=== PATIENT | male | born 1945 | race Caucasian/White ===

== ENCOUNTER → 2023-08-04 17:38 | Outpatient (BNVA) | payer MEDICARE, OTHER, SELFPAY | PROVIDERS: Visit Provider Nurse Practitioner | DX: R06.2 Wheezing (principal) | CPT/HCPCS: 71046 ==

== ENCOUNTER → 2023-08-27 14:26 | Outpatient (BNVA) | payer MEDICARE, OTHER, SELFPAY | PROVIDERS: Visit Provider Nurse Practitioner Family | DX: D48.5 Neoplasm of uncertain behavior of skin (principal); L57.0 Actinic keratosis; L21.8 Other seborrheic dermatitis; D22.5 Melanocytic nevi of trunk; D36.13 Benign neoplasm of peripheral nerves and autonomic nervous system of lower limb, including hip; I78.8 Other diseases of capillaries; D23.112 Other benign neoplasm of skin of right lower eyelid, including canthus; D23.122 Other benign neoplasm of skin of left lower eyelid, including canthus; Z85.828 Personal history of other malignant neoplasm of skin; L82.1 Other seborrheic keratosis | CPT/HCPCS: 11102; 17000; 99204 ==

== ENCOUNTER → 2023-09-10 13:30 | Outpatient (BNVA) | payer MEDICARE, OTHER, SELFPAY | PROVIDERS: Visit Provider Dermatology | DX: C44.319 Basal cell carcinoma of skin of other parts of face (principal); C43.59 Malignant melanoma of other part of trunk; R59.0 Localized enlarged lymph nodes; Z80.8 Family history of malignant neoplasm of other organs or systems | CPT/HCPCS: 99214 ==

== ENCOUNTER 2023-10-16 08:45 | Oncology outpatient (recurring) (ONCR) | payer MEDICARE, OTHER, SELFPAY ==
[2023-10-16 09:04] LABS: Basophils % 0.2 %; Eosinophils # 0.1 10^3/uL (0.0-0.8); Eosinophils % 2.7 %; Hematocrit 33.8 % (37-53); Lymphocytes # 0.7 10^3/uL (0.8-4.8); Mean Corpuscular HGB Conc 32.5 g/dL (30-55); Mean Corpuscular Hemoglobin 31.5 pg (27-33); Mean Corpuscular Volume 96.8 fl (82-101); Mean Platelet Volume 8.8 fL (7.4-10.4); Monocytes # 0.4 10^3/uL (0.2-0.9); Monocytes % 7.8 %; Neutrophils % 74.1 %; Nucleated Red Blood Cells % 0 %; Platelet Count 224 10^3/cmm (157-399); Red Blood Count 3.49 10^6/uL (3.85-5.65); Red Cell Distribution Width 13.2 % (12.1-15.1); White Blood Count 4.86 10^3/uL (3.29-11.43)
[2023-10-16 09:35] LABS: Alanine Aminotransferase 9 U/L (0-41); Albumin Level 3.7 g/dL (3.5-5.2); Alkaline Phosphatase 72 U/L (40-130); Blood Urea Nitrogen 20 mg/dL (8-23); Calcium 8.6 mg/dL (8.5-10.5); Carbon Dioxide 27 mmol/L (22-29); Chloride 101 mmol/L (98-107); Creatinine Clr Calc Pharmacy 55.0926; Globulin 3.2 g/dL (1.3-4.6); Glucose 163 mg/dL (65-115); Osmolality Calculated 294 mOsm/kg (285-295); Sodium 139 mmol/L (136-145); Thyroid Stimulating Hormone 2.34 uIU/mL (0.27-4.20); Total Bilirubin 0.5 mg/dL (0.15-1.2); Total Protein 6.9 g/dL (6.6-8.7)
[2023-10-16 09:36] LABS: Anion Gap 15.8 (5-19); Potassium 4.8 mmol/L (3.5-5.1)
[2023-10-16 09:37] LABS: Aspartate Amino Transferase 17 U/L (0-40); Lactate Dehydrogenase 232 U/L (135-225)
[2023-10-16] MEDS: sodium chloride 0.9% 250 ML 75 ML IV (11:34)
[2023-10-16] MEDS: nivo-relat 12mg-4mg/mL 40 ML in sodium chloride 0.9% 250 ML 580 ML IV (11:35)
[2023-10-16 12:26] VITALS: BP 135/85; PULSE 67; RESP 18; O2SAT 94
== END 2023-10-16 23:59 | disposition home or self-care (01) ==
PROVIDERS: Visit Provider Internal Medicine Medical Oncology
DX: Z53.9 Procedure and treatment not carried out, unspecified reason (principal); C43.59 Malignant melanoma of other part of trunk; Z51.12 Encounter for antineoplastic immunotherapy; C77.3 Secondary and unspecified malignant neoplasm of axilla and upper limb lymph nodes
CPT/HCPCS: 80053; 83615; 84443; 85025; 96413; 99205; 99215; A4222; J7050; J9298

== ENCOUNTER 2023-10-29 13:00 | Oncology outpatient (recurring) (ONCR) | payer MEDICARE, OTHER, SELFPAY ==
[2023-10-22 12:45] LABS: Basophils % 0.5 %; Eosinophils # 0.3 10^3/uL (0.0-0.8); Eosinophils % 5.1 %; Hematocrit 34.5 % (37-53); Lymphocytes % 17.7 %; Mean Corpuscular HGB Conc 32.8 g/dL (30-55); Mean Corpuscular Hemoglobin 31.3 pg (27-33); Mean Corpuscular Volume 95.6 fl (82-101); Mean Platelet Volume 9.2 fL (7.4-10.4); Monocytes # 0.7 10^3/uL (0.2-0.9); Monocytes % 12.3 %; Neutrophils # 3.55 10^3/uL (1.8-7.7); Nucleated Red Blood Cells % 0 %; Platelet Count 209 10^3/cmm (157-399); Red Blood Count 3.61 10^6/uL (3.85-5.65); Red Cell Distribution Width 13.2 % (12.1-15.1); White Blood Count 5.54 10^3/uL (3.29-11.43)
[2023-10-22 12:58] LABS: Alanine Aminotransferase 10 U/L (0-41); Albumin Level 3.7 g/dL (3.5-5.2); Alkaline Phosphatase 86 U/L (40-130); Anion Gap 15.8 (5-19); Aspartate Amino Transferase 16 U/L (0-40); Blood Urea Nitrogen 16 mg/dL (8-23); Calcium 8.7 mg/dL (8.5-10.5); Carbon Dioxide 26 mmol/L (22-29); Chloride 100 mmol/L (98-107); Globulin 3.8 g/dL (1.3-4.6); Glucose 123 mg/dL (65-115); Osmolality Calculated 287 mOsm/kg (285-295); Potassium 4.8 mmol/L (3.5-5.1); Sodium 137 mmol/L (136-145); Total Bilirubin 0.4 mg/dL (0.15-1.2); Total Protein 7.5 g/dL (6.6-8.7)
[2023-10-29 13:21] LABS: Basophils % 0.6 %; Eosinophils # 0.3 10^3/uL (0.0-0.8); Hematocrit 35.4 % (37-53); Lymphocytes % 19.9 %; Mean Corpuscular HGB Conc 31.9 g/dL (30-55); Mean Corpuscular Hemoglobin 30.5 pg (27-33); Mean Corpuscular Volume 95.7 fl (82-101); Monocytes # 0.6 10^3/uL (0.2-0.9); Monocytes % 12.5 %; Neutrophils # 3.12 10^3/uL (1.8-7.7); Neutrophils % 60.8 %; Nucleated Red Blood Cells % 0 %; Platelet Count 188 10^3/cmm (157-399); Red Cell Distribution Width 13.2 % (12.1-15.1); White Blood Count 5.13 10^3/uL (3.29-11.43)
[2023-10-29 13:42] LABS: Alanine Aminotransferase 10 U/L (0-41); Albumin Level 3.8 g/dL (3.5-5.2); Alkaline Phosphatase 83 U/L (40-130); Anion Gap 14.2 (5-19); Aspartate Amino Transferase 22 U/L (0-40); Blood Urea Nitrogen 15 mg/dL (8-23); Calcium 8.5 mg/dL (8.5-10.5); Carbon Dioxide 27 mmol/L (22-29); Chloride 102 mmol/L (98-107); Globulin 3.4 g/dL (1.3-4.6); Glucose 129 mg/dL (65-115); Osmolality Calculated 289 mOsm/kg (285-295); Potassium 5.2 mmol/L (3.5-5.1); Sodium 138 mmol/L (136-145); Total Bilirubin 0.3 mg/dL (0.15-1.2); Total Protein 7.2 g/dL (6.6-8.7)
== END 2023-10-29 23:59 | disposition home or self-care (01) ==
PROVIDERS: Nurse Practitioner Family; Visit Provider Internal Medicine Medical Oncology
DX: C43.59 Malignant melanoma of other part of trunk (principal); Z53.9 Procedure and treatment not carried out, unspecified reason
CPT/HCPCS: 36415; 80053; 85025

== ENCOUNTER 2023-11-13 09:30 | Oncology outpatient (recurring) (ONCR) | payer MEDICARE, OTHER, SELFPAY ==
[2023-11-05 14:02] LABS: Basophils % 0.6 %; Eosinophils # 0.3 10^3/uL (0.0-0.8); Hematocrit 34.2 % (37-53); Lymphocytes % 18.4 %; Mean Corpuscular Hemoglobin 31.3 pg (27-33); Mean Corpuscular Volume 94.7 fl (82-101); Mean Platelet Volume 9.2 fL (7.4-10.4); Monocytes # 0.5 10^3/uL (0.2-0.9); Monocytes % 9.5 %; Neutrophils # 3.51 10^3/uL (1.8-7.7); Neutrophils % 65.3 %; Nucleated Red Blood Cells % 0 %; Platelet Count 148 10^3/cmm (157-399); Red Blood Count 3.61 10^6/uL (3.85-5.65); Red Cell Distribution Width 13.3 % (12.1-15.1); White Blood Count 5.37 10^3/uL (3.29-11.43)
[2023-11-05 14:20] LABS: Alanine Aminotransferase 9 U/L (0-41); Albumin Level 3.8 g/dL (3.5-5.2); Alkaline Phosphatase 78 U/L (40-130); Aspartate Amino Transferase 16 U/L (0-40); Blood Urea Nitrogen 14 mg/dL (8-23); Calcium 8.5 mg/dL (8.5-10.5); Carbon Dioxide 28 mmol/L (22-29); Chloride 100 mmol/L (98-107); Glucose 105 mg/dL (65-115); Osmolality Calculated 285 mOsm/kg (285-295); Sodium 137 mmol/L (136-145); Total Bilirubin 0.5 mg/dL (0.15-1.2); Total Protein 6.8 g/dL (6.6-8.7)
[2023-11-13 09:43] LABS: Basophils % 0.6 %; Eosinophils # 0.3 10^3/uL (0.0-0.8); Eosinophils % 6.1 %; Hematocrit 34.8 % (37-53); Lymphocytes # 0.9 10^3/uL (0.8-4.8); Lymphocytes % 19.2 %; Mean Corpuscular HGB Conc 32.2 g/dL (30-55); Mean Corpuscular Hemoglobin 30.8 pg (27-33); Mean Corpuscular Volume 95.6 fl (82-101); Mean Platelet Volume 8.9 fL (7.4-10.4); Monocytes # 0.4 10^3/uL (0.2-0.9); Neutrophils # 3.17 10^3/uL (1.8-7.7); Neutrophils % 64.7 %; Nucleated Red Blood Cells % 0 %; Platelet Count 130 10^3/cmm (157-399); Red Blood Count 3.64 10^6/uL (3.85-5.65); Red Cell Distribution Width 13.8 % (12.1-15.1)
[2023-11-13 10:24] LABS: Alanine Aminotransferase 8 U/L (0-41); Albumin Level 3.8 g/dL (3.5-5.2); Alkaline Phosphatase 68 U/L (40-130); Anion Gap 12.7 (5-19); Aspartate Amino Transferase 16 U/L (0-40); Blood Urea Nitrogen 18 mg/dL (8-23); Calcium 8.6 mg/dL (8.5-10.5); Carbon Dioxide 28 mmol/L (22-29); Chloride 100 mmol/L (98-107); Globulin 2.9 g/dL (1.3-4.6); Glucose 186 mg/dL (65-115); Lactate Dehydrogenase 217 U/L (135-225); Osmolality Calculated 289 mOsm/kg (285-295); Potassium 4.7 mmol/L (3.5-5.1); Sodium 136 mmol/L (136-145); Thyroid Stimulating Hormone 2.82 uIU/mL (0.27-4.20); Total Bilirubin 0.5 mg/dL (0.15-1.2); Total Protein 6.7 g/dL (6.6-8.7)
[2023-11-13 11:31] LABS: Charge for UA Resulting for Rev
[2023-11-13 11:39] LABS: Bilirubin Urine Negative (Negative); Blood Urine 3+ (Negative); Glucose Urine UA Negative (Normal); Ketones Urine Negative (Negative); Leukocyte Esterase Urine Negative (Negative); Nitrate Urine Negative (Negative); Protein Urine Trace (Negative); Specific Gravity, Urine 1.005 (1.005-1.030); Urine Appearance Clear (CLEAR); pH Urine 7.5 (5-7)
[2023-11-13 11:44] LABS: Bacteria Urine None Seen /hpf; Hyaline Casts Urine 0-4 /lpf; RBC Urine 51-100 /hpf (0-2); Squamous Epithelial Cell Urine 0-5 /hpf (0-5); WBC Urine 0-5 /hpf (0-5)
[2023-11-13 11:52] LABS: Urine Color Orange (Yellow)
[2023-11-13 11:53] LABS: Add Urine Culture? Yes
[2023-11-13] MEDS: nivo-relat 12mg-4mg/mL 40 ML in sodium chloride 0.9% 250 ML 580 ML IV (12:01)
[2023-11-13 12:37] VITALS: BP 155/70; PULSE 42; RESP 18; TEMP 35.7; O2SAT 94
== END 2023-11-13 23:59 | disposition home or self-care (01) ==
PROVIDERS: Nurse Practitioner Family; Visit Provider Internal Medicine Medical Oncology
DX: C43.59 Malignant melanoma of other part of trunk (principal); Z79.899 Other long term (current) drug therapy; Z53.9 Procedure and treatment not carried out, unspecified reason; Z51.12 Encounter for antineoplastic immunotherapy; R30.0 Dysuria; Z87.891 Personal history of nicotine dependence; Z80.8 Family history of malignant neoplasm of other organs or systems; Z79.620 Long term (current) use of immunosuppressive biologic
CPT/HCPCS: 36415; 80053; 81003; 81015; 83615; 84443; 85025; 87086; 96413; 99214; A4222; J7050; J9298

== ENCOUNTER 2023-11-27 13:15 | Oncology outpatient (recurring) (ONCR) | payer MEDICARE, OTHER, SELFPAY ==
[2023-11-27 13:37] LABS: Basophils % 0.2 %; Eosinophils # 0.4 10^3/uL (0.0-0.8); Hematocrit 35.8 % (37-53); Lymphocytes # 1.1 10^3/uL (0.8-4.8); Lymphocytes % 19.9 %; Mean Corpuscular HGB Conc 32.4 g/dL (30-55); Mean Corpuscular Hemoglobin 31.2 pg (27-33); Mean Corpuscular Volume 96.2 fl (82-101); Mean Platelet Volume 8.8 fL (7.4-10.4); Monocytes # 0.5 10^3/uL (0.2-0.9); Monocytes % 10.2 %; Neutrophils # 3.33 10^3/uL (1.8-7.7); Neutrophils % 62.5 %; Nucleated Red Blood Cells % 0 %; Platelet Count 162 10^3/cmm (157-399); Red Blood Count 3.72 10^6/uL (3.85-5.65); Red Cell Distribution Width 14.1 % (12.1-15.1); White Blood Count 5.32 10^3/uL (3.29-11.43)
[2023-11-27 14:03] LABS: Alanine Aminotransferase 8 U/L (0-41); Alkaline Phosphatase 73 U/L (40-130); Anion Gap 15.1 (5-19); Aspartate Amino Transferase 16 U/L (0-40); Blood Urea Nitrogen 17 mg/dL (8-23); Calcium 8.6 mg/dL (8.5-10.5); Carbon Dioxide 28 mmol/L (22-29); Chloride 102 mmol/L (98-107); Globulin 3.1 g/dL (1.3-4.6); Glucose 110 mg/dL (65-115); Osmolality Calculated 292 mOsm/kg (285-295); Potassium 5.1 mmol/L (3.5-5.1); Sodium 140 mmol/L (136-145); Thyroid Stimulating Hormone 2.12 uIU/mL (0.27-4.20); Total Bilirubin 0.5 mg/dL (0.15-1.2); Total Protein 7.1 g/dL (6.6-8.7)
== END 2023-11-29 23:59 | disposition home or self-care (01) ==
PROVIDERS: Nurse Practitioner Family; Visit Provider Internal Medicine Medical Oncology
DX: C43.59 Malignant melanoma of other part of trunk; C79.89 Secondary malignant neoplasm of other specified sites; C44.319 Basal cell carcinoma of skin of other parts of face; R59.0 Localized enlarged lymph nodes; L82.0 Inflamed seborrheic keratosis; L98.8 Other specified disorders of the skin and subcutaneous tissue; L82.1 Other seborrheic keratosis; L81.4 Other melanin hyperpigmentation
CPT/HCPCS: 17110; 36415; 80053; 84443; 85025; 99214

== ENCOUNTER 2023-12-11 08:28 | Oncology outpatient (recurring) (ONCR) | payer MEDICARE, OTHER, SELFPAY ==
[2023-12-11 10:12] LABS: Basophils % 0.5 %; Eosinophils # 0.5 10^3/uL (0.0-0.8); Eosinophils % 9.4 %; Hematocrit 38.7 % (37-53); Lymphocytes # 1.1 10^3/uL (0.8-4.8); Lymphocytes % 19.2 %; Mean Corpuscular Volume 93.7 fl (82-101); Mean Platelet Volume 9.8 fL (7.4-10.4); Monocytes # 0.5 10^3/uL (0.2-0.9); Monocytes % 9.6 %; Neutrophils # 3.37 10^3/uL (1.8-7.7); Neutrophils % 60.9 %; Nucleated Red Blood Cells % 0 %; Platelet Count 188 10^3/cmm (157-399); Red Blood Count 4.13 10^6/uL (3.85-5.65); Red Cell Distribution Width 14.4 % (12.1-15.1); White Blood Count 5.53 10^3/uL (3.29-11.43)
[2023-12-11 11:52] LABS: Alanine Aminotransferase 9 U/L (0-41); Albumin Level 4.2 g/dL (3.5-5.2); Alkaline Phosphatase 78 U/L (40-130); Anion Gap 11.6 (5-19); Aspartate Amino Transferase 18 U/L (0-40); Blood Urea Nitrogen 17 mg/dL (8-23); Carbon Dioxide 30 mmol/L (22-29); Chloride 102 mmol/L (98-107); Creatinine Clr Calc Pharmacy 64.8251; Globulin 2.9 g/dL (1.3-4.6); Glucose 94 mg/dL (65-115); Osmolality Calculated 289 mOsm/kg (285-295); Potassium 4.6 mmol/L (3.5-5.1); Sodium 139 mmol/L (136-145); Total Bilirubin 0.6 mg/dL (0.15-1.2); Total Protein 7.1 g/dL (6.6-8.7)
[2023-12-11] MEDS: nivo-relat 12mg-4mg/mL 40 ML in sodium chloride 0.9% 250 ML 580 ML IV (12:34)
[2023-12-11 13:05] VITALS: BP 120/76; PULSE 74; RESP 16; TEMP 36.6; O2SAT 95
== END 2023-12-11 23:59 | disposition home or self-care (01) ==
PROVIDERS: Nurse Practitioner Family; Visit Provider Internal Medicine Medical Oncology
DX: Z51.12 Encounter for antineoplastic immunotherapy (principal); C43.59 Malignant melanoma of other part of trunk; Z79.899 Other long term (current) drug therapy; R30.0 Dysuria; Z87.891 Personal history of nicotine dependence; Z80.8 Family history of malignant neoplasm of other organs or systems; Z79.620 Long term (current) use of immunosuppressive biologic
CPT/HCPCS: 80053; 85025; 96413; 99214; A4222; J7050; J9298

== ENCOUNTER → 2023-12-25 13:17 | Outpatient (BNVA) | payer MEDICARE, OTHER, SELFPAY | PROVIDERS: Visit Provider Dermatology | DX: C44.319 Basal cell carcinoma of skin of other parts of face (principal); R59.0 Localized enlarged lymph nodes; L57.0 Actinic keratosis; Z80.8 Family history of malignant neoplasm of other organs or systems; L82.0 Inflamed seborrheic keratosis | CPT/HCPCS: 17000; 17110; 99214 ==

== ENCOUNTER 2024-01-29 09:32 | Oncology outpatient (recurring) (ONCR) | payer MEDICARE, OTHER, SELFPAY ==
[2024-01-29 10:40] LABS: Basophils % 0.5 %; Eosinophils # 0.2 10^3/uL (0.0-0.8); Eosinophils % 2.7 %; Hematocrit 38.2 % (37-53); Lymphocytes # 1.4 10^3/uL (0.8-4.8); Lymphocytes % 18.3 %; Mean Corpuscular Hemoglobin 30.1 pg (27-33); Mean Corpuscular Volume 91.2 fl (82-101); Mean Platelet Volume 9.1 fL (7.4-10.4); Monocytes # 0.6 10^3/uL (0.2-0.9); Monocytes % 7.7 %; Neutrophils # 5.32 10^3/uL (1.8-7.7); Neutrophils % 70.5 %; Nucleated Red Blood Cells % 0 %; Platelet Count 215 10^3/cmm (157-399); Red Blood Count 4.19 10^6/uL (3.85-5.65); Red Cell Distribution Width 14.5 % (12.1-15.1); White Blood Count 7.54 10^3/uL (3.29-11.43)
[2024-01-29 11:07] LABS: Alanine Aminotransferase 7 U/L (0-41); Albumin Level 4.1 g/dL (3.5-5.2); Alkaline Phosphatase 85 U/L (40-130); Anion Gap 13.6 (5-19); Aspartate Amino Transferase 20 U/L (0-40); Blood Urea Nitrogen 25 mg/dL (8-23); Calcium 8.4 mg/dL (8.5-10.5); Carbon Dioxide 27 mmol/L (22-29); Chloride 103 mmol/L (98-107); Globulin 2.7 g/dL (1.3-4.6); Glucose 133 mg/dL (65-115); Osmolality Calculated 294 mOsm/kg (285-295); Potassium 4.6 mmol/L (3.5-5.1); Sodium 139 mmol/L (136-145); Thyroid Stimulating Hormone 2.17 uIU/mL (0.27-4.20); Total Bilirubin 0.5 mg/dL (0.15-1.2); Total Protein 6.8 g/dL (6.6-8.7)
[2024-01-29 11:16] LABS: Creatinine Clr Calc Pharmacy 53.8492
== END 2024-01-29 23:59 | disposition home or self-care (01) ==
PROVIDERS: Visit Provider Nurse Practitioner
DX: C43.59 Malignant melanoma of other part of trunk (principal); Z79.899 Other long term (current) drug therapy
CPT/HCPCS: 80053; 84443; 85025; 99214

== ENCOUNTER 2024-02-06 14:59 | Oncology outpatient (recurring) (ONCR) | payer MEDICARE, OTHER, SELFPAY ==
[2024-02-05 10:14] LABS: Basophils % 0.3 %; Eosinophils # 0.2 10^3/uL (0.0-0.8); Eosinophils % 3.8 %; Hematocrit 40.4 % (37-53); Lymphocytes # 1.2 10^3/uL (0.8-4.8); Lymphocytes % 20.3 %; Mean Corpuscular HGB Conc 32.2 g/dL (30-55); Mean Corpuscular Volume 93.3 fl (82-101); Mean Platelet Volume 9.2 fL (7.4-10.4); Monocytes # 0.4 10^3/uL (0.2-0.9); Monocytes % 6.8 %; Neutrophils # 3.94 10^3/uL (1.8-7.7); Neutrophils % 68.6 %; Nucleated Red Blood Cells % 0 %; Platelet Count 214 10^3/cmm (157-399); Red Blood Count 4.33 10^6/uL (3.85-5.65); Red Cell Distribution Width 14.2 % (12.1-15.1); White Blood Count 5.75 10^3/uL (3.29-11.43)
[2024-02-05 10:37] LABS: Alanine Aminotransferase 8 U/L (0-41); Alkaline Phosphatase 77 U/L (40-130); Anion Gap 11.4 (5-19); Aspartate Amino Transferase 15 U/L (0-40); Blood Urea Nitrogen 17 mg/dL (8-23); Calcium 8.5 mg/dL (8.5-10.5); Carbon Dioxide 30 mmol/L (22-29); Chloride 103 mmol/L (98-107); Creatinine Clr Calc Pharmacy 58.8489; Globulin 2.2 g/dL (1.3-4.6); Glucose 164 mg/dL (65-115); Lactate Dehydrogenase 125 U/L (135-225); Magnesium 1.6 mg/dL (1.7-2.3); Osmolality Calculated 295 mOsm/kg (285-295); Potassium 4.4 mmol/L (3.5-5.1); Sodium 140 mmol/L (136-145); Total Bilirubin 0.6 mg/dL (0.15-1.2); Total Protein 6.2 g/dL (6.6-8.7)
[2024-02-05] MEDS: nivo-relat 12mg-4mg/mL 40 ML in sodium chloride 0.9% 250 ML 580 ML IV (10:59)
[2024-02-05 11:41] VITALS: BP 114/69; PULSE 61; RESP 17; TEMP 36.1; O2SAT 99
--- NOTE | 2024-02-06 15:01 | PETR_ITS ---
PROCEDURE INFORMATION: Exam: PET/CT Whole Body Exam date and time: 02/06/2024 3:55 PM Age: 78 years old Clinical indication: Condition or disease; Primary cancer: Malignant melanoma; Follow-up oncological assessment; Additional info: Malignant melanoma of back LABS AND CLINICAL REPORTS: Glucose: 74 mg/dl Treatment strategy for malignancy (PET staging): Restaging (PS) TECHNIQUE: Imaging protocol: Following at least four-hour fasting and following the injection of radiopharmaceutical, low dose CT images were obtained. Then, PET images were obtained. Attenuation corrected images were constructed using the CT scan. Fused images of PET and CT were reviewed. The standardized uptake values (SUV) reported below are maximum values within a region of interest, expressed in gm/ml. Exam includes the whole body. Radiopharmaceutical: 12.63 mCi F-18 FDG (Fluorodeoxyglucose), IV. Time of imaging post radiopharmaceutical administration: 49 minutes Injection site: Right antecubital COMPARISON: CR XR chest 2V* [id number] 08/04/2023 5:46 PM FINDINGS: Brain: Visualized brain has normal physiologic uptake. Pharynx: No abnormal uptake. Larynx: No abnormal uptake. Thyroid: Symmetric ouqw-zx-zpckofsi thyroid gland FDG uptake without discrete nodule. Lungs, pleura and trachea: Mild nodular thickening at the posterior right main bronchus with FDG uptake measuring approximately 6 mm thickness showing SUV max 3.4 on axial image 139. Non FDG avid 3 mm left upper lobe nodule on axial image 115. 8 x 5 mm left upper lobe nodule on axial image 144 of series 202 without FDG avidity. Bibasilar platelike atelectasis versus scarring. Heart: Normal physiologic uptake. Coronary arteries: Moderate coronary artery calcification. Mediastinal space: No abnormal uptake. Liver: No abnormal uptake. Gallbladder and biliary ducts: No abnormal uptake. Pancreas: No abnormal uptake. Spleen: Focal FDG uptake at the spleen shows SUV max 10.8 on axial image 182. No discrete underlying CT abnormality. Adrenal glands: No abnormal uptake. Kidneys and ureters: Normal physiologic uptake. Stomach and bowel: No abnormal uptake. Colonic diverticulosis without findings of diverticulitis. Reproductive: Enlarged prostate measures 5.4 cm in transverse dimension. No abnormal uptake. Asymmetric jurs-ca-aoafijbl left testicular FDG uptake without underlying CT abnormality. Right testicle appears atrophic compared to the left. Vasculature: No abnormal uptake. Moderate systemic atherosclerotic calcification without aortic aneurysm. Lymph nodes: Right submandibular node measures 6 mm in the short axis on axial image 84 and shows SUV max 3.8. Left hilar lymph node measures 8 mm in the short axis on axial image 146 and shows avid FDG uptake with SUV max 9.6. Low-level FDG uptake at right axillary nodes, index node measuring 9 mm in the short axis on axial image 139 showing SUV max 2.1 and node measuring 8 mm in the short axis on axial image 150 with SUV max 2.8. Calcified right hilar lymph nodes in keeping with sequela of old granulomatous disease. Skeleton: Degenerative change along the axial and appendicular skeletal system. Soft tissues: No abnormal uptake in the visualized head, neck, chest, abdomen, pelvis, and extremities. Non FDG avid 8 mm dermal/superficial subcutaneous left upper back (cervicothoracic junction level) soft tissue nodule on axial images 81 and 82. PET/PET WB melanoma INITIAL [id number] IMPRESSION: 1. Non FDG avid 8 mm dermal/superficial subcutaneous left upper back (cervicothoracic junction level) soft tissue nodule. Correlate with clinical findings. 2. Scattered FDG avid lymph nodes with mild uptake at right submandibular node, avid uptake at left hilar node, and mild uptake at right axillary nodes. These may be reactive, neoplastic process not excluded. 3. Mildly FDG avid mild nodular thickening of the posterior right main bronchus may represent small lymph node or bronchial neoplasm. 4. Solitary focus of splenic FDG uptake may be granulomatous or neoplastic. 5. Couple subcentimeter left upper lobe nodules below size threshold for accurate FDG assessment. Recommend follow-up chest CT in 3-6 months. 6. Asymmetric ujil-xv-cwecnyso left testicular FDG uptake without underlying CT abnormality is nonspecific, may be physiologic given atrophic appearance of the right testicle, could also be inflammatory or possibly neoplastic. Recommend ultrasound. 7. Symmetric thyroid gland FDG uptake is likely inflammatory.
== END 2024-02-06 16:36 | disposition home or self-care (01) ==
LOC: RAD 14:59 → ONCMED 16:36
PROVIDERS: Internal Medicine Hematology & Oncology; Visit Provider Nurse Practitioner
DX: C43.59 Malignant melanoma of other part of trunk (principal); R59.0 Localized enlarged lymph nodes; J98.09 Other diseases of bronchus, not elsewhere classified; D73.9 Disease of spleen, unspecified; R91.8 Other nonspecific abnormal finding of lung field; E07.9 Disorder of thyroid, unspecified
CPT/HCPCS: 78816; 80053; 83615; 83735; 84443; 85025; 96413; 99214; A4222; A9552; J7050; J9298

== ENCOUNTER 2024-02-18 12:14 | Oncology outpatient (recurring) (ONCR) | payer MEDICARE, OTHER, SELFPAY ==
[2024-02-18 12:44] LABS: Basophils % 0.6 %; Eosinophils # 0.2 10^3/uL (0.0-0.8); Eosinophils % 3.8 %; Hematocrit 36.1 % (37-53); Lymphocytes # 1.5 10^3/uL (0.8-4.8); Lymphocytes % 24.2 %; Mean Corpuscular HGB Conc 33.2 g/dL (30-55); Mean Corpuscular Hemoglobin 30.6 pg (27-33); Mean Corpuscular Volume 92.1 fl (82-101); Mean Platelet Volume 8.9 fL (7.4-10.4); Monocytes # 0.8 10^3/uL (0.2-0.9); Monocytes % 11.9 %; Neutrophils # 3.78 10^3/uL (1.8-7.7); Neutrophils % 59.3 %; Nucleated Red Blood Cells % 0 %; Platelet Count 216 10^3/cmm (157-399); Red Blood Count 3.92 10^6/uL (3.85-5.65); White Blood Count 6.37 10^3/uL (3.29-11.43)
[2024-02-18 13:12] LABS: Alanine Aminotransferase 8 U/L (0-41); Albumin Level 3.7 g/dL (3.5-5.2); Alkaline Phosphatase 82 U/L (40-130); Anion Gap 12.8 (5-19); Aspartate Amino Transferase 18 U/L (0-40); Blood Urea Nitrogen 19 mg/dL (8-23); Calcium 8.7 mg/dL (8.5-10.5); Carbon Dioxide 29 mmol/L (22-29); Chloride 102 mmol/L (98-107); Creatinine Clr Calc Pharmacy 49.8929; Globulin 3.2 g/dL (1.3-4.6); Glucose 116 mg/dL (65-115); Osmolality Calculated 291 mOsm/kg (285-295); Potassium 4.8 mmol/L (3.5-5.1); Sodium 139 mmol/L (136-145); Total Bilirubin 0.6 mg/dL (0.15-1.2); Total Protein 6.9 g/dL (6.6-8.7)
== END 2024-02-28 23:59 | disposition home or self-care (01) ==
PROVIDERS: Nurse Practitioner Family; Visit Provider Nurse Practitioner
DX: C43.59 Malignant melanoma of other part of trunk (principal); Z79.899 Other long term (current) drug therapy; Z51.12 Encounter for antineoplastic immunotherapy; Z53.9 Procedure and treatment not carried out, unspecified reason; R30.0 Dysuria; Z87.891 Personal history of nicotine dependence; Z80.8 Family history of malignant neoplasm of other organs or systems; Z79.620 Long term (current) use of immunosuppressive biologic
CPT/HCPCS: 36415; 80053; 85025; 99214

== ENCOUNTER 2024-03-04 08:30 | Oncology outpatient (recurring) (ONCR) | payer MEDICARE, OTHER, SELFPAY ==
--- NOTE | 2024-03-03 06:45 | US_ITS ---
WS: [id number] TESTICULAR ULTRASOUND HISTORY: ABNORMAL PET COMPARISON: PET/CT 02/06/2024 TECHNIQUE: Real-time and color Doppler imaging or utilized to perform a testicular ultrasound. Right testicle: 3.1 cm x 2.0 cm x 1.8 cm. Moderate atrophy with irregular borders of the RIGHT testicle. There is no mass identified. Normal Do ppler. No significant hydrocele. Right epididymis: Mildly heterogeneous epididymis. There are a few small epididymal cysts. Left testicle: 3.5 cm x 2.9 cm x 2.4 cm. Normal size testicle. There is no mass identified. Very minimal coarse echotexture throughout the annie ticle. Normal color Doppler is present throughout. Systolic and diastolic velocities are both present. Small circumferential hydrocele. Left epididymis: Enlarged epididymis with no increased vascularity. There are a few spermatoceles at the epididymal head. US/US scrotum [id number] IMPRESSION: 1. No testicular mass or torsion is identified. There is no mass in the LEFT t esticle or cyst as suspected by PET/CT imaging. 2. Small circumferential LEFT hydrocele. 3. Chronic atrophy with irregular shaped RIGHT testicle.
[2024-03-04 09:12] LABS: Basophils % 0.3 %; Eosinophils # 0.2 10^3/uL (0.0-0.8); Eosinophils % 2.2 %; Hematocrit 39.2 % (37-53); Lymphocytes # 1.5 10^3/uL (0.8-4.8); Lymphocytes % 16.9 %; Mean Corpuscular HGB Conc 31.9 g/dL (30-55); Mean Corpuscular Volume 97.3 fl (82-101); Mean Platelet Volume 9.3 fL (7.4-10.4); Monocytes # 0.6 10^3/uL (0.2-0.9); Monocytes % 6.7 %; Neutrophils # 6.45 10^3/uL (1.8-7.7); Neutrophils % 73.6 %; Nucleated Red Blood Cells % 0 %; Platelet Count 209 10^3/cmm (157-399); Red Blood Count 4.03 10^6/uL (3.85-5.65); Red Cell Distribution Width 14.7 % (12.1-15.1); White Blood Count 8.77 10^3/uL (3.29-11.43)
[2024-03-04 09:39] LABS: Alanine Aminotransferase 15 U/L (0-41); Albumin Level 3.9 g/dL (3.5-5.2); Alkaline Phosphatase 66 U/L (40-130); Blood Urea Nitrogen 26 mg/dL (8-23); Calcium 8.8 mg/dL (8.5-10.5); Carbon Dioxide 31 mmol/L (22-29); Chloride 102 mmol/L (98-107); Creatinine Clr Calc Pharmacy 47.7452; Globulin 2.8 g/dL (1.3-4.6); Glucose 98 mg/dL (65-115); Magnesium 1.6 mg/dL (1.7-2.3); Osmolality Calculated 293 mOsm/kg (285-295); Sodium 139 mmol/L (136-145); Thyroid Stimulating Hormone 32.95 uIU/mL (0.27-4.20); Total Bilirubin 0.5 mg/dL (0.15-1.2); Total Protein 6.7 g/dL (6.6-8.7)
[2024-03-04 09:42] LABS: Anion Gap 10.9 (5-19); Aspartate Amino Transferase 21 U/L (0-40); Potassium 4.9 mmol/L (3.5-5.1)
[2024-03-04 09:43] LABS: Lactate Dehydrogenase 181 U/L (135-225)
[2024-03-04] MEDS: nivo-relat 12mg-4mg/mL 40 ML in sodium chloride 0.9% 250 ML 580 ML IV (11:50)
== END 2024-03-04 23:59 | disposition home or self-care (01) ==
PROVIDERS: Internal Medicine Hematology & Oncology; PCP Family Medicine; Visit Provider Nurse Practitioner
DX: C43.59 Malignant melanoma of other part of trunk (principal); Z79.899 Other long term (current) drug therapy; Z53.9 Procedure and treatment not carried out, unspecified reason; Z51.11 Encounter for antineoplastic chemotherapy; R53.83 Other fatigue; Z87.891 Personal history of nicotine dependence; M79.18 Myalgia, other site; G93.9 Disorder of brain, unspecified; Z79.52 Long term (current) use of systemic steroids
CPT/HCPCS: 76870; 80053; 83615; 83735; 84443; 85025; 96413; 99214; A4222; J7050; J9298

== ENCOUNTER 2024-04-01 08:56 | Oncology outpatient (recurring) (ONCR) | payer MEDICARE, OTHER, SELFPAY ==
[2024-04-01 09:55] LABS: Basophils % 0.2 %; Eosinophils # 0.1 10^3/uL (0.0-0.8); Eosinophils % 1.5 %; Hematocrit 42.4 % (37-53); Lymphocytes # 1.5 10^3/uL (0.8-4.8); Lymphocytes % 18.6 %; Mean Corpuscular HGB Conc 31.4 g/dL (30-55); Mean Corpuscular Hemoglobin 30.9 pg (27-33); Mean Corpuscular Volume 98.4 fl (82-101); Mean Platelet Volume 9.3 fL (7.4-10.4); Monocytes # 0.5 10^3/uL (0.2-0.9); Neutrophils # 5.87 10^3/uL (1.8-7.7); Neutrophils % 73.2 %; Nucleated Red Blood Cells % 0 %; Platelet Count 196 10^3/cmm (157-399); Red Blood Count 4.31 10^6/uL (3.85-5.65); Red Cell Distribution Width 14.8 % (12.1-15.1); White Blood Count 8.02 10^3/uL (3.29-11.43)
[2024-04-01 10:13] LABS: Alanine Aminotransferase 22 U/L (0-41); Albumin Level 4.1 g/dL (3.5-5.2); Alkaline Phosphatase 60 U/L (40-130); Anion Gap 14.8 (5-19); Aspartate Amino Transferase 18 U/L (0-40); Blood Urea Nitrogen 28 mg/dL (8-23); Calcium 8.7 mg/dL (8.5-10.5); Carbon Dioxide 30 mmol/L (22-29); Chloride 103 mmol/L (98-107); Creatinine Clr Calc Pharmacy 51.5399; Globulin 2.4 g/dL (1.3-4.6); Glucose 175 mg/dL (65-115); Osmolality Calculated 306 mOsm/kg (285-295); Potassium 4.8 mmol/L (3.5-5.1); Sodium 143 mmol/L (136-145); Thyroid Stimulating Hormone 37.33 uIU/mL (0.27-4.20); Total Bilirubin 0.9 mg/dL (0.15-1.2); Total Protein 6.5 g/dL (6.6-8.7)
[2024-04-01] MEDS: nivo-relat 12mg-4mg/mL 40 ML in sodium chloride 0.9% 250 ML 580 ML IV (13:08)
[2024-04-01 13:43] VITALS: BP 130/77; PULSE 69; O2SAT 99
== END 2024-04-01 23:59 | disposition home or self-care (01) ==
PROVIDERS: PCP Family Medicine; Visit Provider Nurse Practitioner
DX: C43.59 Malignant melanoma of other part of trunk (principal); Z79.899 Other long term (current) drug therapy; M79.18 Myalgia, other site; Z51.12 Encounter for antineoplastic immunotherapy; Z87.891 Personal history of nicotine dependence; C79.51 Secondary malignant neoplasm of bone; Z79.52 Long term (current) use of systemic steroids; E03.9 Hypothyroidism, unspecified
CPT/HCPCS: 77263; 77290; 77334; 80053; 84443; 85025; 96413; 99213; A4222; J7050; J9298

== ENCOUNTER 2024-04-04 17:12 | Inpatient (IN) | payer MEDICARE, OTHER, SELFPAY ==
[2024-04-04] VITALS (7 sets, daily range): BP systolic 69–97; BP diastolic 44–61; PULSE 72–98; RESP 15–20; TEMP 36.5–38.2; O2SAT 91–98; BMI 31.2
--- NOTE | 2024-04-04 17:32 | XRR_ITS ---
PROCEDURE INFORMATION: Exam: XR Chest Exam date and time: 04/04/2024 5:42 PM Age: 78 years old Clinical indication: Patient HX: Fever; AMS; SOB; Melanoma PT TECHNIQUE: Imaging protocol: Radiologic exam of the chest. Views: 1 view. COMPARISON: CR XR chest 2V* [id number] 08/04/2023 5:46 PM FINDINGS: Lungs: No pulmonary consolidation. Pleural spaces: No pneumothorax or pleural effusion. Heart/Mediastinum: Cardiomegaly. Bones/joints: Scattered degenerative changes in the spine and shoulders. XR/XR chest 1V portable [id number] IMPRESSION: 1. No evidence of acute cardiopulmonary disease. Chronic findings as above.
--- NOTE | 2024-04-04 17:46 | ECG_ITS ---
[facility] [employer] Test Date: 2024-04-04 Pat Name: Kush Dodd Department: Room: Gender: Male Chief Environmental Commitment Officer: : 1945 Requested By: Diane Toussaint Order Number: [id number] Pressley MD: Francy Benitez M.D. Measurements Intervals [place] Rate: 95 P: 78 [place]: 182 QRS: 9 QRSD: 106 T: 74 QT: 340 QTc: 429 Interpretive Statements SINUS RHYTHM WITH OCCASIONAL VENTRICULAR PREMATURE COMPLEXES WITH FREQUENT SUPRAVENTRICULAR PREMATURE COMPLEXES POSSIBLE ANTERIOR MYOCARDIAL INFARCTION , OF INDETERMINATE AGE [30 ms Q WAVE IN V3/V4, OR R < 0.2 mV IN V4] No previous ECG available for comparison Electronically Signed On 04-05-2024 17:07:49 SURGICAL SALES REPRESENTATIVE by Francy Benitez M.D. [email or web address]
[2024-04-04 17:48] LABS: Basophils % 0.4 %; Eosinophils # 0.2 10^3/uL (0.0-0.8); Eosinophils % 2.3 %; Hematocrit 39.7 % (37-53); Lymphocytes # 1.9 10^3/uL (0.8-4.8); Mean Corpuscular HGB Conc 32.7 g/dL (30-55); Mean Corpuscular Hemoglobin 31.2 pg (27-33); Mean Corpuscular Volume 95.2 fl (82-101); Mean Platelet Volume 9.5 fL (7.4-10.4); Monocytes % 12.3 %; Neutrophils # 5.04 10^3/uL (1.8-7.7); Neutrophils % 61.8 %; Nucleated Red Blood Cells % 0 %; Platelet Count 158 10^3/cmm (157-399); Red Blood Count 4.17 10^6/uL (3.85-5.65); Red Cell Distribution Width 14.4 % (12.1-15.1); White Blood Count 8.16 10^3/uL (3.29-11.43)
--- NOTE | 2024-04-04 17:50 | ED_ITS ---
HPI - Weakness 2 General: Chief complaint: Weakness Stated complaint: ams, joint n muscle pain Time Seen by Provider: 04/04/24 17:34 History of Present Illness: 78-year-old man with a history of melano ma who is currently receiving chemotherapy with last treatment about 4 days ago, hypothyroidism, hypertension and hyperlipidemia who presents the emergency room with weakness and confusion. He is febrile on presentation with a temp of 100.8. He says he has not had any cough but he has had some mild sneeze. He has increased swelling in his legs. On presentation his blood pressure is 69/44. Review of Systems 2 Narrative: Constitutional symptoms: Negative except as documented in HPI. Skin symptoms: Negative except as documented in HPI. Eye symptoms: Negative except as documented in HPI. ENMT symptoms: Negative except as documented in HPI. Respiratory symptoms: Negative except as documented in HPI. Cardiovascular symptoms: Negative except as documented in HPI. Gastrointestinal symptoms: Negative except as documented in HPI. Genitourinary symptoms: Negative except as documented in HPI. Musculoskeletal symptoms: Negative except as documented in HPI. Neurologic symptoms: Negative except as documented in HPI. Psychiatric symptoms: Negative except as documented in HPI. Endocrine symptoms: Negative except as documented in HPI. PFSH ED 2 PFSH: Medical History Skin cancer, basal cell Bladder cancer COPD (chronic obstructive pulmonary disease) Hypertension Malignant melanoma of back Surgical History History of right knee surgery History of hernia repair Family History Father Melanoma Mother Heart disease Sister Diabetes Social History Smoking and tobacco/nicotine status: former use of tobacco/nicotine Additional social history: He quit smoking 40 to 50 years ago. Physical Exam 2 Narrative: EXAM NARRATIVE: General: Alert, no acute distress. Skin: Warm, dry. Head: Normocephalic, atraumatic. Neck: Supple, trachea midline. Eye: Extraocular movements are intact. Ears, nose, mouth and throat: mucosa moist. Cardiovascular: Regular, Normal peripheral perfusion. 2+ tibial edema Respiratory: Lungs are clear to auscultation, respirations are non-labored, breath sounds are equal, Symmetrical chest wall expansion. Gastrointestinal: Soft, Nontender, Non distended Musculoskeletal: Normal ROM, no deformity. Neurological: Alert and oriented, No focal neurological deficit observed. Patient does have some mild confusion at times. Difficulty staying on topic. But is oriented to family and answers questions appropriately Psychiatric: Cooperative, appropriate mood & affect. Course 2 Vital Signs: Vital signs: Vital Signs Temperature 100.8 F H 04/04/24 17:20 Pulse Rate 75 04/04/24 20:39 Respiratory Rate 17 04/04/24 17:20 Blood Pressure 92/57 04/04/24 20:39 Pulse Oximetry 98 04/04/24 20:39 Oxygen Delivery Me thod Room Air 04/04/24 20:39 MDM - Weakness Medical Decision Making Medical decision making: Differential diagnosis for patient presenting with generalized weakness including but not limited to and based on the above HPI, review of systems and physical exam: Sepsis. Dehydration. Renal failure. Electrolyte abnormalities. Anemia. Congestive heart failure. Hypotension. Coronary syndrome. Hepatitis. Cirrhosis. Infections such as pneumonia, urinary tract infection, [place] illness, Cellulitis, Viral infections including influenza and Covid-19. Workup: labwork and lab/exam driven imaging ordered to evaluate, rule in and rule out above pathologies. EKG: Time 1746. Rate 95. Normal sinus rhythm, No ST-T changes, PVCs, normal MO & QRS intervals, This was reviewed and interpreted by myself the ER physician at 1750. Repeat EKG: Time 1907. Rate 76. Normal sinus rhythm, No ST-T changes, PVCs, normal MO & QRS intervals, This was reviewed and interpreted by myself the ER physician at 1910. No significant changes from EKG done previously today in the emergency room. Chest x-ray: Stable cardiomegaly. No acute process. No infiltrate. No pneumothorax. This was reviewed and interpreted by myself the emergency room physician. I also reviewed the radiology report. Lab Review: Laboratory results were reviewed and interpreted by myself the emergency room physician. No leukocytosis. No anemia. BUN and creatinine are above his baseline at 26 and 2.1. He is usually in the mid 1 region. Urinalysis does show nitrite positive and 1+ bacteria but only a few whites in the urine. I reviewed the patient's medical record. Reexamination: Patient remains fairly stable. Blood pressure has improved slightly into the mid 90s systolic. No focal motor deficits at this time. Still with some difficulty keeping on task when he is having conversation. But still alert and oriented. Consultation: I spoke with Dr. Vila who agrees to admission after the patient has a noncontrast chest abdomen pelvis CT. I am placing orders to the ICU and patient will be transferred after results are posted and approved Assessment and plan: Sepsis Hypotension Hypoxemia Acute on chronic renal failure Edema ?Patient still requiring 3 L nasal cannula. I do not see any signs of pneumonia on his x-ray. CT is pending. -2L normal saline bolus. Holding on further fluids as the patient has extensive edema and increased proBNP. I have concern for him going into heart failure. His blood pressure has a mean over 60 at this time. -Broad-spectrum antibiotics were administered. Zyvox and meropenem. Questionable source of urine. Not an overt terrible infection but it is nitrate positive and bacteria positive. -Sepsis quality measures. -Lactic acid with a reflex was ordered. -Blood cultures were ordered. -I discussed the patient with the hospitalist on-call who is admitting the patient. - Discussed findings and plan with patient. Answered any questions. - All laboratory values were reviewed and interpreted personally by myself, the ER physician - All imaging was reviewed and interpreted personally by myself, the ER physician. - Evaluation and treatment of this problem were appropriate in the emergency setting Critical care -I spent a total of >35 minutes of critical care time managing the patient, independent of any other practitioner. -The time involved in the performance of separately reportable procedures was not counted towards critical care time. Lab Data 04/04/24 17:39 04/04/24 17:39 Radiology Impressions Chest X-Ray 04/04/24 17:32 IMPRESSION: 1. No evidence of acute cardiopulmonary disease. Chronic findings as above. Laboratory Results WBC 8.16 10^3/uL (3.29-11.43) 04/04/24 17:39 RBC 4.17 10^6/uL (3.85-5.65) 04/04/24 17:39 Hgb 13.00 g/dL (11.27-16.99) 04/04/24 17:39 Hct 39.7 % (37-53) 04/04/24 17:39 MCV 95.2 fl (82-101) 04/04/24 17:39 MCH 31.2 pg (27-33) 04/04/24 17:39 MCHC 32.7 g/dL (30-55) 04/04/24 17:39 RDW 14.4 % (12.1-15.1) 04/04/24 17:39 Plt Count 158 10^3/cmm (157-399) 04/04/24 17:39 MPV 9.5 fL (7.4-10.4) 04/04/24 17:39 Neut % (Auto) 61.8 % 04/04/24 17:39 Lymph % (Auto) 23.0 % 04/04/24 17:39 [place] % (Auto) 12.3 % 04/04/24 17:39 Eos % (Auto) 2.3 % 04/04/24 17:39 Baso % (Auto) 0.4 % 04/04/24 17:39 Neut # (Auto) 5.04 10^3/uL (1.8-7.7) 04/04/24 17:39 Lymph # (Auto) 1.9 10^3/uL (0.8-4.8) 04/04/24 17:39 [place] # (Auto) 1.0 10^3/uL (0.2-0.9) H 04/04/24 17:39 Eos # (Auto) 0.2 10^3/uL (0.0-0.8) 04/04/24 17:39 Baso # (Auto) 0.0 10^3/uL (0.0-0.1) 04/04/24 17:39 Nucleated RBC % (auto) 0 % 04/04/24 17: Nucleated RBCs # 0.0 /100WBC 04/04/24 17:39 Specimen Type Arterial 04/04/24 17:42 Sample Site Radial, right 04/04/24 17:42 ABG pH 7.42 (7.35-7.45) 04/04/24 17:42 ABG pCO2 44.3 mmHg (35-45) 04/04/24 17:42 ABG pO2 79.0 mmHg (80.0-100.0) L 04/04/24 17:42 ABG HCO3 28.4 mmol/L (22-26) H 04/04/24 17:42 ABG O2 Saturation 96.5 04/04/24 17:42 ABG Base Excess 3.3 mmol/L (-2.0-2.0) H 04/04/24 17:42 [place] Test Pos 04/04/24 17:42 A-a O2 Gradient 1.9 mmHg (5-10) L 04/04/24 17:42 Hematocrit 39.4 % (42-52) L 04/04/24 17:42 Hgb O2 Saturation 94.0 % (95-100) L 04/04/24 17:42 Carboxyhemoglobin 1.8 %THgb (0.4-20.1) 04/04/24 17:42 Methemoglobin 0.9 % (0.4-1.5) 04/04/24 17:42 Total Hemoglobin 12.9 g/dL (14-18) L 04/04/24 17:42 Sodium 135.0 mmol/L (131-143) 04/04/24 17:42 Potassium 4.5 mmol/L (3.5-5.0) 04/04/24 17:42 Glucose 109.0 mg/dL (70-115) 04/04/24 17:42 Ionized Calcium 1.1 mmol/L (1.1-1.4) 04/04/24 17:42 O2 Delivery Device Nc 04/04/24 17:42 O2 Liters/Min 3.0 % 04/04/24 17:42 Property Technician ID [place] 04/04/24 17:42 Sodium 133 mmol/L (136-145) L 04/04/24 17:39 Potassium 4.7 mmol/L (3.5-5.1) 04/04/24 17:39 Chloride 96 mmol/L (98-107) L 04/04/24 17:39 Carbon Dioxide 28 mmol/L (22-29) 04/04/24 17:39 Anion Gap 13.7 (5-19) 04/04/24 17:39 BUN 26 mg/dL (8-23) H 04/04/24 17:39 Creatinine 2.1 mg/dL (0.7-1.2) H 04/04/24 17:39 GFR Calculation Not Reportable 04/04/24 17:39 Glucose 109 mg/dL (65-115) 04/04/24 17:39 Calculated Osmolality 281 mOsm/kg (285-295) L 04/04/24 17:39 Lactic Acid 1.1 mmol/L (0.5-2.2) 04/04/24 17:39 Calcium 8.7 mg/dL (8.5-10.5) 04/04/24 17:39 Total Bilirubin 1.5 mg/dL (0.15-1.2) H 04/04/24 17:39 AST 16 U/L (0-40) 04/04/24 17:39 ALT 12 U/L (0-41) 04/04/24 17:39 Alkaline Phosphatase 49 U/L (40-130) 04/04/24 17:39 Troponin T Baseline 74 ng/L (0-15) H 04/04/24 17:39 Troponin T 120 Minute 68.68 ng/L (0-15) H 04/04/24 19:14 Delta Troponin T -5.32 ABS# (0-10) L 04/04/24 19:14 NT-Pro-B Natriuret Pep 3260 pg/mL (0-450) H 04/04/24 17:39 Total Protein 6.1 g/dL (6.6-8.7) L 04/04/24 17:39 Albumin 3.8 g/dL (3.5-5.2) 04/04/24 17:39 Globulin 2.3 g/dL (1.3-4.6) 04/04/24 17:39 Urine Color [place] (Yellow) A 04/04/24 19: Urine Appearance Cloudy (CLEAR) A 04/04/24 19: Urine pH 5.0 (5-7) 04/04/24 19: Ur Specific [place] 1.022 (1.005-1.030) 04/04/24 19: Urine Protein 1+ (Negative) A 04/04/24 19: Urine Glucose (UA) Negative (Normal) 04/04/24 19: Urine Ketones 1+ (Negative) H 04/04/24 19: Urine Blood Negative (Negative) 04/04/24 19: Urine Nitrate Positive (Negative) A 04/04/24 19: Urine Bilirubin 2+ (Negative) H 04/04/24 19: Urine Urobilinogen 2.0 mg/dL (Negative) H 04/04/24 19:31 Ur Leukocyte Esterase 1+ (Negative) A 04/04/24 19:31 Urine RBC 3-5 /hpf (0-2) 04/04/24 19:31 Urine WBC 0-5 /hpf (0-5) 04/04/24 19:31 Ur Squamous Epith Cells 6-10 /hpf (0-5) 04/04/24 19:31 Amorphous Sediment Not Reportable 04/04/24 19: Urine Bacteria 1+ /hpf (NONE) H 04/04/24 19:31 Hyaline Casts 112.95 /lpf 04/04/24 19:31 Adenovirus (PCR) Not detected (NOT DETECT) 04/04/24 18:08 C. pneumoniae DNA (PCR) Not detected (NOT DETECT) 04/04/24 18:08 Coronavirus 229E (PCR) Not detected (NOT DETECT) 04/04/24 18:08 Human Metapneumovir PCR Not detected (NOT DETECT) 04/04/24 18:08 Influenza A (H1) PCR Not detected (NOT DETECT) 04/04/24 18:08 Influ A (H1/09) PCR Not detected (NOT DETECT) 04/04/24 18:08 Influenza A (H3) PCR Not detected (NOT DETECT) 04/04/24 18:08 Influenza Type A (PCR) Not detected (NOT DETECT) 04/04/24 18:08 Influenza Type B (PCR) Not detected (NOT DETECT) 04/04/24 18:08 M. pneumoniae (PCR) Not detected (NOT DETECT) 04/04/24 18:08 Parainfluenza 1 (PCR) Not detected (NOT DETECT) 04/04/24 18:08 Parainfluenza 2 (PCR) Not detected (NOT DETECT) 04/04/24 18:08 Parainfluenza 3 (PCR) Not detected (NOT DETECT) 04/04/24 18:08 Parainfluenza 4 (PCR) Not detected (NOT DETECT) 04/04/24 18:08 RSV Type A (PCR) Not detected (NOT DETECT) 04/04/24 18:08 RSV Type B (PCR) Not detected (NOT DETECT) 04/04/24 18:08 Entero/Rhino (PCR) Not detected (NOT DETECT) 04/04/24 18:08 SARS-CoV-2 (PCR) Not detected (NOT DETECT) 04/04/24 18:08 All radiology interpretation(s) finalized by discharge Discharge Plan Discharge Patient Disposition: Admitted As Inpatient Clinical Impression: Sepsis, Acute hypotension, Acute on chronic renal failure, Hypoxemia, Edema Condition: Stable Coding Level of Care Code ED Solution Make Up Operator for Analisa Fwd Related Data Home Medications Medication Instructions Recorded Confirmed allopurinol 100 mg tablet mg PO 08/10/23 04/01/24 carvedilol 25 mg tablet mg PO 08/10/23 04/01/24 albuterol sulfate 90 mcg/actuation inhalation 10/13/23 04/01/24 aerosol inhaler ciclopirox 0.77 % topical cream applic topical 10/13/23 04/01/24 lisinopril 20 tab PO 12/11/23 04/01/24 mg-hydrochlorothiazide 25 mg tablet atorvastatin 20 mg tablet mg PO 01/08/24 04/01/24 Previous Rx's Medication Instructions Recorded levothyroxine 100 mcg tablet 100 mcg PO DAILY #30 tabs 04/01/24 Allergies Allergy/AdvReac Type Severity Reaction Status Date / Time No Known Allergies Allergy Verified 04/01/24 09:27
[2024-04-04 17:53] LABS: ABG PCO2 44.3 mmHg (35-45); ABG PH Result 7.42 (7.35-7.45); Alveolar-Arterial Oxygen Gradi 1.9 mmHg (5-10); Arterial Blood Gas Hematocrit 39.4 % (42-52); Base Excess ABG 3.3 mmol/L (-2.0-2.0); Blood Gas Allen Test Pos; Blood Gas Operator Identificat WALCI; Blood Gas Sample Site Radial, right; Blood Gas Sample Type Arterial; Carboxyhemoglobin 1.8 %THgb (0.4-20.1); HCO3 ABG 28.4 mmol/L (22-26); Ionized Calcium Level - ABG 1.1 mmol/L (1.1-1.4); Methemoglobin 0.9 % (0.4-1.5); Oxygen Device NC; Oxygen Saturation ABG 96.5; Potassium Level - ABG 4.5 mmol/L (3.5-5.0); Total Hemoglobin 12.9 g/dL (14-18)
[2024-04-04] MEDS: acetaminophen 325 mg Tablet 650 MG PO (18:04)
[2024-04-04] MEDS: sodium chloride 0.9% 1,000 ML 999 ML IV ×2 (18:04→19:39)
[2024-04-04 18:07] LABS: Troponin(5th) Baseline 74 ng/L (0-15)
[2024-04-04 18:10] LABS: Lactic Sepsis W/Reflex 1.1 mmol/L (0.5-2.2)
[2024-04-04 18:23] LABS: Alanine Aminotransferase 12 U/L (0-41); Albumin Level 3.8 g/dL (3.5-5.2); Alkaline Phosphatase 49 U/L (40-130); Anion Gap 13.7 (5-19); Aspartate Amino Transferase 16 U/L (0-40); Blood Urea Nitrogen 26 mg/dL (8-23); Calcium 8.7 mg/dL (8.5-10.5); Carbon Dioxide 28 mmol/L (22-29); Chloride 96 mmol/L (98-107); Creatinine Clr Calc Pharmacy 33.6279; Globulin 2.3 g/dL (1.3-4.6); Glucose 109 mg/dL (65-115); NT Pro B Type Natriuretic Pept 3260 pg/mL (0-450); Osmolality Calculated 281 mOsm/kg (285-295); Potassium 4.7 mmol/L (3.5-5.1); Sodium 133 mmol/L (136-145); Total Bilirubin 1.5 mg/dL (0.15-1.2); Total Protein 6.1 g/dL (6.6-8.7)
--- NOTE | 2024-04-04 19:39 | ECG_ITS ---
[employer] Test Date: 2024-04-04 Pat Name: Kush Dodd Department: Room: Gender: Male Study Assistant: : 1945 Requested By: Diane Toussaint Order Number: [id number] Pressley MD: Francy Benitez M.D. Measurements Intervals [place] Rate: 76 P: 77 [place]: 191 QRS: 39 QRSD: 108 T: 81 QT: 386 QTc: 436 Interpretive Statements SINUS RHYTHM WITH OCCASIONAL SUPRAVENTRICULAR PREMATURE COMPLEXES POSSIBLE ANTERIOR MYOCARDIAL INFARCTION , OF INDETERMINATE AGE [30 ms Q WAVE IN V3/V4, OR R < 0.2 mV IN V4] Compared to ECG 04/04/2024 17:46:13 Ventricular premature complex(es) no longer present Myocardial infarct finding still present Electronically Signed On 04-05-2024 17:18:45 PMO ANALYST by Francy Benitez M.D. [email or web address]
[2024-04-04 19:52] LABS: Bilirubin Urine 2+ (Negative); Blood Urine Negative (Negative); Glucose Urine UA Negative (Normal); Ketones Urine 1+ (Negative); Leukocyte Esterase Urine 1+ (Negative); Nitrate Urine Positive (Negative); Protein Urine 1+ (Negative); Specific Gravity, Urine 1.022 (1.005-1.030); Urine Appearance Cloudy (CLEAR)
[2024-04-04 19:55] LABS: Add Urine Microscopic? YES; Hyaline Casts Urine 112.95 /lpf; WBC Urine 0-5 /hpf (0-5)
[2024-04-04 20:03] LABS: Troponin 5 2HR 68.68 ng/L (0-15)
[2024-04-04 20:04] LABS: Troponin 5 2HR Delta -5.32 ABS# (0-10)
[2024-04-04 20:13] LABS: Bacteria Urine 1+ /hpf; UA Slide Review UA Slide Review Perf; Urine Color Orange (Yellow)
[2024-04-04 20:15] LABS: Add Urine Culture? Yes
--- NOTE | 2024-04-04 20:28 | CTR_ITS ---
PROCEDURE INFORMATION: Exam: CT Chest Without Contrast; Diagnostic Exam date and time: 04/04/2024 9:00 PM Age: 78 years old Clinical indication: Abnormal findings; Abnormal lab test; Abnormal kidney function lab tests and other: Elevated bilirubin; Abnormal diagnostic tests; Patient HX: Fever with renal failure. Elevated troponins and bilirubin. History of bladder cancer with malignant melanoma. TECHNIQUE: Imaging protocol: Diagnostic computed tomography of the chest without contrast. Radiation optimization: All CT scans at this facility use at least one of these dose optimization techniques: automated exposure control; mA and/or kV adjustment per patient size (includes targeted exams where dose is matched to clinical indication); or iterative reconstruction. COMPARISON: PT PET WB melanoma INITIAL [id number] 02/06/2024 3:55 PM RADIATION DOSE METRICS: Total DLP (mGy-cm): 1018.63 FINDINGS: Lungs: The tracheobronchial airways are clear. Pleural spaces: No pneumothorax or pleural effusion. Minimal dependent consolidation in the lung bases likely atelectasis although early infiltrate cannot be excluded. Heart: Mild cardiomegaly. No pericardial effusion.Coronary artery calcification is present. Lymph nodes: Small scattered mediastinal and hilar lymph nodes without pathologic enlargement. There are granulomatous calcifications in the mediastinum and right hilum. Vasculature: Mild atherosclerosis in the thoracic aorta without aneurysm. Bones/joints: [id number] osteoarthritis of the left glenohumeral joint partially imaged.Moderate degenerative changes of the visualized spine. No fracture or aggressive osseous lesion is seen. Soft tissues: The visualized superficial soft tissues have a normal appearance. PROCEDURE INFORMATION: Exam: CT Abdomen And Pelvis Without Contrast Exam date and time: 04/04/2024 9:00 PM Age: 78 years old Clinical indication: Abnormal findings; Abnormal lab test; Abnormal kidney function lab tests and other: Elevated bilirubin; Abnormal diagnostic tests; Patient HX: Fever with renal failure. Elevated troponins and bilirubin. History of bladder cancer with malignant melanoma. TECHNIQUE: Imaging protocol: Computed tomography of the abdomen and pelvis without contrast. Radiation optimization: All CT scans at this facility use at least one of these dose optimization techniques: automated exposure control; mA and/or kV adjustment per patient size (includes targeted exams where dose is matched to clinical indication); or iterative reconstruction. COMPARISON: PT PET WB melanoma INITIAL [id number] 02/06/2024 3:55 PM RADIATION DOSE METRICS: Total DLP (mGy-cm): 1018.63 FINDINGS: Liver: Normal appearance of the liver. Gallbladder and biliary ducts: Normal appearance of the gallbladder. No radiopaque cholelithiasis. Pancreas: Normal appearance of the pancreas. No ductal dilation. Spleen: Normal appearance of the spleen. Adrenal glands: Normal appearance of both adrenal glands. Kidneys and ureters: Normal appearance of both kidneys. No evidence of nephrolithiasis or hydronephrosis. No renal mass or cyst is seen. Normal appearance of both ureters without hydroureter or ureteral stone. Stomach and bowel: Normal appearance of the stomach. Normal appearance of the small bowel without luminal dilation suggested. There is wall thickening diverticular disease and adjacent inflammatory stranding associated with the sigmoid colon suggesting acute diverticulitis. No evidence of gross perforation. Mild colonic stool burden. Appendix: The appendix is identified and normal in appearance. No evidence of appendicitis. Intraperitoneal space: Unremarkable. No free air. No significant fluid collection. Vasculature: There is moderate calcific atherosclerotic disease of the abdominal aorta. No evidence of an aneurysm. Lymph nodes: Unremarkable. No enlarged lymph nodes. Urinary bladder: Normal appearance of the urinary bladder. No intravesicular stone. Reproductive: Prostate is enlarged measuring approximately 4.9 cm. Bones/joints: Degenerative changes of both hips. Mild to moderate spinal degenerative changes. No fracture or aggressive osseous lesion. Soft tissues: The visualized superficial soft tissues have a normal appearance. CT[facility] [id number] IMPRESSION: 1. Minimal consolidation in the lung bases likely atelectasis although developing infiltrate cannot be excluded. 2. Other chronic findings as above. IMPRESSION: 1. Diverticular disease with wall thickening and adjacent inflammation associated with sigmoid colon suggesting acute diverticulitis. No evidence of gross perforation. 2.Other incidental and/or chronic findings as detailed above.
[2024-04-04 20:35] LABS: Adenovirus Not Detected (NOT DETECT); Chlamydia Pneumoniae Not Detected (NOT DETECT); Coronavirus 229E,HKU1,NL63,OC4 Not Detected (NOT DETECT); Human Metapneumovirus Not Detected (NOT DETECT); Human Rhinovirus/Enterovirus Not Detected (NOT DETECT); Influenza A Not Detected (NOT DETECT); Influenza A H1 Not Detected (NOT DETECT); Influenza A H1-2009 Not Detected (NOT DETECT); Influenza A H3 Not Detected (NOT DETECT); Influenza B Not Detected (NOT DETECT); Mycoplasma Pneumoniae Not Detected (NOT DETECT); Parainfluenza Virus Type 1 Not Detected (NOT DETECT); Parainfluenza Virus Type 2 Not Detected (NOT DETECT); Parainfluenza Virus Type 3 Not Detected (NOT DETECT); Parainfluenza Virus Type 4 Not Detected (NOT DETECT); Respiratory Syncytial Virus A Not Detected (NOT DETECT); Respiratory Syncytial Virus B Not Detected (NOT DETECT); SARS-COV-2 Not Detected (NOT DETECT)
--- NOTE | 2024-04-04 20:39 | P.HP_ITS ---
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 He was not able to get up from the toilet. He has not noticed any fever, nausea, vomiting or diarrhea. Last bowel movement was yesterday. No abdominal pain. Patient is saying that he had bouts of sneezing yesterday otherwise no significant sputum production or chest pain. 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 He does not know his EF. Patient is endorsing significant swelling of his legs bilaterally. In the ER he was diagnosed with sepsis received septic bolus however he does have right-sided heart failure features with high BNP abnormal bilirubin, he received linezolid and meropenem in the ER I requested CT chest abdomen pelvis to look for the source for his fever he does have concern related to pneumonia and diverticulitis His blood pressure has remained low, patient is stating that his blood pressure always stay low and he is not concerned about his blood pressure which is 90/50 mmHg In his home meds I do appreciate Coreg, lisinopril hydrochlorothiazide Review of Systems 2 Const: Reports: fever(s) and chills Eyes: Denies: change in vision ENMT: Denies: throat pain Card: Reports: swelling of feet/ankles; Denies: chest pain Resp: Reports: dyspnea GI: Denies: abdominal pain Neuro: Reports: weakness in extremities and difficulty walking Medications/Allergies Home Medications Medication Instructions Recorded Confirmed Last Taken Type allopurinol 100 mg tablet mg PO 08/10/23 04/01/24 Unknown History carvedilol 25 mg tablet mg PO 08/10/23 04/01/24 Unknown History albuterol sulfate 90 mcg/actuation inhalation 10/13/23 04/01/24 Unknown History aerosol inhaler ciclopirox 0.77 % topical cream applic topical 10/13/23 04/01/24 Unknown History lisinopril 20 tab PO 12/11/23 04/01/24 Unknown History mg-hydrochlorothiazide 25 mg tablet atorvastatin 20 mg tablet mg PO 01/08/24 04/01/24 Unknown History levothyroxine 100 mcg tablet 100 mcg PO DAILY #30 tabs 04/01/24 04/01/24 Unknown Rx Allergies Allergy/AdvReac Type Severity Reaction Status Date / Time No Known Allergies Allergy Verified 04/01/24 09:27 PFSH Acute 2 PFSH: Medical History Skin cancer, basal cell Bladder cancer COPD (chronic obstructive pulmonary disease) Hypertension Malignant melanoma of back Surgical History History of right knee surgery History of hernia repair Family History Father Melanoma Mother Heart disease Sister Diabetes Social History Smoking and tobacco/nicotine status: former use of tobacco/nicotine Additional social history: He quit smoking 40 to 50 years ago. Vitals/I&O/Wt Last Vital Signs Temp 100.8 F H 04/04/24 17:20 Pulse 91 04/04/24 19:14 Resp 17 04/04/24 17:20 BP 88/56 04/04/24 19:14 Pulse Ox 97 04/04/24 19:14 O2 Del Method Room Air 04/04/24 19:14 04/04/24 04/04/24 04/04/24 06:59 14:59 22:59 Intake Total 1000 / 1000 Balance 1000 / 1000 Weight last 48 hrs Weight 98.883 kg Physical Exam 2 Narrative: Pleasant cooperative male Complaining of muscle pain, joint pain Clinical signs of right-sided heart failure Mild JVD, distended abdomen Lower extremity edema Morbidly obese S1, S2 Blood pressure 90/50 Awake and alert AO x 4 GCS 15 Family at the bedside Nontender abdomen Did not appreciate murmur No skin mottling no sign of confusion Data 04/04/24 17:39 04/04/24 17:39 Micro: Microbiology 04/04/24 18:41 Blood Culture - Preliminary Blood SPECIMEN COLLECTED 04/04/24 18:39 Blood Culture - Preliminary Blood SPECIMEN COLLECTED A&P Assessment and plan (1) Acute hypotension: (2) Acute on chronic renal failure: (3) Malignant melanoma of back: (4) Sepsis: (5) Edema: (6) Right-sided heart failure: (7) Sepsis: (8) Diverticulitis: (9) Pneumonia: Plan Sepsis Monitor for development of septic shock With underlying right-sided heart failure Patient has received septic bolus in the ER He had received antibiotics Would hold off on further IV fluids Will use ceftriaxone, linezolid and metronidazole for coverage of pneumonia antibiotic let us Request sputum, urine, blood culture Right-sided heart failure Chest x-ray does not show pulm edema No previous history of thromboembolic disease Follow-up for D-dimer, avoided CT chest because of creatinine Request echo Judicious use of IV fluids Patient seems to have diagnosis of CHF does not know his EF He 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 up with 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 in [facility] Dr Garsia Will request records Patient does not endorse history of coronary disease Acute hypoxia currently requiring 3 L Does not use oxygen at home No official diagnosis of sleep apnea Skin cancer/melanoma with stage IV bone mets On Opdivo Suffers with joint pain and stiffness after infusion Acute on chronic kidney disease related to cardiorenal syndrome I do anticipate improvement with improvement in blood pressure He will need gentle diuresis considering low blood pressure Patient is full code Cardiac diet Will request D-dimer to rule out thromboembolic disease Bilateral lower extremity venous Doppler Attestations 2 Medical Necessity Statement*: More than 2 midnights anticipated Diagnoses Acute hypotension I95.9 Acute on chronic renal failure N17.9; N18.9 Malignant melanoma of back C43.59 Sepsis A41.9 Edema R60.9 Right-sided heart failure I50.810 Diverticulitis K57.92 Pneumonia J18.9
[2024-04-04] MEDS: meropenem 500 mg SDV IVP (20:53)
[2024-04-04] MEDS: linezolid premix 600 MG/300 ML PREMIX 300 MG IV (20:53)
[2024-04-04] MEDS: heparin 5,000 unit/mL INJ 1 mL 5000 UNIT SUBCUT (21:29)
[2024-04-04 21:34] LABS: Uric Acid 5.6 mg/dL (3.4-7.0)
[2024-04-04 21:42] LABS: Procalcitonin 0.29 ng/mL (0-0.5)
[2024-04-04 23:06] LABS: D Dimer 1.21 ug/mLFEU (0-0.59)
--- NOTE | 2024-04-04 23:21 | PC.NURSE ---
report called to Ronald in ICU, nurse report she will call when they are ready for pt to be brought down.
[2024-04-04 23:57] LABS: Troponin 5 6HR 62.18 ng/L (0-15)
[2024-04-05 00:01] LABS: Troponin 5 6HR Delta -11.82 ng/L (0-12)
[2024-04-05 00:28] VITALS: BP 99/50; PULSE 77; RESP 16; O2SAT 97
[2024-04-05 00:30] VITALS: BP 103/58; PULSE 77; RESP 17; O2SAT 97
[2024-04-05 01:20] VITALS: BP 104/52; PULSE 79; RESP 16; O2SAT 95
[2024-04-05 01:32] VITALS: BMI 31.1
[2024-04-05] MEDS: metroNIDAZOLE IV 500 MG/100 ML PREMIX 100 MG IV ×3 (01:57→17:04)
[2024-04-05 04:17] LABS: Basophils % 0.4 %; Eosinophils # 0.2 10^3/uL (0.0-0.8); Eosinophils % 3.1 %; Lymphocytes # 1.2 10^3/uL (0.8-4.8); Lymphocytes % 21.7 %; Mean Corpuscular HGB Conc 31.7 g/dL (30-55); Mean Corpuscular Volume 97.8 fl (82-101); Monocytes # 0.7 10^3/uL (0.2-0.9); Neutrophils # 3.35 10^3/uL (1.8-7.7); Neutrophils % 61.1 %; Nucleated Red Blood Cells % 0 %; Platelet Count 146 10^3/cmm (157-399); Red Blood Count 3.68 10^6/uL (3.85-5.65); Red Cell Distribution Width 14.4 % (12.1-15.1); White Blood Count 5.48 10^3/uL (3.29-11.43)
[2024-04-05 04:36] LABS: Anion Gap 15.2 (5-19); Blood Urea Nitrogen 27 mg/dL (8-23); C Reactive Protein 98.3 mg/L (0.0-4.9); Calcium 7.8 mg/dL (8.5-10.5); Carbon Dioxide 27 mmol/L (22-29); Chloride 98 mmol/L (98-107); Creatinine Clr Calc Pharmacy 30.6473; Glucose 131 mg/dL (65-115); Magnesium 1.5 mg/dL (1.7-2.3); Osmolality Calculated 289 mOsm/kg (285-295); Potassium 4.2 mmol/L (3.5-5.1); Sodium 136 mmol/L (136-145)
[2024-04-05 04:37] LABS: Lactic Sepsis W/Reflex 0.7 mmol/L (0.5-2.2)
[2024-04-05 04:43] LABS: Thyroid Stimulating Hormone 17.93 uIU/mL (0.27-4.20)
[2024-04-05] MEDS: levothyroxine 100 mcg Tablet PO (06:16)
[2024-04-05] MEDS: magnesium sulfate premix 1 GM/100 ML PIGGYBACK IV (06:18)
--- NOTE | 2024-04-05 07:18 | PC.PHAR ---
pharmacy has the dose levothyroxine 25mcg on file for this patient. last filled 03/29/24. removed 100mcg dose, as its not on external med list
--- NOTE | 2024-04-05 07:48 | P.PN_ITS ---
Subjective 2 Subjective: Feels better. History and physical reviewed. Denies any abdominal pain, but has some pain to palpation left lower quadrant. We reviewed his recent course, recent treatment with Opdivo log and recent steroid treatments after concern of weakness and freezing up following the medication. Denies any nausea currently. Feels like his strength is better. Medications: Reviewed: Yes Vitals/I&O/Wt Last Vital Signs Temp 97.7 F 04/04/24 21:39 Pulse 79 04/05/24 01:20 Resp 16 04/05/24 01:20 BP 104/52 04/05/24 01:20 Pulse Ox 95 04/05/24 01:20 O2 Del Method Nasal Cannula 04/05/24 01:32 O2 Flow Rate 3 04/04/24 23:12 04/04/24 04/05/24 04/05/24 22:59 06:59 14:59 Intake Total 2300 / 2300 160 / 2460 100 / 100 Output Total 300 / 300 Balance 2300 / 2300 -140 / 2160 100 / 100 Weight last 48 hrs Weight 98.43 kg Weight 98.5 kg Weight 98.883 kg Physical Exam 2 Narrative: General exam, alert and oriented. Blood pressure improved Neck is supple no lymphadenopathy thyromegaly Cardiovascular regular rate and rhythm, no murmur Lungs clear Abdomen soft. Tenderness left lower quadrant. Positive bowel sounds exam is deferred Extremities 1+ edema bilaterally, 2 ankles, pitting Data 04/05/24 03:47 04/05/24 03:47 Micro: Microbiology 04/04/24 18:41 Blood Culture - Preliminary Blood SPECIMEN COLLECTED 04/04/24 18:39 Blood Culture - Preliminary Blood SPECIMEN COLLECTED A&P Assessment and plan (1) Diverticulitis: Patient presents with evidence of diverticulitis per CT. Pneumonia less likely. Placed on Rocephin, Flagyl, linezolid. Consider discontinue linezolid tomorrow if no evidence of pneumonia, patient continues to improve Full liquid diet Monitor clinically for improvement Note the checkpoint inhibitor can also Colts colitis. At this point since improvement is occurring, will not redose steroids. He has had 2 courses recently for concern of complication of medication. (2) Acute hypotension: Resolved. Continue to monitor blood pressure (3) Acute kidney injury: Patient with significant acute kidney injury Hold his lisinopril hydrochlorothiazide IV fluids at 50 cc an hour, monitoring for fluid overload symptoms BMP tomorrow Bladder scan CT demonstrated no evidence of obstruction Avoid renal toxic medication Check CK secondary to recent episodes of significant muscle pain and weakness, renal failure Hold Lasix (4) Sepsis: Resolving (5) Malignant melanoma of back: Followed by oncology. Recently on checkpoint inhibitor with concern of complication (6) Edema: Significant edema Venous duplex negative Await echocardiogram Plan Hypomagnesemia, supplement Multiple other medical problems as outlined by past medical history May transfer out of ICU Full code Heparin for DVT prophylaxis, SCDs Attestations 2 Medical Necessity Statement*: Needs continued hospital stay for treatment of acute diverticulitis with IV antibiotics, close follow-up of renal function that is not yet improved. Diagnoses Diverticulitis K57.92 Acute hypotension I95.9 Acute kidney injury N17.9 Sepsis A41.9 Malignant melanoma of back C43.59 Edema R60.9 Time Spent (min) 35
[2024-04-05 08:29] LABS: Creatine Phosphokinase 37 U/L (39-308)
[2024-04-05] MEDS: heparin 5,000 unit/mL INJ 1 mL 5000 UNIT SUBCUT ×2 (09:20→20:35)
[2024-04-05] MEDS: cefTRIAXone 1,000 mg SDV 1000 MG IVP (09:20)
[2024-04-05] MEDS: sodium chloride 0.9% 1,000 ML 50 ML IV (09:20)
[2024-04-05] MEDS: sennosides-docusate Tablet 1 TAB PO (09:21)
[2024-04-05] MEDS: linezolid premix 600 MG/300 ML PREMIX 300 MG IV ×2 (09:21→20:35)
[2024-04-05] MEDS: allopurinol 100 mg Tablet PO (09:21)
[2024-04-05 09:52] VITALS: PULSE 92; RESP 17; O2SAT 97
--- NOTE | 2024-04-05 23:57 | USCV_ITS ---
Kush Dodd Age: 78 Gender: M : 1945 Exam Date: 04/05/2024 07:02 Ordering Phys: Cat Vila MD Technologist: MARQUISE Exam Location: [facility] [place] Indication: Swelling HISTORY: Lower extremity swelling. PROCEDURES: Venous duplex imaging was performed in bilateral lower extremities. The following venous structures were evaluated: common femoral vein, profunda vein, proximal portion of the greater saphenous vein, superficial femoral vein, and the popliteal vein. In addition, the posterior tibial and peroneal trunk were evaluated. Serial compression, augmentation maneuvers, and spectral Doppler flow evaluation were performed. FINDINGS: Normal 2-D Doppler and augmentation and compressibility throughout the lower extremity venous structures. Additional imaging through the proximal calf veins also reveals no thrombus. Limited evaluation of the greater saphenous vein is patent with no thrombus. CONCLUSIONS No DVT bilateral lower extremities. Dr. Rosalva Lr DO (Electronically Signed) Final Date: 05 April 2024 07:50 S
--- NOTE | 2024-04-05 23:57 | USCV_ITS ---
Kush Dodd Age: 78 Gender: M : 1945 Exam Date: 04/05/2024 12:06 Ordering Phys: Cat Vila MD Technologist: CT Exam Location: [facility] [place] Indication: chf BP: 99 / 67 HR: 82 Rhythm: Sinus Technical Quality: Adequate MEASUREMENTS (Male / Female) Normal Values 2D ECHO LVOT Diameter 2.1 cm LV Ejection Fraction MOD 4C 42.6 % LV Ejection Fraction MOD 2C 21.2 % LV Ejection Fraction 2C AL 22.6 % LA Diameter 3.6 cm RA Systolic Volume 4C AL 97.7 ml RA Systolic Volume 4C MOD 95.1 ml LA Sys Volume AL 84.0 cm cubed LA Sys Volume Index AL 37.6 cm cubed/m squared Aorta at Sinotubular Diameter 2.3 cm IVC Diameter 2.1 cm M-MODE LA Ao Ratio MM 1.5 AV Cusp Separation MM 1.8 cm DOPPLER AV Peak Velocity 164.0 cm/s LVOT Peak Velocity 87.0 cm/s AV Area Cont Eq vti 2.1 cm squared AV Area Cont Eq pk 1.8 cm squared MV Peak Velocity 102.0 cm/s MV Area PHT 4.1 cm squared Mitral E to A Ratio 0.6 TR Peak Velocity 191.5 cm/s TR Peak Gradient 14.7 mmHg TR Mean Velocity 126.0 cm/s TR Mean Gradient 7.9 mmHg TR Velocity Time Integral 44.2 cm TV Peak E Velocity 69.0 cm/s PV Peak Velocity 117.5 cm/s FINDINGS Left Ventricle Mildly increased left ventricular cavity size. Sevrely decreased left ventricular systolic function. Global left ventricular hypokinesis. Left ventricular ejection fraction is estimated at 35 %. Grade I/IV diastolic dysfunction (abnormal relaxation filling pattern), normal to mildly elevated filling pressures. Right Ventricle The right ventricle is normal in size and function. Right Atrium The right atrium is normal in size. Left Atrium The left atrium is normal in size. Mitral Valve Structurally normal mitral valve without significant stenosis or prolapse. There is mild mitral regurgitation. Aortic Valve Mild aortic valve calcification. No aortic valve stenosis. Trace to mild aortic valve regurgitation. Tricuspid Valve Structurally normal tricuspid valve without significant stenosis or regurgitation. Pulmonary artery systolic pressure is normal. Pulmonic Valve Structurally normal pulmonic valve without significant stenosis. There is no pulmonic regurgitation. Pericardium Normal pericardium without effusion. Aorta Normal ascending aorta dimension. IVC The inferior vena cava appears normal. CONCLUSIONS Mildly increased left ventricular cavity size. Sevrely decreased left ventricular systolic function. Global left ventricular hypokinesis. Left ventricular ejection fraction is estimated at 35 %. Grade I/IV diastolic dysfunction (abnormal relaxation filling pattern), normal to mildly elevated filling pressures. Structurally normal mitral valve without significant stenosis or prolapse. There is mild mitral regurgitation. Mild aortic valve calcification. No aortic valve stenosis. Trace to mild aortic valve regurgitation. There is no pericardial effusion. Right atrial pressure is around 5 mm of mercury. Cat Longoria MD (Electronically Signed) Final Date: 05 April 2024 18:36 S
[2024-04-06] MEDS: metroNIDAZOLE IV 500 MG/100 ML PREMIX 100 MG IV ×3 (02:17→17:00)
[2024-04-06] MEDS: sodium chloride 0.9% 1,000 ML 50 ML IV (03:45)
[2024-04-06 04:48] LABS: Basophils % 0.2 %; Eosinophils # 0.2 10^3/uL (0.0-0.8); Eosinophils % 4.1 %; Hematocrit 36.4 % (37-53); Lymphocytes # 1.1 10^3/uL (0.8-4.8); Lymphocytes % 20.5 %; Mean Corpuscular HGB Conc 32.7 g/dL (30-55); Mean Corpuscular Hemoglobin 31.5 pg (27-33); Mean Corpuscular Volume 96.3 fl (82-101); Mean Platelet Volume 9.5 fL (7.4-10.4); Monocytes # 0.8 10^3/uL (0.2-0.9); Monocytes % 14.7 %; Neutrophils # 3.06 10^3/uL (1.8-7.7); Neutrophils % 59.9 %; Nucleated Red Blood Cells % 0 %; Platelet Count 152 10^3/cmm (157-399); Red Blood Count 3.78 10^6/uL (3.85-5.65); Red Cell Distribution Width 14.2 % (12.1-15.1); White Blood Count 5.11 10^3/uL (3.29-11.43)
[2024-04-06 05:12] LABS: Alanine Aminotransferase 11 U/L (0-41); Albumin Level 3.2 g/dL (3.5-5.2); Anion Gap 14.7 (5-19); Aspartate Amino Transferase 28 U/L (0-40); Blood Urea Nitrogen 15 mg/dL (8-23); Calcium 8.1 mg/dL (8.5-10.5); Carbon Dioxide 28 mmol/L (22-29); Chloride 100 mmol/L (98-107); Creatinine Clr Calc Pharmacy 54.3526; Globulin 2.3 g/dL (1.3-4.6); Glucose 99 mg/dL (65-115); Magnesium 1.5 mg/dL (1.7-2.3); Osmolality Calculated 287 mOsm/kg (285-295); Potassium 4.7 mmol/L (3.5-5.1); Sodium 138 mmol/L (136-145); Total Bilirubin 1.3 mg/dL (0.15-1.2); Total Protein 5.5 g/dL (6.6-8.7)
[2024-04-06 05:13] LABS: Alkaline Phosphatase 51 U/L (40-130)
[2024-04-06] MEDS: levothyroxine 100 mcg Tablet PO (05:19)
[2024-04-06 06:18] VITALS: PULSE 98
[2024-04-06] MEDS: magnesium sulfate premix 2 GM/50 ML PIGGYBACK IV (08:02)
[2024-04-06 08:18] VITALS: PULSE 90; RESP 16; O2SAT 95
--- NOTE | 2024-04-06 08:27 | CTR_ITS ---
PROCEDURE INFORMATION: Exam: CT Head Without Contrast Exam date and time: 04/06/2024 10:21 AM Age: 78 years old Clinical indication: Altered mental status/memory loss; Confusion or disorientation; Patient HX: HX of melanoma/bladder; Additional info: Intermittent confusion TECHNIQUE: Imaging protocol: Computed tomography of the head without contrast. Radiation optimization: All CT scans at this facility use at least one of these dose optimization techniques: automated exposure control; mA and/or kV adjustment per patient size (includes targeted exams where dose is matched to clinical indication); or iterative reconstruction. COMPARISON: PT PET WB melanoma INITIAL [id number] 02/06/2024 3:55 PM RADIATION DOSE METRICS: Total DLP (mGy-cm): 1126.47 FINDINGS: Brain: Focal mild relative hyperdensity (38 Hounsfield units) in the region of the right medial temporal lobe parahippocampal gyrus/amygdala, measuring 13.4 x 14.8 x 8.8 mm (previously approximately 9 mm), mild perifocal vasogenic edema. Similar more hyperdense, more heterogeneous lesion near the right foramen of Monro measuring 15.9 x 17.6 x 13.0 mm (previously approximately 11 mm), mild contiguous genu of corpus callosum perifocal vasogenic edema. Similar lesion right superior parietal lobule measuring 21.7 x 18.7 x 13.6 mm (previously approximately 10 mm), with moderate surrounding perifocal vasogenic edema. These 3 lesions demonstrated previous PET avidity (series 301, images 43, 35, 17). Moderate hypoattenuating foci are noted in the anterior lateral ventricular periventricular white matter bilaterally. No acute cortical infarction identified. Ventricles: Prominence of the ventricular system and subarachnoid spaces is consistent with the patient's age of 78 years. Paranasal sinuses: Visualized sinuses are unremarkable. No fluid levels. Mastoid air cells: Visualized mastoid air cells are well aerated. Bones: Unremarkable. No acute fracture. Soft tissues: Unremarkable. Vasculature: Atherosclerotic calcifications are present involving the carotid artery siphons bilaterally and the left vertebral artery. CT/CT head wo con* [id number] IMPRESSION: 1. Intracranial findings consistent with metastatic melanoma given the clinical history and previous PET imaging, with interval size increase. MRI of the brain without and with IV contrast may be helpful for further exclusion of additional lesions. 2. Age appropriate supratentorial and infratentorial atrophy. 3. Moderate chronic white matter microvascular ischemic disease.
[2024-04-06] MEDS: FUROsemide 10 mg/mL SDV 2mL 20 MG IVP (08:29)
[2024-04-06] MEDS: cefTRIAXone 1,000 mg SDV 1000 MG IVP (08:30)
[2024-04-06] MEDS: heparin 5,000 unit/mL INJ 1 mL 5000 UNIT SUBCUT ×2 (08:33→22:07)
[2024-04-06] MEDS: allopurinol 100 mg Tablet PO (08:36)
[2024-04-06] MEDS: sennosides-docusate Tablet 1 TAB PO (08:36)
[2024-04-06 09:18] LABS: Vitamin B12 321 pg/mL (232-1245)
[2024-04-06] MEDS: dexamethasone 4 mg Tablet PO ×2 (11:31→17:30)
--- NOTE | 2024-04-06 12:42 | MR_ITS ---
WS: [id number] MRI HEAD WITH CONTRAST TECHNIQUE: Sagittal T1, T2 axial, T2 axial FLAIR, axial susceptibility weighted imaging, axial diffus ion weighted images, and coronal T2 images were obtained. Pre and post-T1 axial and post T1 coronal i mages. ADC and FSPGR images. CLINICAL INFORMATION: abnormal CT, metastatic melanoma COMPARISON: CT 04/06/2024 FINDINGS: Again seen are multiple T1 hyperintense intracranial metastatic lesions similar to the prior CT. Larg est lesions adjacent to the RIGHT foramen of Monro and deep RIGHT parietal white matter with surround ing vasogenic edema. Associated hemosiderin likely due to blood products in the larger lesions. Moder ate diffuse edema about the RIGHT parietal lesion. Stable enhancing lesion involving the RIGHT anterior temporal lobe measuring 1.1 x 0.9 cm. Mild surro unding vasogenic edema. RIGHT parietal lesion measures approximately 1.5 x 1.5 cm and the RIGHT basal ganglia lesion adjacent to the foramen of Royal measures approximately 1.2 x 1.2 cm. Additional tiny enhancing lesion along the RIGHT posterior temporal lobe with a small amount of edema . This lesion measures 4.5 mm. Tiny enhancing lesion in LEFT frontal lobe near the vertex measuring 4 mm. No evidence of restricted diffusion to suggest acute ischemia. No hydrocephalus. Mild small vessel ch anges. Mild parenchymal volume loss. MR/MR head wo/w con [id number] IMPRESSION: 1. Previously described metastatic lesions are similar in appearance to the re cent CT involving the RIGHT basal ganglia adjacent to the foramen of Monro, RIG HT parietal lobe, and RIGHT anterior temporal lobe. 2. Two additional smaller lesions are visualized by MRI today. See discussion above. 3. No hydrocephalus. 4. No restricted diffusion to suggest acute ischemia.
[2024-04-06] MEDS: gadobenate dimeglumine 20 mL vial IV (14:52)
--- NOTE | 2024-04-06 15:14 | P.PN_ITS ---
Subjective 2 Subjective: Patient is feeling stronger today. I saw him in the morning, as well as in the afternoon when his was present. He reported he still felt a little weak, but was able to eat. No abdominal pain. Nurses note that he has more confusion at night consistent with ing. Secondary to his past history of melanoma we arrange for CT which did demonstrate metastatic lesions with some edema. I discussed with his oncologist, as well as his family this finding. Medications: Reviewed: Yes Vitals/I&O/Wt Last Vital Signs Temp 97.7 F 04/04/24 21:39 Pulse 90 04/06/24 08:18 Resp 16 04/06/24 08:18 BP 104/52 04/05/24 01:20 Pulse Ox 95 04/06/24 08:18 O2 Del Method Room Air 04/06/24 08:18 O2 Flow Rate 2 04/05/24 09:52 04/06/24 04/06/24 04/06/24 06:59 14:59 22:59 Intake Total 1020.833 / 2020.833 1150 / 1150 Output Total 900 / 1750 720 / 720 Balance 120.833 / 270.833 430 / 430 Weight last 48 hrs Weight 99 kg Weight 98.43 kg Weight 98.5 kg Weight 98.883 kg Physical Exam 2 Narrative: General exam, no distress, conversive. Neck is supple no lymphadenopathy thyromegaly Cardiovascular regular rate and rhythm, no murmur Lungs clear Abdomen soft. Tenderness left lower quadrant. Positive bowel sounds exam is deferred Extremities trace edema bilaterally, Data 04/06/24 04:20 04/06/24 04:20 Micro: Microbiology 04/04/24 19:31 Urine Culture - Preliminary Urine,Clean Catch 04/04/24 18:41 Blood Culture - Preliminary Blood NEGATIVE TO DATE 04/04/24 18:39 Blood Culture - Preliminary Blood NEGATIVE TO DATE A&P Assessment and plan (1) Diverticulitis: Patient presents with evidence of diverticulitis per CT. Pneumonia less likely. Placed on Rocephin, Flagyl, linezolid. Discontinue linezolid today Advance diet Patient is clinically improving (2) Acute hypotension: Resolved. Continue to monitor blood pressure (3) Acute kidney injury: Patient with significant acute kidney injury Hold his lisinopril hydrochlorothiazide IV fluids at 50 cc an hour, monitoring for fluid overload symptoms. 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 Recently on checkpoint inhibitor with concern of complication (6) Edema: Significant edema Venous duplex negative Echo showed EF around 35%, global hypokinesis At this point considering his comorbidities continue carvedilol, consider low- dose ARB at discharge if renal function remains stable. Exploration with nuclear stress testing would be fraught with too much risk with new diagnosis of brain tumor with vasogenic edema, undergoing radiation treatment soon and initiation of dexamethasone now. Overall appears better compensated Plan Confusion and weakness. CT demonstrates masses consistent with metastatic melanoma with some vasogenic edema. Dexamethasone initiated. Discussed with oncology, they will consider radiation treatment as an outpatient. Not really a candidate for further checkpoint inhibitors per them and treatment may be limited. Discussed with patient goals may need to be adjusted given this other information. Family is considering. Add Keppra for seizure prophylaxis Hypomagnesemia, supplement Hypothyroidism. Continue supplement. Multiple other medical problems as outlined by past medical history Full code currently, but in discussion regarding this Heparin for DVT prophylaxis May be candidate for hospice in the future Attestations 2 Medical Necessity Statement*: Requires continued hospitalization for addressing new finding of brain tumor, with vasogenic edema, confusion, evaluation with MRI, addition of Keppra. Diagnoses Diverticulitis K57.92 Acute hypotension I95.9 Acute kidney injury N17.9 Sepsis A41.9 Malignant melanoma of back C43.59 Edema R60.9 Time Spent (min) 35
[2024-04-06 15:42] VITALS: TEMP 37.8
[2024-04-06] MEDS: acetaminophen 500 mg Tablet PO (15:42)
[2024-04-06 16:00] VITALS: BP 94/60; PULSE 81; RESP 18; TEMP 37.1; O2SAT 92
[2024-04-06] MEDS: levETIRAcetam 1,000 mg/10 mL UDC 500 MG PO (17:30)
[2024-04-06 19:57] VITALS: BP 125/68; PULSE 58; RESP 18; TEMP 36.6; O2SAT 94
[2024-04-07] VITALS: BP 122/73; PULSE 56; RESP 19; TEMP 36.4; O2SAT 91
[2024-04-07] MEDS: metroNIDAZOLE IV 500 MG/100 ML PREMIX 100 MG IV ×2 (01:34→09:08)
[2024-04-07 04:00] VITALS: BP 137/82; PULSE 42; RESP 18; TEMP 36.2; O2SAT 93
[2024-04-07 05:52] LABS: Basophils % 0.3 %; Hematocrit 38.7 % (37-53); Lymphocytes # 0.3 10^3/uL (0.8-4.8); Lymphocytes % 7.6 %; Mean Corpuscular HGB Conc 32.8 g/dL (30-55); Mean Corpuscular Hemoglobin 31.1 pg (27-33); Mean Corpuscular Volume 94.6 fl (82-101); Mean Platelet Volume 9.5 fL (7.4-10.4); Monocytes # 0.2 10^3/uL (0.2-0.9); Monocytes % 4.3 %; Neutrophils # 3.44 10^3/uL (1.8-7.7); Nucleated Red Blood Cells % 0 %; Platelet Count 179 10^3/cmm (157-399); Red Blood Count 4.09 10^6/uL (3.85-5.65); Red Cell Distribution Width 14.1 % (12.1-15.1); White Blood Count 3.95 10^3/uL (3.29-11.43)
[2024-04-07 06:18] LABS: Anion Gap 16.9 (5-19); Blood Urea Nitrogen 20 mg/dL (8-23); Calcium 8.8 mg/dL (8.5-10.5); Carbon Dioxide 27 mmol/L (22-29); Chloride 95 mmol/L (98-107); Creatinine Clr Calc Pharmacy 50.4702; Glucose 180 mg/dL (65-115); Magnesium 1.6 mg/dL (1.7-2.3); Osmolality Calculated 285 mOsm/kg (285-295); Potassium 4.9 mmol/L (3.5-5.1); Sodium 134 mmol/L (136-145)
[2024-04-07] MEDS: levothyroxine 100 mcg Tablet PO (07:18)
[2024-04-07 08:00] VITALS: BP 124/51; PULSE 80; RESP 17; TEMP 36.6; O2SAT 94
[2024-04-07] MEDS: levETIRAcetam 1,000 mg/10 mL UDC 500 MG PO (09:06)
[2024-04-07] MEDS: cefTRIAXone 1,000 mg SDV 1000 MG IVP (09:07)
[2024-04-07] MEDS: dexamethasone 4 mg Tablet PO (09:07)
[2024-04-07] MEDS: allopurinol 100 mg Tablet PO (09:07)
[2024-04-07] MEDS: heparin 5,000 unit/mL INJ 1 mL 5000 UNIT SUBCUT (09:07)
[2024-04-07] MEDS: sennosides-docusate Tablet 1 TAB PO (09:07)
[2024-04-07 09:18] VITALS: PULSE 79; RESP 16; O2SAT 94
--- NOTE | 2024-04-07 09:24 | PM.DCS ---
Discharge Providers Date of Admission: 04/04/24 20:41 Date of Discharge: April 07, 2024 Attending Provider at Admission: Cat Vila MD Attending Provider at Discharge: Quin Burnham MD Primary Care Provider: Elayne Sims DO Diagnoses at Discharge Discharge Diagnosis (1) Diverticulitis: Status: Acute (2) Acute hypotension: Status: Acute (3) Acute kidney injury: Status: Acute (4) Sepsis: Status: Acute (5) Malignant melanoma of back: Status: Acute (6) Edema: Status: Acute Reason for Visit Reason for Visit: ams, joint n muscle pain Hospital Course Hospital Course Patient is a 78-year-old white male with known metastatic melanoma, with recent issues taking a checkpoint inhibitor and having to take several tapers of steroids for muscle pain. He presented with fever, sepsis, and was given IV antibiotics after acute diverticulitis in the sigmoid region was found. His low blood pressure, and sepsis resolved fairly quickly. During the course of his hospital stay he had some confusion, hence CT scan and subsequent MRI demonstrated metastatic melanoma to the brain with some vasogenic edema. Dexamethasone was initiated. Keppra was started prophylactically to prevent seizures. He tolerated this well, had increased energy level, less confusion and was able to be discharged on April 07. Family was present with him on discharge and was able to ask questions and agreed with the plan. He will follow-up with his oncologist tomorrow for consideration of irradiation for his melanoma that is metastatic to his brain. He will finish up course of antibiotics. Was also discovered his EF was approximately 30 to 35%. He can follow-up with his primary care provider regarding this but considering global hypokinesis, relatively asymptomatic, no further investigation will be done at this time considering his widely metastatic melanoma that cannot be treated with any further chemotherapeutic agents during my conversation with oncology on-call. Physical Exam Narrative: General Exam no distress Neck is supple Cardiovascular regular rate rhythm, 2/6 systolic murmur Lungs clear Abdomen soft Extremities no cyanosis clubbing, trace edema is present bilaterally. Discharge Data Studies Completed and Pending Completed Studies During Hospitalization Category Date Time Status CT chest abdomen pelvis [[place] [id number] Cat Scan 04/04/24 20:28 Completed ] Stat CT head wo con* [id number] Routine Cat Scan 04/06/24 08:27 Completed XR chest 1V portable [id number] Stat Exams 04/04/24 17:32 Completed MR head wo/w con [id number] Routine MRI 04/06/24 12:42 [place] [id number] Routine Ultrasound 04/05/24 23:57 Completed CV. echo complete* [id number] Routine Ultrasound 04/05/24 23:57 Completed Pending at discharge Category Date Time Status Blood Culture Stat Lab 04/04/24 18:41 Results Sputum Culture and Gram Stain Routine Lab 04/04/24 23:57 Uncollected Radiology Impressions Chest X-Ray 04/04/24 17:32 IMPRESSION: 1. No evidence of acute cardiopulmonary disease. Chronic findings as above. Chest/Abdomen/Pelvis CT 04/04/24 20:28 IMPRESSION: 1. Minimal consolidation in the lung bases likely atelectasis although developing infiltrate cannot be excluded. 2. Other chronic findings as above. IMPRESSION: 1. Diverticular disease with wall thickening and adjacent inflammation associated with sigmoid colon suggesting acute diverticulitis. No evidence of gross perforation. 2.Other incidental and/or chronic findings as detailed above. Head CT 04/06/24 08:27 IMPRESSION: 1. Intracranial findings consistent with metastatic melanoma given the clinical history and previous PET imaging, with interval size increase. MRI of the brain without and with IV contrast may be helpful for further exclusion of additional lesions. 2. Age appropriate supratentorial and infratentorial atrophy. 3. Moderate chronic white matter microvascular ischemic disease. ADDENDUM: 04/06/24 1103 THIS REPORT CONTAINS FINDINGS THAT MAY BE CRITICAL TO PATIENT CARE. The findings were verbally communicated by me to DR. QUIN BURNHAM via telephone conference at 11:01 AM INTENSIVE CARE UNIT REGISTERED NURSE on 04/06/2024. The findings were acknowledged and understood. Head MRI 04/06/24 12:42 IMPRESSION: 1. Previously described metastatic lesions are similar in appearance to the recent CT involving the RIGHT basal ganglia adjacent to the foramen of Monro, RIGHT parietal lobe, and RIGHT anterior temporal lobe. 2. Two additional smaller lesions are visualized by MRI today. See discussion above. 3. No hydrocephalus. 4. No restricted diffusion to suggest acute ischemia. Laboratory Results WBC 3.95 10^3/uL (3.29-11.43) 04/07/24 05:34 RBC 4.09 10^6/uL (3.85-5.65) 04/07/24 05:34 Hgb 12.70 g/dL (11.27-16.99) 04/07/24 05:34 Hct 38.7 % (37-53) 04/07/24 05:34 MCV 94.6 fl (82-101) 04/07/24 05:34 MCH 31.1 pg (27-33) 04/07/24 05:34 MCHC 32.8 g/dL (30-55) 04/07/24 05:34 RDW 14.1 % (12.1-15.1) 04/07/24 05:34 Plt Count 179 10^3/cmm (157-399) 04/07/24 05:34 MPV 9.5 fL (7.4-10.4) 04/07/24 05:34 Neut % (Auto) 87.0 % 04/07/24 05:34 Lymph % (Auto) 7.6 % 04/07/24 05:34 [place] % (Auto) 4.3 % 04/07/24 05:34 Eos % (Auto) 0.0 % 04/07/24 05:34 Baso % (Auto) 0.3 % 04/07/24 05:34 Neut # (Auto) 3.44 10^3/uL (1.8-7.7) 04/07/24 05:34 Lymph # (Auto) 0.3 10^3/uL (0.8-4.8) L 04/07/24 05:34 [place] # (Auto) 0.2 10^3/uL (0.2-0.9) 04/07/24 05:34 Eos # (Auto) 0.0 10^3/uL (0.0-0.8) 04/07/24 05:34 Baso # (Auto) 0.0 10^3/uL (0.0-0.1) 04/07/24 05:34 Nucleated RBC % (auto) 0 % 04/07/24 05:34 Nucleated RBCs # 0.0 /100WBC 04/07/24 05:34 D-Dimer 1.21 ug/mLFEU (0-0.59) H 04/04/24 17:39 Specimen Type Arterial 04/04/24 17:42 Sample Site Radial, right 04/04/24 17:42 ABG pH 7.42 (7.35-7.45) 04/04/24 17:42 ABG pCO2 44.3 mmHg (35-45) 04/04/24 17:42 ABG pO2 79.0 mmHg (80.0-100.0) L 04/04/24 17:42 ABG HCO3 28.4 mmol/L (22-26) H 04/04/24 17:42 ABG O2 Saturation 96.5 04/04/24 17:42 ABG Base Excess 3.3 mmol/L (-2.0-2.0) H 04/04/24 17:42 [place] Test Pos 04/04/24 17:42 A-a O2 Gradient 1.9 mmHg (5-10) L 04/04/24 17:42 Hematocrit 39.4 % (42-52) L 04/04/24 17:42 Hgb O2 Saturation 94.0 % (95-100) L 04/04/24 17:42 Carboxyhemoglobin 1.8 %THgb (0.4-20.1) 04/04/24 17:42 Methemoglobin 0.9 % (0.4-1.5) 04/04/24 17:42 Total Hemoglobin 12.9 g/dL (14-18) L 04/04/24 17:42 Sodium 135.0 mmol/L (131-143) 04/04/24 17:42 Potassium 4.5 mmol/L (3.5-5.0) 04/04/24 17:42 Glucose 109.0 mg/dL (70-115) 04/04/24 17:42 Ionized Calcium 1.1 mmol/L (1.1-1.4) 04/04/24 17:42 O2 Delivery Device Nc 04/04/24 17:42 O2 Liters/Min 3.0 % 04/04/24 17:42 Geoscience Professor ID [place] 04/04/24 17:42 Sodium 134 mmol/L (136-145) L 04/07/24 05:34 Potassium 4.9 mmol/L (3.5-5.1) 04/07/24 05:34 Chloride 95 mmol/L (98-107) L 04/07/24 05:34 Carbon Dioxide 27 mmol/L (22-29) 04/07/24 05:34 Anion Gap 16.9 (5-19) 04/07/24 05:34 BUN 20 mg/dL (8-23) 04/07/24 05:34 Creatinine 1.4 mg/dL (0.7-1.2) H 04/07/24 05:34 GFR Calculation Not Reportable 04/07/24 05:34 Glucose 180 mg/dL (65-115) H 04/07/24 05:34 Calculated Osmolality 285 mOsm/kg (285-295) 04/07/24 05:34 Lactic Acid 0.7 mmol/L (0.5-2.2) 04/05/24 03:47 Uric Acid 5.6 mg/dL (3.4-7.0) 04/04/24 19:14 Calcium 8.8 mg/dL (8.5-10.5) 04/07/24 05:34 Magnesium 1.6 mg/dL (1.7-2.3) L 04/07/24 05:34 Total Bilirubin 1.3 mg/dL (0.15-1.2) H 04/06/24 04:20 AST 28 U/L (0-40) 04/06/24 04:20 ALT 11 U/L (0-41) 04/06/24 04:20 Alkaline Phosphatase 51 U/L (40-130) 04/06/24 04:20 Creatine Kinase 37 U/L (39-308) L 04/05/24 03:47 Troponin T Baseline 74 ng/L (0-15) H 04/04/24 17:39 Troponin T 120 Minute 68.68 ng/L (0-15) H 04/04/24 19:14 Delta Troponin T -5.32 ABS# (0-10) L 04/04/24 19:14 Troponin T Hi Sens 6Hr 62.18 ng/L (0-15) H 04/04/24 23:31 Troponin T Hi Sens 6Hr Delta -11.82 ng/L (0-12) L 04/04/24 23:31 C-Reactive Protein 98.3 mg/L (0.0-4.9) H 04/05/24 03:47 NT-Pro-B Natriuret Pep 3260 pg/mL (0-450) H 04/04/24 17:39 Total Protein 5.5 g/dL (6.6-8.7) L 04/06/24 04:20 Albumin 3.2 g/dL (3.5-5.2) L 04/06/24 04:20 Globulin 2.3 g/dL (1.3-4.6) 04/06/24 04:20 Vitamin B12 321 pg/mL (232-1245) 04/06/24 04:20 Procalcitonin 0.29 ng/mL (0-0.5) 04/04/24 19:14 TSH 17.93 uIU/mL (0.27-4.20) H 04/05/24 03:47 Urine Color Yellow Medicine (Yellow) A 04/04/24 19: Urine Appearance Cloudy (CLEAR) A 04/04/24 19: Urine pH 5.0 (5-7) 04/04/24 19: Ur Specific [place] 1.022 (1.005-1.030) 04/04/24 19: Urine Protein 1+ (Negative) A 04/04/24 19: Urine Glucose (UA) Negative (Normal) 04/04/24 19: Urine Ketones 1+ (Negative) H 04/04/24 19: Urine Blood Negative (Negative) 04/04/24: Urine Nitrate Positive (Negative) A 04/04/24 19 Urine Bilirubin 2+ (Negative) H 04/04/24 19: Urine Urobilinogen 2.0 mg/dL (Negative) H 04/04/24 19: Ur Leukocyte Esterase 1+ (Negative) A 04/04/24 19: Urine RBC 3-5 /hpf (0-2) 04/04/24 19: Urine WBC 0-5 /hpf (0-5) 04/04/24 19: Ur Squamous Epith Cells 6-10 /hpf (0-5) 04/04/24 19: Amorphous Sediment Not Reportable 04/04/24 19: Urine Bacteria 1+ /hpf (NONE) H 04/04/24 19: Hyaline Casts 112.95 /lpf 04/04/24 19:31 Adenovirus (PCR) Not detected (NOT DETECT) 04/04/24 18:08 C. pneumoniae DNA (PCR) Not detected (NOT DETECT) 04/04/24 18:08 Coronavirus 229E (PCR) Not detected (NOT DETECT) 04/04/24 18:08 Human Metapneumovir PCR Not detected (NOT DETECT) 04/04/24 18:08 Influenza A (H1) PCR Not detected (NOT DETECT) 04/04/24 18:08 Influ A (H1/09) PCR Not detected (NOT DETECT) 04/04/24 18:08 Influenza A (H3) PCR Not detected (NOT DETECT) 04/04/24 18:08 Influenza Type A (PCR) Not detected (NOT DETECT) 04/04/24 18:08 Influenza Type B (PCR) Not detected (NOT DETECT) 04/04/24 18:08 M. pneumoniae (PCR) Not detected (NOT DETECT) 04/04/24 18:08 Parainfluenza 1 (PCR) Not detected (NOT DETECT) 04/04/24 18:08 Parainfluenza 2 (PCR) Not detected (NOT DETECT) 04/04/24 18:08 Parainfluenza 3 (PCR) Not detected (NOT DETECT) 04/04/24 18:08 Parainfluenza 4 (PCR) Not detected (NOT DETECT) 04/04/24 18:08 RSV Type A (PCR) Not detected (NOT DETECT) 04/04/24 18:08 RSV Type B (PCR) Not detected (NOT DETECT) 04/04/24 18:08 Entero/Rhino (PCR) Not detected (NOT DETECT) 04/04/24 18:08 SARS-CoV-2 (PCR) Not detected (NOT DETECT) 04/04/24 18:08 Vitals Last Vital Signs Temp 97.8 F 04/07/24 08:00 Pulse 79 04/07/24 09:18 Resp 16 04/07/24 09:18 BP 124/51 04/07/24 08:00 Pulse Ox 94 04/07/24 09:18 O2 Del Method Room Air 04/07/24 09:18 O2 Flow Rate 2 04/05/24 09:52 Discharge Plan Discharge Patient Disposition: Home Condition: Stable Prescriptions: New levothyroxine [Levoxyl] 100 mcg Tablet 100 mcg PO 0600 Qty: 30 0RF dexamethasone 4 mg Tablet 4 mg PO BID Qty: 60 0RF levetiracetam [Keppra] 500 mg tablet 500 mg PO BID Qty: 60 0RF metronidazole 500 mg tablet 500 mg PO TID Qty: 21 0RF ciprofloxacin HCl [Cipro] 500 mg tablet 500 mg PO BID Qty: 14 0RF Continued albuterol sulfate 90 mcg/actuation HFA aerosol inhaler 2 puff inhalation Q6H ciclopirox 0.77 % cream 1 applic topical PRN PRN (Reason: flaking areas) atorvastatin 20 mg tablet 20 mg PO DAILY Discontinued carvedilol 25 mg tablet 25 mg PO DAILY lisinopril-hydrochlorothiazide 20-25 mg tablet 1 tab PO DAILY levothyroxine 25 mcg tablet 25 mcg PO DAILY Discharge Orders: Discharge Order (Routine); Ordered 04/07/24 Ordered By: Quin Burnham Referrals: Elayne Sims DO [Primary Care Provider] - 04/09/24 11:00 am (Check in time is 10:45am on 04/09/24.) Discharge Diet: Usual diet Discharge Activity: Increase activity as tolerated Patient Instructions: Ciprofloxacin (By mouth), Metronidazole (By mouth), Dexamethasone (By mouth), Levetiracetam (By mouth), Opioid Safety, Pneumonia Stoplight Activity Restrictions/Additional Instructions: Soft diet Follow-up with oncology tomorrow Take all medicine as prescribed Repeat TSH with your primary care provider in approximately 4 weeks Return for any concerns No driving For any severe diarrhea after antibiotics are completed notify your primary care provider Discharge Attestations Time Spent in Discharge Care*: greater than 30 min Quality Metrics Clinical Quality Measures [ No reported AMI, CVA or VTE this stay] Coding Level of Care Code 42351 Total time (in minutes) for Discharge: 34 Diagnoses Diverticulitis K57.92 Acute hypotension I95.9 Acute kidney injury N17.9 Sepsis A41.9 Malignant melanoma of back C43.59 Edema R60.9
--- NOTE | 2024-04-07 10:28 | PC.SOCIAL ---
IMM Update pg 2 of IMM Updated and reviewed w/ patient and . Copy provided and copy dated, initialed and placed in chart.
--- NOTE | 2024-04-07 11:11 | PC.NURSE ---
Prescriptions called into [facility] @[phone] verified with
[2024-04-07 12:12] VITALS: BP 124/51; PULSE 79; RESP 16; TEMP 36.6; O2SAT 94
== END 2024-04-07 12:14 | disposition home or self-care (01) | DRG 872 ==
LOC: ER 21:15 → ICU 22:56 → MEDSURG 04-06 11:52
PROVIDERS: Emergency Medicine; Admitting Provider Internal Medicine; Emergency Provider Emergency Medicine; PCP Family Medicine; Visit Provider Internal Medicine
DX: A41.9 Sepsis, unspecified organism (principal); N17.9 Acute kidney failure, unspecified; C79.31 Secondary malignant neoplasm of brain; C79.51 Secondary malignant neoplasm of bone; I13.0 Hypertensive heart and chronic kidney disease with heart failure and stage 1 through stage 4 chronic kidney disease, or unspecified chronic kidney disease; K57.92 Diverticulitis of intestine, part unspecified, without perforation or abscess without bleeding; I95.9 Hypotension, unspecified; C43.59 Malignant melanoma of other part of trunk; M35.3 Polymyalgia rheumatica; N18.9 Chronic kidney disease, unspecified; I50.810 Right heart failure, unspecified; R09.02 Hypoxemia; E66.01 Morbid (severe) obesity due to excess calories; Z68.30 Body mass index [BMI] 30.0-30.9, adult; J44.9 Chronic obstructive pulmonary disease, unspecified; E83.42 Hypomagnesemia; E03.9 Hypothyroidism, unspecified; Z87.891 Personal history of nicotine dependence
CPT/HCPCS: 36415; 36600; 70450; 70553; 71045; 71250; 74176; 80048; 80051; 80053; 81001; 82330; 82550; 82607; 82805; 83605; 83735; 83880; 84145; 84443; 84484; 84550; 85025; 85378; 86140; 87040; 87086; 87486; 87581; 87633; 93005; 93306; 93970; 96365; 96372; 96375; 97110; 97116; 97162; 99285; J0696; J1644; J1940; J2020; J2185; J3475; J3490; J7030; J8540

== ENCOUNTER 2024-04-29 08:01 | Oncology outpatient (recurring) (ONCR) | payer MEDICARE, OTHER, SELFPAY ==
--- NOTE | 2024-04-08 10:20 | N.ONRAD NP_ITS ---
Radiation Oncology New Patient Visit Patient: Kush Dodd MR#: [id number] : 1945> Age: 78> Sex: Male> Dictated by: Dr. Angeli Acosta Date of Service: 04/08/2024 Referring Physician(s) : Jorge Diagnosis: C79.31 - secondary malignant neoplasm of brain, Diagnosed 04/08/2024 (active). Radiotherapy to date: Summary > No prior radiation therapy. Chief Complaint / History of Present Illness: Patient is a 78-year-old gentleman with a history of a melanoma dating from July 2023. This was found on his right upper back. PET scan at that time showed right axillary and supraclavicular nodes as well as a right sixth rib metastasis. MRI of his head showed what was described as a tiny lesion. He was treated with 7 cycles of nivolumab with good control and response to his systemic disease. He recently however was admitted with confusion, weakness and fever. He was found to have on CT scan 3 lesions. MRI showed there were additional lesions. He has been released from the hospital. He is on steroids but not on Prevacid. I have asked his to start him on Prevacid as long as he is on his steroids. He is currently asymptomatic. He is feeling much better since being released. He is here today to discuss radiation for brain metastasis. Current Medications: albuterol sulfate 90 mcg/actuation 2 puffs inhalation Q6H atorvastatin 20 mg PO DAILY ciclopirox 0.77% 1 applic topical PRN PRN ciprofloxacin HCl (Cipro) 500 mg PO BID dexamethasone 4 mg PO BID levetiracetam (Keppra) 500 mg PO BID levothyroxine (Levoxyl) 100 mcg PO 0600 metronidazole 500 mg PO TID Allergies: No Known Allergies Allergy (Verified 04/01/24 09:2 Medical History: Skin cancer, basal cell Bladder cancer COPD (chronic obstructive pulmonary disease) Hypertens Surgical History: History of right knee surgery History of hernia repair Family History: Father Melanoma Mother Heart disease Sister Diabetes Social History: Smoking and tobacco/nicotine status: former use of tobacco/nicotine Additional social history: He quit smoking 40 to 50 years ago. Current Complaints / Review of Systems: . Vital Signs: Performed on 04/08/2024 9:28 AM BMI - 31.768 kg/m2 (high), Height - 70 in, Weight - 221.4 lbs, Temperature - 98.1 f, Pulse - 64 /min, Respiration - 18 /min, O2 Sat - 97 %, Pain - 5, Fatigue - 0 and BP - 129/ 80 mm(hg). Physical Exam: General: Patient is in no apparent distress. He is companied by his . HEENT: Normocephalic atraumatic. Extraocular muscles intact. Sclera clear Pulmonary: Respiratory rate is regular nonlabored Cardiovascular: Regular rate and rhythm Abdomen: Mildly protuberant and android pattern Extremities: No obvious upper extremity edema or lymphedema is noted Skin: He is quite fair with blue eyes and pale skin with chronic skin changes across his face and hands. Neurological: Alert and orient x 3. Gait and speech within normal limits Psych: Affect appropriate for current situation Performance Status: 90 Pathology: Primary, c79.31 - secondary malignant neoplasm of brain, Diagnosed 04/08/2024 (active) . 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 We talked about the treatment for brain metastasis. Secondary to the size and number of lesions he is has I recommend that he proceed with whole brain radiation. He is at this point scheduled to begin chemotherapy again on May 06. We reviewed the simulation process. We discussed the daily treatment regiment we discussed the risks and side effects both acute and long-term. At this time he is agreed to proceed with radiation. He will add Prevacid to his dexamethasone regiment. He will undergo simulation today and will begin his treatments shortly thereafter in order to get these completed so that he can continue on with his immune therapy. Signed by: 04/08/2024 10:19:06 AM <<Signature on File>> Time spent on patient: 45 CPT Code: CPT Code:
--- NOTE | 2024-04-13 15:35 | ONCRAD TMN_ITS ---
Radiation Oncology Weekly Treatment Management Patient: Kush Dodd MR#: [id number] : 1945 Attending Physician: Dr. Angeli Acosta Date of Service: 04/13/2024 Fractions: 2 out of 10 Referring Physician(s) : Diagnosis: C79.31 - Secondary malignant neoplasm of brain, Diagnosed 04/08/2024 (Active) Radiotherapy to date: Course: whole brain, Treatment Site: [id number], Ref. ID: [id number], Energy: 15X, Dose/Fx (cGy): 300, #Fx: 2 / 10, Dose Correction (cGy): 0, Total Dose Delivered (cGy): 600, Start Date: 04/12/2024, Elapsed Days: 1 Reason for visit: The patient is being seen today as part of their regularly scheduled weekly on treatment visits to assess for acute toxicities from radiotherapy. Review of Systems: Patient has noticed no changes Vital Signs: Performed on 04/13/2024 3:18 PM BMI - 31.366 kg/m2 (high), Height - 70 in, Weight - 218.6 lbs, Temperature - 96.7 f, Pulse - 40 /min (low), Respiration - 16 /min, O2 Sat - 98 %, Pain - 0, Fatigue - 0 and BP - 146/ 78 mm(hg)(high/). Physical Exam: No changes on exam Imaging: Radiation therapy imaging related to accurate target localization (i.e. KV, MV and CBCT) was reviewed. Appropriate changes, if any, were made to ensure treatment accuracy. Plan: Will continue with his treatments as planned Signed by: Dr. Angeli Acosta 04/13/2024 3:33:59 PM
--- NOTE | 2024-04-19 15:12 | ONCRAD TMN_ITS ---
Radiation Oncology Weekly Treatment Management Patient: Yousif Currie> MR#: [id number] : 1945> Attending Physician: Dr. Angeli Acosta Date of Service: 04/19/2024 Fractions: 6 out of 10 Referring Physician(s) : Diagnosis: C79.31 - Secondary malignant neoplasm of brain, Diagnosed 04/08/2024 (Active) Radiotherapy to date: Course: whole brain, Treatment Site: [id number], Ref. ID: [id number], Energy: 15X, Dose/Fx (cGy): 300, #Fx: 6 / 10, Dose Correction (cGy): 0, Total Dose Delivered (cGy): 1,800, Start Date: 04/12/2024, Elapsed Days: 7 Reason for visit: The patient is being seen today as part of their regularly scheduled weekly on treatment visits to assess for acute toxicities from radiotherapy. Review of Systems: Patient got cold this morning at 330 when the power went out. Apparently got down into the mid 50s in their house. Since that time he is not been able to get warm. His O2 level today was also low and he is not wearing his oxygen. Vital Signs: Performed on 04/19/2024 3:02 PM BMI - 31.337 kg/m2 (high), Height - 70 in, Weight - 218.4 lbs, Temperature - 96.7 f, Pulse - 67 /min, Respiration - 18 /min, O2 Sat - 87 % (low), Pain - 7, Fatigue - 4 and BP - 136/ 84 mm(hg). Physical Exam: On exam no changes Imaging: Radiation therapy imaging related to accurate target localization (i.e. KV, MV and CBCT) was reviewed. Appropriate changes, if any, were made to ensure treatment accuracy. Plan: Will continue with his treatments. I have asked his to put him back on his oxygen once he gets home. I have also asked him to wear his oxygen [id number] to his appointments. We talked about getting him warmed up and possibly feeding him some chicken noodle soup at his request. Signed by: Dr. Angeli Acosta 04/19/2024 3:11:02 PM
--- NOTE | 2024-04-26 09:05 | N.ONRD TS_ITS ---
Radiation Oncology Treatment Summary Patient: Kush Dodd MR#: [id number] : 1945 Age: 78 Sex: Male Dictated by: Dr. Angeli Acosta Date of Service: 04/26/2024 Referring Physician(s) : Diagnosis: C79.31 - Secondary malignant neoplasm of brain, Diagnosed 04/08/2024 (Active) Radiotherapy to Date: Course: whole brain, Treatment Site: [id number], Ref. ID: [id number], Energy: 15X, Dose/Fx (cGy): 300, #Fx: 10 / 10, Dose Correction (cGy): 0, Total Dose Delivered (cGy): 3,000, Start Date: 04/12/2024, End Date: 04/23/2024, Elapsed Days: 11 Clinical Summary: The patient tolerated RT well. Patient had no ill effects during the course of his treatment. Plan: End of treatment today. Continue on the above medication until the skin reaction resolves. Follow up in one month. Signed by: Dr. Angeli Acosta>04/26/2024 9:03:08 AM <<Signature on File>>
--- NOTE | 2024-04-28 15:00 | USCV_ITS ---
Kush Dodd Age: 78 Gender: M : 1945 Exam Date: 04/28/2024 15:29 Ordering Phys: Denilson Nobles MD Technologist: CT [place] [facility] [place]: [place] BP: / HR: Rhythm: Sinus Technical Quality: Adequate MEASUREMENTS (Male / Female) Normal Values 2D ECHO LVOT Diameter 2.0 cm LV Ejection Fraction MOD 4C 38.9 % LV Ejection Fraction MOD 2C 43.8 % LV Ejection Fraction 2C AL 46.4 % LA Diameter 4.1 cm RA Systolic Volume 4C AL 72.6 ml RA Systolic Volume 4C MOD 68.7 ml LA Sys Volume AL 76.9 cm cubed LA Sys Volume Index AL 34.2 cm cubed/m squared Aorta at Sinotubular Diameter 2.5 cm IVC Diameter 2.0 cm M-MODE LA Ao Ratio MM 1.5 AV Cusp Separation MM 2.1 cm FINDINGS Left Ventricle Mildly increased left ventricular cavity size. Moderately decreased left ventricular systolic function. Left ventricular ejection fraction is estimated at 40%. Abnormal septal motion consistent with conduction abnormality. Right Ventricle Right Atrium Left Atrium Mitral Valve Aortic Valve Tricuspid Valve Pulmonic Valve Pericardium Aorta IVC CONCLUSIONS Limited echo Mildly increased left ventricular cavity size. Moderately decreased left ventricular systolic function. Left ventricular ejection fraction is estimated at 40%. Abnormal septal motion consistent with conduction abnormality. There is no pericardial effusion. Cta Longoria MD (Electronically Signed) Final Date: 28 April 2024 16:45 S
== END 2024-04-30 23:59 | disposition home or self-care (01) ==
LOC: ONCMED 08:01
PROVIDERS: PCP Family Medicine; Visit Provider Internal Medicine
DX: Z87.891 Personal history of nicotine dependence; C43.59 Malignant melanoma of other part of trunk; E03.9 Hypothyroidism, unspecified; C79.51 Secondary malignant neoplasm of bone; C79.31 Secondary malignant neoplasm of brain; E66.9 Obesity, unspecified; Z68.29 Body mass index [BMI] 29.0-29.9, adult; N50.0 Atrophy of testis; Z79.52 Long term (current) use of systemic steroids; I11.0 Hypertensive heart disease with heart failure; I50.9 Heart failure, unspecified; Z79.899 Other long term (current) drug therapy
CPT/HCPCS: 36415; 77336; 77387; 77412; 93308; 99024; 99205; 99214; 99215

== ENCOUNTER 2024-05-01 08:04 | Inpatient (IN) | payer MEDICARE, OTHER, SELFPAY ==
[2024-05-01] VITALS (8 sets, daily range): BP systolic 90–111; BP diastolic 49–89; PULSE 85–104; RESP 19–23; TEMP 36.8–37.7; O2SAT 92–99; BMI 29.2
--- NOTE | 2024-05-01 08:52 | XRR_ITS ---
PROCEDURE INFORMATION: Exam: XR Chest Exam date and time: 05/01/2024 9:12 AM Age: 78 years old Clinical indication: Dyspnea; Additional info: Weakness TECHNIQUE: Imaging protocol: Radiologic exam of the chest. Views: 1 view. COMPARISON: CT chest abdpel [id number] 04/04/2024 9:00 PM FINDINGS: Lungs: Unremarkable. No consolidation. Pleural spaces: Unremarkable. No pleural effusion. No pneumothorax. Heart/Mediastinum: Unremarkable. No cardiomegaly. Bones/joints: Unremarkable. XR/XR chest 1V portable [id number] IMPRESSION: No acute findings.
--- NOTE | 2024-05-01 08:54 | ED_ITS ---
HPI - Weakness 2 General: Chief complaint: Weakness Stated complaint: general weakness Time Seen by Provider: 05/01/24 08:40 History of Present Illness: Patient is a male with known brain cancer (metastasis from malignant melanoma) who presents with acute onset generalized weakness. Symptoms began this morning when he was too weak to get out of bed. Per family, patient has been more confused lately; also not eating or drinking very well. Patient reports being unable to get up onto his bed, requiring assistance from his . He denies falls but describes profound weakness that has persisted through the night. Per family, patient is notably confused and has memory issues. Patient recently completed 2 weeks of radiation therapy for brain cancer. New onset urinary incontinence reported for at least one month. Denies fever, vomiting, or diarrhea. Reports dry throat, dry mouth with some throat pain, and sinus congestion with occasional blood-tinged nasal drainage, but denies krystina nosebleeds. Patient is scheduled to start chemo this week. Constitutional: Denies fever, chills, or sweats HEENT: Positive for sore throat, dry mouth, sinus congestion, blood-tinged nasal drainage Respiratory: Denies shortness of breath Cardiovascular: No syncope Gastrointestinal: Denies abdominal pain, nausea, vomiting, or diarrhea Genitourinary: Positive for new urinary incontinence Musculoskeletal: Severe generalized weakness Neurological: Confusion and memory issues noted by family PFSH ED 2 PFSH: Medical History Skin cancer, basal cell Bladder cancer COPD (chronic obstructive pulmonary disease) Hypertension Malignant melanoma of back Surgical History History of right knee surgery History of hernia repair Family History Father Melanoma Mother Heart disease Sister Diabetes Social History Smoking and tobacco/nicotine status: former use of tobacco/nicotine Additional social history: He quit smoking 40 to 50 years ago. Physical Exam 2 Const: COMMON NORMALS: no acute distress and alert HENMT: OTHER: Mucous membranes, no oropharyngeal erythema Resp: OTHER: Lungs are clear bilaterally, no wheezes or rhonchi. Breath sounds are equal, no respiratory distress Cardio: OTHER: Heart regular rate and rhythm, no murmur Extremity: OTHER: Patient has 1+ pitting edema bilaterally. Motor and sensory function are normal. Extremities are atraumatic, nontender Neuro: SENSORIUM/ORIENTATION: Yes alert OTHER: Lower extremities, 4-4 bilaterally upper and lower extremity strength; normal sensation both lower extremities. Course 2 ED course: Patient has been given a total of 1 L of normal saline. He is hypomagnesemic with a magnesium of 1.5 so I have ordered 2 g of IV magnesium. CT head is negative for acute findings. He does have previously seen metastatic lesions which have slightly diminished in size in comparison to previous. Chest x-ray shows no infiltrate or effusion per my interpretation. Radiology is also read his chest x-ray. Patient's condition remains essentially unchanged. I had a long discussion with the patient, his family. Its gotten to the point where they are unable to care for him at home, at least without assistance. They are wanting the patient placed in a skilled nursing facility or potentially are considering hospice. Discussed the case with the hospitalist who is willing to put the patient in the hospital. He does have worsening of his renal function in association with hyperkalemia, hypomagnesemia and worsening weakness. Vital Signs: Vital signs: Vital Signs Temperature 98.7 F 05/01/24 08:07 Pulse Rate 97 05/01/24 12:03 Respiratory Rate 20 H 05/01/24 12:03 Blood Pressure 94/53 05/01/24 12:03 Pulse Oximetry 92 05/01/24 12:03 Oxygen Delivery Me thod Room Air 05/01/24 11:14 MDM - Weakness Medical Decision Making Patient is a 78 year old male with known brain cancer (metastatic malignant melanoma) status post radiation therapy presenting with acute onset generalized weakness, confusion, and new urinary incontinence. Problem List: 1. Acute generalized weakness 2. Altered mental status 3. Brain cancer 4. New urinary incontinence 5. Upper respiratory symptoms Differential Diagnosis: 1. Radiation therapy effects 2. Disease progression 3. Metabolic derangement 4. Dehydration 5. Infection 6. Medication side effects ED Course: Patient to receive IV fluids and undergo diagnostic testing to evaluate for acute causes of weakness and mental status changes. 1. Acute generalized weakness and altered mental status - Obtain comprehensive metabolic panel, CBC, thyroid studies, urinalysis, check for COVID - CT head to evaluate for disease progression - IV fluid hydration - Neurology consultation 2. Brain Cancer -CT scan to evaluate for disease progression 3. Upper respiratory symptoms - Consider chest x-ray to rule out pneumonia Lab Data Patient does have worsening of his renal function with a creatinine of 2.2, most recently it was 1.4. He is hyperkalemic with a potassium of 5.7. He is hypomagnesemic with a magnesium of 1.5. I have given him Kayexalate orally to help with the hyperkalemia. He is got IV magnesium hanging. He has been given 1 L of normal saline. Urinalysis is negative for UTI. His white blood cell count is normal at 10.5. Hemoglobin is 13.8 which is stable. 05/01/24 09:05 05/01/24 09:05 Radiology Impressions Chest X-Ray 05/01/24 08:52 IMPRESSION: No acute findings. Head CT 05/01/24 09:03 IMPRESSION: Again noted are multiple metastatic lesions in the brain which were identified on previous scans. They have mildly decreased in size in the adjacent edema has diminished. No new abnormalities are seen in the brain. ASSESSMENT: ASPECTS ([place] Stroke Program Early CT Score) is 10. ADDENDUM: 05/01/24 0945 THIS REPORT CONTAINS FINDINGS THAT MAY BE CRITICAL TO PATIENT CARE. JESSE Melendrez was notified that the results were available at 9:43 AM [employer]LECT[employer] WORKER on 05/01/2024. She said that she received report, had no questions and did not need a conference call with the radiologist. Laboratory Results WBC 10.05 10^3/uL (3.29-11.43) 05/01/24 09:05 RBC 4.48 10^6/uL (3.85-5.65) 05/01/24 09:05 Hgb 13.80 g/dL (11.27-16.99) 05/01/24 09:05 Hct 42.4 % (37-53) 05/01/24 09:05 MCV 94.6 fl (82-101) 05/01/24 09:05 MCH 30.8 pg (27-33) 05/01/24 09:05 MCHC 32.5 g/dL (30-55) 05/01/24 09:05 RDW 13.5 % (12.1-15.1) 05/01/24 09:05 Plt Count 104 10^3/cmm (157-399) L 05/01/24 09:05 MPV 9.7 fL (7.4-10.4) 05/01/24 09:05 Neut % (Auto) 84.4 % 05/01/24 09:05 Lymph % (Auto) 8.8 % 05/01/24 09:05 [place] % (Auto) 5.4 % 05/01/24 09:05 Eos % (Auto) 0.3 % 05/01/24 09:05 Baso % (Auto) 0.1 % 05/01/24 09:05 Neut # (Auto) 8.49 10^3/uL (1.8-7.7) H 05/01/24 09:05 Lymph # (Auto) 0.9 10^3/uL (0.8-4.8) 05/01/24 09:05 [place] # (Auto) 0.5 10^3/uL (0.2-0.9) 05/01/24 09:05 Eos # (Auto) 0.0 10^3/uL (0.0-0.8) 05/01/24 09:05 Baso # (Auto) 0.0 10^3/uL (0.0-0.1) 05/01/24 09:05 Nucleated RBC % (auto) 0 % 05/01/24 09:05 Nucleated RBCs # 0.0 /100WBC 05/01/24 09:05 Sodium 136 mmol/L (136-145) 05/01/24 09:05 Potassium 5.7 mmol/L (3.5-5.1) H 05/01/24 09:05 Chloride 98 mmol/L (98-107) 05/01/24 09:05 Carbon Dioxide 29 mmol/L (22-29) 05/01/24 09:05 Anion Gap 14.7 (5-19) 05/01/24 09:05 BUN 51 mg/dL (8-23) H 05/01/24 09:05 Creatinine 2.2 mg/dL (0.7-1.2) H 05/01/24 09:05 GFR Calculation Not Reportable 05/01/24 09:05 Glucose 83 mg/dL (65-115) 05/01/24 09:05 POC Glucose 70 mg/dL (70-110) 05/01/24 09:14 Calculated Osmolality 295 mOsm/kg (285-295) 05/01/24 09:05 Calcium 8.3 mg/dL (8.5-10.5) L 05/01/24 09:05 Magnesium 1.5 mg/dL (1.7-2.3) L 05/01/24 09:05 Total Bilirubin 1.4 mg/dL (0.15-1.2) H 05/01/24 09:05 AST 39 U/L (0-40) 05/01/24 09:05 ALT 33 U/L (0-41) 05/01/24 09:05 Alkaline Phosphatase 52 U/L (40-130) 05/01/24 09:05 Total Protein 5.5 g/dL (6.6-8.7) L 05/01/24 09:05 Albumin 3.7 g/dL (3.5-5.2) 05/01/24 09:05 Globulin 1.8 g/dL (1.3-4.6) 05/01/24 09:05 TSH 3.92 uIU/mL (0.27-4.20) 05/01/24 09:05 Urine Color Dark yellow (Yellow) A 05/01/24 10:23 Urine Appearance Clear (CLEAR) 05/01/24 10:23 Urine pH 5.5 (5-7) 05/01/24 10:23 Ur Specific [place] 1.019 (1.005-1.030) 05/01/24 10:23 Urine Protein 1+ (Negative) A 05/01/24 10:23 Urine Glucose (UA) Negative (Normal) 05/01/24 10:23 Urine Ketones 1+ (Negative) H 05/01/24 10:23 Urine Blood Negative (Negative) 05/01/24 10:23 Urine Nitrate Negative (Negative) 05/01/24 10:23 Urine Bilirubin Negative (Negative) 05/01/24 10:23 Urine Urobilinogen 1.0 mg/dL (Negative) 05/01/24 10:23 Ur Leukocyte Esterase Trace (Negative) A 05/01/24 10:23 Urine RBC 0-2 /hpf (0-2) 05/01/24 10:23 Urine WBC 0-5 /hpf (0-5) 05/01/24 10:23 Ur Squamous Epith Cells 0-5 /hpf (0-5) 05/01/24 10:23 Amorphous Sediment Not Reportable 05/01/24 10:23 Urine Bacteria None seen /hpf (NONE) 05/01/24 10:23 Hyaline Casts 8.26 /lpf 05/01/24 10:23 Urine Mucus 2+ /hpf 05/01/24 10:23 Coronavirus (PCR) Negative (Negative) 05/01/24 09:16 Influenza A (PCR) Negative (Negative) 05/01/24 09:16 Influenza Type B (PCR) Negative (Negative) 05/01/24 09:16 RSV (PCR) Negative (Negative) 05/01/24 09:16 All radiology interpretation(s) finalized by discharge Discharge Plan Discharge Patient Disposition: Placed in Observation Clinical Impression: Hyperkalemia, Hypomagnesemia, Acute kidney injury, Metastatic melanoma, Generalized weakness Coding Level of Care Code ED Services Advisor for Chg Fwd Related Data Home Medications Medication Instructions Recorded Confirmed albuterol sulfate 90 mcg/actuation 2 puff inhalation Q6H 10/13/23 05/01/24 aerosol inhaler allopurinol 100 mg tablet 100 mg PO BID 05/01/24 05/01/24 dexamethasone 4 mg tablet 2 mg PO DAILY 05/01/24 05/01/24 Previous Rx's Medication Instructions Recorded levothyroxine 100 mcg tablet 100 mcg PO 0600 #30 tabs 04/07/24 (Levoxyl) dabrafenib 75 mg capsule (Tafinlar) 150 mg (2 x 75 mg) PO BID #120 caps 04/21/24 trametinib 2 mg tablet (Mekinist) 2 mg PO DAILY #30 tabs 04/21/24 spironolactone 50 mg tablet 50 mg PO QAM #90 tabs 04/27/24 (Aldactone) carvedilol 25 mg tablet 25 mg PO DAILY #30 tabs 04/29/24 levetiracetam 500 mg tablet 500 mg PO BID #60 tabs 04/29/24 (Keppra) Allergies Allergy/AdvReac Type Severity Reaction Status Date / Time No Known Allergies Allergy Verified 04/29/24 08:12
--- NOTE | 2024-05-01 09:03 | CTR_ITS ---
PROCEDURE INFORMATION: Exam: CT Head Without Contrast Exam date and time: 05/01/2024 9:23 AM Age: 78 years old Clinical indication: Stroke-like symptoms; Altered mental status/memory loss and drowsines/somnolence; Additional info: Confusion; Weakness TECHNIQUE: Imaging protocol: Computed tomography of the head without contrast. Radiation optimization: All CT scans at this facility use at least one of these dose optimization techniques: automated exposure control; mA and/or kV adjustment per patient size (includes targeted exams where dose is matched to clinical indication); or iterative reconstruction. Other technique: STROKE PROTOCOL was implemented. COMPARISON: 1. MR head wo/w con [id number] 04/06/2024 2:[address] head wo con* [id number] 04/06/2024 10:21 AM RADIATION DOSE METRICS: Total DLP (mGy-cm): 1068.38 FINDINGS: Brain: Again noted are multiple hyperdense metastatic lesions in the brain which are previously identified on CT and MR scan. They are in similar distribution to the previous examination. They have decreased in size since previous study. The largest is in the right superior parietal region which now measures 19 mm in diameter when it previously measured 21.7 mm. There is surrounding vasogenic edema around these lesions but the edema has decreased since previous examination. No new metastatic lesions are seen. No acute hemorrhage is seen in the brain. Cerebral ventricles: No ventriculomegaly. Paranasal sinuses: Visualized sinuses are unremarkable. No fluid levels. Mastoid air cells: Visualized mastoid air cells are well aerated. Bones: Unremarkable. No acute fracture. Soft tissues: Unremarkable. CT/CT head wo con* [id number] IMPRESSION: Again noted are multiple metastatic lesions in the brain which were identified on previous scans. They have mildly decreased in size in the adjacent edema has diminished. No new abnormalities are seen in the brain. ASSESSMENT: ASPECTS ([place] Stroke Program Early CT Score) is 10.
[2024-05-01 09:11] LABS: Basophils % 0.1 %; Eosinophils % 0.3 %; Hematocrit 42.4 % (37-53); Lymphocytes # 0.9 10^3/uL (0.8-4.8); Lymphocytes % 8.8 %; Mean Corpuscular HGB Conc 32.5 g/dL (30-55); Mean Corpuscular Hemoglobin 30.8 pg (27-33); Mean Corpuscular Volume 94.6 fl (82-101); Mean Platelet Volume 9.7 fL (7.4-10.4); Monocytes # 0.5 10^3/uL (0.2-0.9); Monocytes % 5.4 %; Neutrophils # 8.49 10^3/uL (1.8-7.7); Neutrophils % 84.4 %; Nucleated Red Blood Cells % 0 %; Platelet Count 104 10^3/cmm (157-399); Red Blood Count 4.48 10^6/uL (3.85-5.65); Red Cell Distribution Width 13.5 % (12.1-15.1); White Blood Count 10.05 10^3/uL (3.29-11.43)
[2024-05-01] MEDS: sodium chloride 0.9% 1,000 ML 999 ML IV (09:13)
[2024-05-01 09:19] LABS: Glucose Point of Care 70 mg/dL (70-110)
[2024-05-01 09:43] LABS: Alanine Aminotransferase 33 U/L (0-41); Albumin Level 3.7 g/dL (3.5-5.2); Alkaline Phosphatase 52 U/L (40-130); Anion Gap 14.7 (5-19); Aspartate Amino Transferase 39 U/L (0-40); Blood Urea Nitrogen 51 mg/dL (8-23); Calcium 8.3 mg/dL (8.5-10.5); Carbon Dioxide 29 mmol/L (22-29); Chloride 98 mmol/L (98-107); Creatinine Clr Calc Pharmacy 31.1212; Globulin 1.8 g/dL (1.3-4.6); Glucose 83 mg/dL (65-115); Magnesium 1.5 mg/dL (1.7-2.3); Osmolality Calculated 295 mOsm/kg (285-295); Potassium 5.7 mmol/L (3.5-5.1); Sodium 136 mmol/L (136-145); Thyroid Stimulating Hormone 3.92 uIU/mL (0.27-4.20); Total Bilirubin 1.4 mg/dL (0.15-1.2); Total Protein 5.5 g/dL (6.6-8.7)
[2024-05-01 10:01] LABS: Covid PCR NEGATIVE (Negative); Influenza A NEGATIVE (Negative); Influenza B NEGATIVE (Negative); Respiratory Syncytial Virus Ce NEGATIVE (Negative)
[2024-05-01 10:28] LABS: Bilirubin Urine Negative (Negative); Blood Urine Negative (Negative); Glucose Urine UA Negative (Normal); Ketones Urine 1+ (Negative); Leukocyte Esterase Urine Trace (Negative); Nitrate Urine Negative (Negative); Protein Urine 1+ (Negative); Specific Gravity, Urine 1.019 (1.005-1.030); Urine Appearance Clear (CLEAR); Urine Color Dark Yellow (Yellow); pH Urine 5.5 (5-7)
[2024-05-01 10:33] LABS: Add Urine Microscopic? YES; Bacteria Urine None Seen /hpf; Hyaline Casts Urine 8.26 /lpf; RBC Urine 0-2 /hpf (0-2); Squamous Epithelial Cell Urine 0-5 /hpf (0-5); WBC Urine 0-5 /hpf (0-5)
[2024-05-01 10:55] LABS: Mucus Urine 2+ /hpf; UA Slide Review UA Slide Review Perf
[2024-05-01] MEDS: sodium polystyrene sulfonate 15 gm/60 mL Btl PO (11:02)
[2024-05-01] MEDS: magnesium sulfate premix 4 GM/100 ML PREMIX IV (11:13)
[2024-05-01] MEDS: sodium chloride 0.9% 500 ML 999 ML IV (11:14)
--- NOTE | 2024-05-01 12:08 | P.HP_ITS ---
Providers/Chief Complaint 2 Primary Care Provider: Elayne Sims DO Chief Complaint: general weakness History of Present Illness Kush Dodd is a 78 year old male with a past medical history significant for metastatic melanoma with recent brain mets status post radiation treatment, hypothyroidism, congestive heart failure, multiple other comorbidities who presents to the emergency department generalized malaise and weakness x 1 day. Upon assessment, patient's very lethargic and quickly falls back asleep. He denies fevers, chills, nausea or emesis. His oldest daughter is bedside and provides much collateral information. Patient has metastatic melanoma and was recently found to have brain metastasis several weeks ago. He completed 10 days of radiation treatment. She reports he has been exceptionally weak, very poor oral intake, intermittent confusion and debilitated. She states that her mother, patient spouse, is his caregiver. She is currently at home and sicker self. She is undergoing radiation treatment for lung cancer herself. In the emergency department, labs revealed thrombocytopenia, hyperkalemia, elevated BUN/creatinine, hypomagnesia, and hyperbilirubinemia. Urinalysis showed ketones. Chest x-ray was negative for acute findings. Head CT demonstrated known brain mets with adjacent but diminished edema. Discussed patient's recent trajectory with daughter. She notes that his goals would be to be at home with family in his final days. He was recently prescribed 2 chemo medications which he has not started or picked up yet. We briefly discussed possible hospice evaluation. Review of Systems 2 Narrative: A complete review of systems was obtained and is negative except as stated in HPI. Medications/Allergies Home Medications Medication Instructions Recorded Confirmed Last Taken Type albuterol sulfate 90 mcg/actuation 2 puff inhalation Q6H 10/13/23 05/01/24 Unknown History aerosol inhaler levothyroxine 100 mcg tablet 100 mcg PO 0600 #30 tabs 04/07/24 05/01/24 04/30/24 Rx (Levoxyl) dabrafenib 75 mg capsule (Tafinlar) 150 mg (2 x 75 mg) PO BID #120 caps 04/21/24 05/01/24 Unknown Rx trametinib 2 mg tablet (Mekinist) 2 mg PO DAILY #30 tabs 04/21/24 05/01/24 Unknown Rx spironolactone 50 mg tablet 50 mg PO QAM #90 tabs 01/05/01/24 04/30/24 Rx (Aldactone) carvedilol 25 mg tablet 25 mg PO DAILY #30 tabs 04/29/24 05/01/24 04/30/24 Rx levetiracetam 500 mg tablet 500 mg PO BID #60 tabs 04/29/24 05/01/24 04/30/24 Rx (Keppra) allopurinol 100 mg tablet 100 mg PO BID 05/01/24 05/01/24 04/30/24 History dexamethasone 4 mg tablet 2 mg PO DAILY 05/01/24 05/01/24 04/30/24 History Allergies Allergy/AdvReac Type Severity Reaction Status Date / Time No Known Allergies Allergy Verified 04/29/24 08:12 PFSH Acute 2 PFSH: Medical History Skin cancer, basal cell Bladder cancer COPD (chronic obstructive pulmonary disease) Hypertension Malignant melanoma of back Surgical History History of right knee surgery History of hernia repair Family History Father Melanoma Mother Heart disease Sister Diabetes Social History Smoking and tobacco/nicotine status: former use of tobacco/nicotine Additional social history: He quit smoking 40 to 50 years ago. Vitals/I&O/Wt Last Vital Signs Temp 98.7 F 05/01/24 08:07 Pulse 97 05/01/24 12:03 Resp 20 H 05/01/24 12:03 BP 94/53 05/01/24 12:03 Pulse Ox 92 05/01/24 12:03 O2 Del Method Room Air 05/01/24 11:14 04/30/24 05/01/24 05/01/24 22:59 06:59 14:59 Intake Total 1000 / 1000 Balance 1000 / 1000 Weight last 48 hrs Weight 92.533 kg Physical Exam 2 Narrative: General: Patient is awake. Frail-appearing. Lethargic. Will arouse. Head: Normocephalic. Atraumatic. EOM intact. Dry mucous membranes. Neck: No JVD. Cardiovascular: RRR. No gallops. No murmurs. 1+ pitting edema bilateral lower extremities. Blood pressure soft. Lungs: Clear to auscultation, no use of accessory muscles, no crackles or wheezes. Skin: No jaundice. No rashes. Abdomen: Normal bowel sounds, abdomen soft and nontender. Extremities: No cyanosis or clubbing. Musculoskeletal: No swollen or erythematous joints. Neurological: Moves all 4 extremities. No myoclonus. Data 05/01/24 09:05 05/01/24 09:05 A&P Assessment and plan (1) Hyperkalemia: Status post Kayexalate in the emergency department Status post IV fluids in ED Hold home at, Telemetry monitoring Trend levels (2) Acute kidney injury: Acute kidney injury on suspected CKD Start gentle hydration in the setting of congestive heart failure Strict I's and O's Daily weights Repeat labs tomorrow (3) Hypomagnesemia: Status post mag sulfate in ED Repeat magnesium level in a.m. (4) Heart failure with reduced ejection fraction: Heart failure with reduced ejection fraction not in exacerbation Monitor for worsening fluid retention in the setting of IV fluids Hold home beta-aaliyah due to soft blood pressures Hold Aldactone due to hyperkalemia and PRESTON Daily assessments of volume status (5) Metastatic melanoma: Metastatic melanoma with brain metastasis Status post recent brain radiation Medical oncology records reviewed, has yet to start current medications Patient's daughters notes his goal would be at home not at a facility or hospital Plan for ongoing goals of care and CODE STATUS discussions during this admission (6) Weakness: Optimize electrolytes Therapy evaluation (7) Hypothyroidism: Continue home Synthroid Qualifiers: Hypothyroidism type: acquired Qualified Code(s): E03.9 - Hypothyroidism, unspecified Plan DVT prophylaxis: SCD Attestations 2 Medical Necessity Statement*: Patient presents with severe weakness, found to have multiple metabolic derangement and kidney injury with expected hospitalization not to cross 2 midnights for IV fluid resuscitation, electrolyte management, and supportive care. Coding Level of Care Code Acute Code for Chg Fwd Diagnoses Hyperkalemia E87.5 Acute kidney injury N17.9 Hypomagnesemia E83.42 Heart failure with reduced ejection fraction I50.20 Metastatic melanoma C43.9 Weakness R53.1 Acquired hypothyroidism E03.9 Hypothyroidism type: acquired
[2024-05-01] MEDS: sodium chloride 0.9% 1,000 ML 100 ML IV (14:33)
[2024-05-01] MEDS: allopurinol 100 mg Tablet PO (18:31)
[2024-05-01] MEDS: levETIRAcetam 500 mg Tablet PO (18:31)
[2024-05-01 20:23] LABS: Albumin Level 2.8 g/dL (3.5-5.2); Blood Urea Nitrogen 40 mg/dL (8-23); Calcium 7.4 mg/dL (8.5-10.5); Carbon Dioxide 25 mmol/L (22-29); Chloride 101 mmol/L (98-107); Creatinine Clr Calc Pharmacy 40.2746; Glucose 113 mg/dL (65-115); Phosphorus 2.7 mg/dL (2.5-4.5); Sodium 135 mmol/L (136-145)
[2024-05-01 21:17] LABS: Magnesium 2.1 mg/dL (1.7-2.3)
[2024-05-01] MEDS: nystatin 100,000 unit/mL UDC 5 mL 500000 UNIT PO (21:46)
[2024-05-01] MEDS: carvedilol 25 mg Tablet PO (21:46)
[2024-05-02] VITALS (7 sets, daily range): BP systolic 94–123; BP diastolic 51–74; PULSE 69–97; RESP 15–24; TEMP 36.6–37.7; O2SAT 92–99
[2024-05-02] MEDS: sodium chloride 0.9% 1,000 ML 100 ML IV (01:48)
[2024-05-02 05:31] LABS: Basophils % 0.1 %; Eosinophils # 0.1 10^3/uL (0.0-0.8); Eosinophils % 1.9 %; Hematocrit 32.3 % (37-53); Lymphocytes # 0.8 10^3/uL (0.8-4.8); Lymphocytes % 10.5 %; Mean Corpuscular HGB Conc 32.5 g/dL (30-55); Mean Corpuscular Hemoglobin 31.1 pg (27-33); Mean Corpuscular Volume 95.6 fl (82-101); Mean Platelet Volume 9.4 fL (7.4-10.4); Monocytes # 0.3 10^3/uL (0.2-0.9); Monocytes % 4.5 %; Neutrophils # 6.02 10^3/uL (1.8-7.7); Neutrophils % 82.5 %; Nucleated Red Blood Cells % 0 %; Platelet Count 66 10^3/cmm (157-399); Red Blood Count 3.38 10^6/uL (3.85-5.65); Red Cell Distribution Width 13.4 % (12.1-15.1); White Blood Count 7.31 10^3/uL (3.29-11.43)
[2024-05-02] MEDS: levothyroxine 100 mcg Tablet PO (05:44)
[2024-05-02 06:01] LABS: Alanine Aminotransferase 22 U/L (0-41); Albumin Level 2.6 g/dL (3.5-5.2); Alkaline Phosphatase 37 U/L (40-130); Aspartate Amino Transferase 24 U/L (0-40); Blood Urea Nitrogen 33 mg/dL (8-23); Calcium 7.1 mg/dL (8.5-10.5); Carbon Dioxide 26 mmol/L (22-29); Chloride 101 mmol/L (98-107); Creatinine Clr Calc Pharmacy 45.6445; Globulin 1.7 g/dL (1.3-4.6); Glucose 70 mg/dL (65-115); Magnesium 1.7 mg/dL (1.7-2.3); Osmolality Calculated 286 mOsm/kg (285-295); Phosphorus 2.2 mg/dL (2.5-4.5); Sodium 135 mmol/L (136-145); Total Bilirubin 0.9 mg/dL (0.15-1.2); Total Protein 4.3 g/dL (6.6-8.7)
--- NOTE | 2024-05-02 08:13 | XRR_ITS ---
PROCEDURE INFORMATION: Exam: XR Right Ribs Exam date and time: 05/02/2024 5:13 PM Age: 78 years old Clinical indication: Pain and injury or trauma; Rib area; Blunt trauma (contusions or hematomas); Chest wall pain; Right; RT anterior rib pain post fall TECHNIQUE: Imaging protocol: Radiologic exam of the right ribs. Views: 2 views. COMPARISON: 1. PT PET WB melanoma INITIAL [id number] 02/06/2024 3:[address] [place] [id number] 04/04/2024 9:00 PM FINDINGS: Bones/joints: Subtle cortical step-off in the lateral segment of the right 2nd rib without fracture, likely related to mild anatomical irregularity which was also seen on the referenced CT of the chest. No acute fracture or dislocation. 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 Soft tissues: Normal. XR/XR ribs RT 2V* [id number] IMPRESSION: No acute findings. COMMENTS: Consider follow-up noncontrast chest CT if there is further concern for occult injury.
[2024-05-02] MEDS: allopurinol 100 mg Tablet PO ×2 (08:36→17:50)
[2024-05-02] MEDS: levETIRAcetam 500 mg Tablet PO ×2 (08:36→17:50)
[2024-05-02] MEDS: dexamethasone 4 mg Tablet 2 MG PO (08:36)
[2024-05-02] MEDS: carvedilol 25 mg Tablet PO (08:36)
[2024-05-02] MEDS: nystatin 100,000 unit/mL UDC 5 mL 500000 UNIT PO ×4 (08:37→20:57)
--- NOTE | 2024-05-02 09:59 | P.PN_ITS ---
Subjective 2 Subjective: Patient is more awake and alert today. He describes severe right-sided rib pains. He states that start about a week ago after he fell. He is agreeable to rib x-ray. Denies fevers, chills, nausea or emesis. Discussed lab results and counts. Late in the morning, spouse and multiple family members are bedside. We discussed goals of care moving forward. Discussed various options. Patient's goal is to be at home. He has not started his new line of chemotherapy and they are having second thoughts regarding starting treatment. We did discuss hospice. We discussed the level support hospice can provide. Currently in the home is only the spouse and him. They do have some other family members that can help some. We discussed the services hospice provides and the services that are not provided. She is interesting her more about hospice as this is the way both her, family and patient are leaning. Will plan on case management consult tomorrow. Advance care planning/goals of care was discussed for 20 minutes.\ Vitals/I&O/Wt Last Vital Signs Temp 98.2 F 05/02/24 07:39 Pulse 83 05/02/24 07:39 Resp 24 H 05/02/24 07:39 BP 108/54 05/02/24 07:39 Pulse Ox 96 05/02/24 07:39 O2 Del Method Nasal Cannula 05/02/24 07:39 O2 Flow Rate 2 05/02/24 03:22 05/01/24 05/02/24 05/02/24 22:59 06:59 14:59 Intake Total 200 / 1800 1000 / 2800 Output Total 650 / 650 675 / 1325 Balance -450 / 1150 325 / 1475 Weight last 48 hrs Weight 90.945 kg Weight 90.945 kg Weight 92.533 kg Weight 92.533 kg Physical Exam 2 Narrative: General: Patient is awake. Alert. Pleasant. Head: Normocephalic. Atraumatic. EOM intact. Neck: No JVD. Cardiovascular: RRR. No gallops. No murmurs. 1+ pitting edema bilateral lower extremities, similar to yesterday's exam. Chest: There is a small bruise to the right side of his right nipple. This area is tender to palpation. Lungs: Clear to auscultation, no use of accessory muscles, no crackles or wheezes. Skin: No jaundice. No rashes. Abdomen: Normal bowel sounds, abdomen soft and nontender. Extremities: No cyanosis or clubbing. Musculoskeletal: No swollen or erythematous joints. Neurological: Moves all 4 extremities. No myoclonus. Data 05/02/24 05:15 05/02/24 05:15 A&P Assessment and plan (1) Metastatic melanoma: Metastatic melanoma with brain metastasis Status post recent brain radiation Medical oncology records reviewed, he has not started his current regiment Advance care planning/goals of care discussed with patient and family today, they are strongly leaning towards hospice level of care. They would like more information on hospice. Plan for case management consult on Friday (2) Acute kidney injury: Acute kidney injury on suspected CKD Renal function improving, will discontinue IV fluids in the setting of CHF Encourage oral intake Strict I's and O's Daily weights (3) Heart failure with reduced ejection fraction: Heart failure with reduced ejection fraction not in exacerbation Continue holding beta-aaliyah due to relatively soft blood pressures Hold Aldactone due to recent hyperkalemia and PRESTON Daily assessments of volume status (4) Hypomagnesemia: Status post replacement Monitor levels (5) Weakness: Optimize electrolytes Therapy evaluation (6) Hypothyroidism: Continue home Synthroid Qualifiers: Hypothyroidism type: acquired Qualified Code(s): E03.9 - Hypothyroidism, unspecified (7) Hyperkalemia: Resolved Aldactone held (8) Thrombocytopenia: Platelets downtrending, 66 today Monitor for evidence of bleeding Plan DVT prophylaxis: SCD Attestations 2 Medical Necessity Statement*: Patient requires ongoing hospitalization for electrolyte monitoring, therapy evaluation, further goals of care, case management evaluation. Coding Level of Care Code Acute Code for Chg Fwd Diagnoses Metastatic melanoma C43.9 Acute kidney injury N17.9 Heart failure with reduced ejection fraction I50.20 Hypomagnesemia E83.42 Weakness R53.1 Acquired hypothyroidism E03.9 Hypothyroidism type: acquired Hyperkalemia E87.5 Thrombocytopenia D69.6
[2024-05-02] MEDS: metoprolol tartrate 25 mg Tablet PO (20:57)
[2024-05-03] VITALS (8 sets, daily range): BP systolic 94–133; BP diastolic 60–74; PULSE 65–108; RESP 12–27; TEMP 36.4–36.9; O2SAT 96–98
[2024-05-03 02:33] LABS: Eosinophils % 0.2 %; Hematocrit 32.8 % (37-53); Lymphocytes # 0.3 10^3/uL (0.8-4.8); Lymphocytes % 5.9 %; Mean Corpuscular HGB Conc 32.9 g/dL (30-55); Mean Corpuscular Hemoglobin 31.5 pg (27-33); Mean Corpuscular Volume 95.6 fl (82-101); Mean Platelet Volume 9.9 fL (7.4-10.4); Monocytes # 0.2 10^3/uL (0.2-0.9); Monocytes % 3.3 %; Neutrophils # 5.15 10^3/uL (1.8-7.7); Neutrophils % 89.9 %; Nucleated Red Blood Cells % 0 %; Platelet Count 71 10^3/cmm (157-399); Red Blood Count 3.43 10^6/uL (3.85-5.65); Red Cell Distribution Width 13.2 % (12.1-15.1); White Blood Count 5.73 10^3/uL (3.29-11.43)
[2024-05-03 02:58] LABS: Albumin Level 2.7 g/dL (3.5-5.2); Blood Urea Nitrogen 27 mg/dL (8-23); Calcium 7.6 mg/dL (8.5-10.5); Carbon Dioxide 27 mmol/L (22-29); Chloride 98 mmol/L (98-107); Creatinine Clr Calc Pharmacy 52.2528; Glucose 214 mg/dL (65-115); Magnesium 1.6 mg/dL (1.7-2.3); Phosphorus 2.8 mg/dL (2.5-4.5); Sodium 133 mmol/L (136-145)
[2024-05-03] MEDS: levothyroxine 100 mcg Tablet PO (06:01)
[2024-05-03] MEDS: nystatin 100,000 unit/mL UDC 5 mL 500000 UNIT PO ×4 (09:24→21:03)
[2024-05-03] MEDS: metoprolol tartrate 25 mg Tablet PO ×2 (09:25→21:00)
[2024-05-03] MEDS: dexamethasone 4 mg Tablet 2 MG PO (09:25)
[2024-05-03] MEDS: allopurinol 100 mg Tablet PO ×2 (09:25→17:46)
[2024-05-03] MEDS: levETIRAcetam 500 mg Tablet PO ×2 (09:25→17:46)
--- NOTE | 2024-05-03 14:13 | CT_ITS ---
WS: [id number] CT CHEST ANGIOGRAPHY WITH REFORMATS HISTORY: hypoxia TECHNIQUE: Contiguous axial images are obtained through the chest during arterial injection of intrav enous contrast. Images are reconstructed to evaluate the pulmonary arteries. MIP imaging also reviewe d. All CT scans at [facility] use at least one of these dose optimization techniques: automat ed exposure control; mA and/or kV adjustment per patient size (includes targeted exams where dose is matched to clinical indication); or iterative reconstruction. CONTRAST: Omnipaque 350; 100 mL IV. DLP: 493.84 mGy.cm COMPARISON: 04/04/2024 Good opacification of the pulmonary artery. No filling defect or pulmonary embolism. No RIGHT heart s train. Mild LEFT heart enlargement. Mild atherosclerosis aorta with no aneurysm. Multifocal areas of groundglass attenuation in the upper and lower lung andres with more focal consol idations at the lung bases. These findings have progressed since the prior study of 04/04/2024. Small b ilateral pleural effusions. No adenopathy. Several small mediastinal and hilar and axillary lymph nod es but these are not pathologically enlarged. No adrenal mass. Visualized liver is normal. Stomach is markedly distended with fluid. Thoracic spond ylosis. CT/CT angio chest PE protcl [id number] IMPRESSION: 1. No pulmonary embolism. 2. New multifocal focal areas of groundglass attenuation in the upper and lowe r lung andres with increasing consolidations at the lung bases. Consider hypers ensitivity pneumonia, pneumonitis and pulmonary emboli as possible etiologies. Consolidations at the lung bases are more likely atelectasis. 3. Mild LEFT heart enlargement. 4. Very tiny bilateral pleural effusions.
--- NOTE | 2024-05-03 14:15 | P.PN_ITS ---
Subjective 2 Subjective: Patient and family have not yet decided if they want to transition to hospice. They are still interested in getting therapy which would not be a possibility on hospice. Patient was evaluated by physical therapy today and it appears he became hypoxic with saturation dropping in the 70s while attempting to get out of bed. Medications: Reviewed: Yes Vitals/I&O/Wt Last Vital Signs Temp 98.4 F 05/03/24 11:29 Pulse 89 05/03/24 11:29 Resp 17 05/03/24 11:29 BP 117/71 05/03/24 11:29 Pulse Ox 96 05/03/24 11:29 O2 Del Method Room Air 05/03/24 11:29 O2 Flow Rate 2 05/02/24 03:22 05/02/24 05/03/24 05/03/24 22:59 06:59 14:59 Intake Total 240 / 240 Output Total 1550 / 1550 900 / 2450 350 / 350 Balance -1550 / -70 -900 / -970 -110 / -110 Weight last 48 hrs Weight 92.76 kg Weight 92.76 kg Weight 90.945 kg Weight 90.945 kg Weight 92.533 kg Physical Exam 2 Narrative: General: No acute distress, AO x3 HEENT: PERRLA, pupils bilaterally equal and reactive, pallors not present Chest: Normal vesicular breath sounds, no added sounds, equal good air entry bilaterally CVS: S1-S2 regular, no murmurs, no tachycardia, no gallops, no rubs Abdomen: Soft, nontender, no organomegaly, bowel sounds present Neuro: No focal deficits, no facial deformity, AO x3, power 5/5 in all limbs Data 05/03/24 02:05 05/03/24 02:05 A&P Assessment and plan (1) Metastatic melanoma: Metastatic melanoma with brain metastasis Status post recent brain radiation Medical oncology records reviewed, he has not started his current regiment Advance care planning/goals of care discussed with patient and family today, they are strongly leaning towards hospice level of care. They would like more information on hospice. Plan for case management consult on Friday (2) Acute kidney injury: Acute kidney injury on suspected CKD Renal function improving, will discontinue IV fluids in the setting of CHF Encourage oral intake Strict I's and O's Daily weights (3) Heart failure with reduced ejection fraction: Heart failure with reduced ejection fraction not in exacerbation Continue holding beta-aaliyah due to relatively soft blood pressures Hold Aldactone due to recent hyperkalemia and PRESTON Daily assessments of volume status (4) Hypomagnesemia: Status post replacement Monitor levels (5) Weakness: Optimize electrolytes Therapy evaluation (6) Hypothyroidism: Continue home Synthroid Qualifiers: Hypothyroidism type: acquired Qualified Code(s): E03.9 - Hypothyroidism, unspecified (7) Hyperkalemia: Resolved Aldactone held (8) Thrombocytopenia: Platelets downtrending, 66 today Monitor for evidence of bleeding Plan DVT prophylaxis: SCD May 03, 2024. Patient is not yet decided if he would like to transition to hospice. Him and his family want to participate with skilled physical therapy to see if he may get a little bit stronger. He has decided not to undergo any further chemotherapy however seems to be struggling with this decision. He would like some more time to decide. In the interim physical therapy assessment was ordered for today. While being evaluated patient O2 sat dropped to 70s. He is high risk of having a PE given his underlying malignancy. Will check CTA to evaluate for the same. Attestations 2 Medical Necessity Statement*: GOC discussion, CTA to evaluate for PE Coding Level of Care Code Acute Code for Chg Fwd Moderate MDM includes number and complexity of problems actively addressed during encounter, amount and/or complexity of data reviewed/ordered and described risk of complication, morbidity or mortality of management as documented Diagnoses Metastatic melanoma C43.9 Acute kidney injury N17.9 Heart failure with reduced ejection fraction I50.20 Hypomagnesemia E83.42 Weakness R53.1 Acquired hypothyroidism E03.9 Hypothyroidism type: acquired Hyperkalemia E87.5 Thrombocytopenia D69.6
[2024-05-03] MEDS: iohexol 350 mg/mL 500 mL Btl (per mL) IV (14:45)
[2024-05-04 00:07] VITALS: BP 127/75; PULSE 89; RESP 22; TEMP 36.8; O2SAT 98
--- NOTE | 2024-05-04 00:27 | PC.NURSE ---
messaged regarding patient with no am labs ordered but has been having frequent PVC and runs of vtach. said order CBC, BMP, and mag for morning.
[2024-05-04 05:34] LABS: Basophils % 0.1 %; Eosinophils # 0.1 10^3/uL (0.0-0.8); Eosinophils % 0.8 %; Hematocrit 32.3 % (37-53); Lymphocytes # 0.4 10^3/uL (0.8-4.8); Lymphocytes % 5.3 %; Mean Corpuscular HGB Conc 33.1 g/dL (30-55); Mean Corpuscular Hemoglobin 30.9 pg (27-33); Mean Corpuscular Volume 93.4 fl (82-101); Mean Platelet Volume 10.2 fL (7.4-10.4); Monocytes # 0.3 10^3/uL (0.2-0.9); Monocytes % 4.2 %; Neutrophils # 7.05 10^3/uL (1.8-7.7); Neutrophils % 89.1 %; Nucleated Red Blood Cells % 0 %; Platelet Count 102 10^3/cmm (157-399); Red Blood Count 3.46 10^6/uL (3.85-5.65); Red Cell Distribution Width 13.2 % (12.1-15.1); White Blood Count 7.91 10^3/uL (3.29-11.43)
[2024-05-04 05:50] LABS: Anion Gap 11.9 (5-19); Blood Urea Nitrogen 25 mg/dL (8-23); Calcium 8.1 mg/dL (8.5-10.5); Carbon Dioxide 29 mmol/L (22-29); Chloride 100 mmol/L (98-107); Creatinine Clr Calc Pharmacy 68.5437; Glucose 183 mg/dL (65-115); Magnesium 1.4 mg/dL (1.7-2.3); Osmolality Calculated 291 mOsm/kg (285-295); Potassium 4.9 mmol/L (3.5-5.1); Sodium 136 mmol/L (136-145)
[2024-05-04 06:00] VITALS: BMI 28.7
[2024-05-04 06:22] VITALS: BP 112/78; PULSE 90; RESP 21; TEMP 36.6; O2SAT 98
[2024-05-04] MEDS: levothyroxine 100 mcg Tablet PO (06:23)
[2024-05-04 07:20] LABS: Levetiracetam Immunoassy 13.6 mcg/mL (6.0-46.0)
[2024-05-04 08:00] VITALS: BP 114/68; PULSE 90; RESP 26; TEMP 36.9; O2SAT 96
[2024-05-04] MEDS: nystatin 100,000 unit/mL UDC 5 mL 500000 UNIT PO (09:03)
[2024-05-04] MEDS: levETIRAcetam 500 mg Tablet PO (09:03)
[2024-05-04] MEDS: allopurinol 100 mg Tablet PO (09:03)
[2024-05-04] MEDS: metoprolol tartrate 25 mg Tablet PO (09:03)
[2024-05-04] MEDS: predniSONE 20 mg Tablet 40 MG PO (11:23)
[2024-05-04 11:55] VITALS: O2SAT 86; O2SAT 91
[2024-05-04 12:00] VITALS: BP 100/67; PULSE 95; RESP 28; TEMP 36.8; O2SAT 98
[2024-05-04 13:23] VITALS: BP 108/67; PULSE 95; RESP 23; TEMP 37; O2SAT 96
--- NOTE | 2024-05-04 15:34 | P.DS_ITS ---
Discharge Providers Date of Admission: 05/02/24 19:03 Date of Discharge: May 04, 2024 Attending Provider at Admission: Uzair Albarran MD Attending Provider at Discharge: Carley Elliott MD Primary Care Provider: Elayne Sims DO Diagnoses at Discharge Discharge Diagnosis (1) Metastatic melanoma: Status: Acute (2) Acute kidney injury: Status: Acute (3) Heart failure with reduced ejection fraction: Status: Acute (4) Hypomagnesemia: Status: Acute (5) Weakness: Status: Acute (6) Hypothyroidism: Status: Acute Qualifiers: Hypothyroidism type: acquired Qualified Code(s): E03.9 - Hypothyroidism, unspecified (7) Hyperkalemia: Status: Acute (8) Thrombocytopenia: Status: Acute Reason for Visit Reason for Visit: general weakness Hospital Course Hospital Course 70-year-old male with 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 He has recently been admitted for acute diverticulitis.. Nivolumab has been stopped as of early March 2024 due to progressive disease in spite of treatment. Patient was planned to be started on Dabrafenib and Trametinib but once reports that patient is no longer interested in continuing chemotherapy. He has decided not to pursue further treatment as of now. He was brought to the emergency room on May 01, 2024 for generalized malaise and weakness. He states he was so weak that he was unable to get out of bed. He has recently completed 10 days of radiation treatment For brain metastases. Patient had also been having very poor oral intake, intermittent confusion at home. In the ER labs revealed thrombocytopenia, hypokalemia, PRESTON with elevated creatinine, hypomagnesemia and hyperbilirubinemia. While in the hospital he was noted to have desaturation with O2 sats Dropping in the 70s on May 03, 2024. Due to concern for pulmonary embolism, CTA of the chest was obtained which was negative for any PE however did show bilateral pneumonitis. 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 Patient has been started on a prednisone taper. Additionally added pneumocystis pneumonia prophylaxis with Bactrim 1 tab DS Friday and Friday. Initially patient and his family had considered transitioning to hospice, how ever currently family states that they would like him to be a little stronger after working with therapy before taking any final decisions regarding transitioning to hospice. He was evaluated by physical therapy. He exhibited decreased endurance and decreased strength. He would likely benefit from short- term therapy to improve balance strength and mobility. He has been transitioned to SNF for the same. Patient was on carvedilol for history of heart failure, this has been transitioned to metoprolol at the time of discharge as better tolerated by blood pressure. Home dose of Aldactone has been discontinued due to hypotension hyperkalemia and PRESTON. Physical Exam Narrative: General: No acute distress, AO x3 HEENT: PERRLA, pupils bilaterally equal and reactive, pallors not present Chest: Normal vesicular breath sounds, no added sounds, equal good air entry bilaterally CVS: S1-S2 regular, no murmurs, no tachycardia, no gallops, no rubs Abdomen: Soft, nontender, no organomegaly, bowel sounds present Neuro: No focal deficits, no facial deformity, AO x3, power 5/5 in all limbs Discharge Data Studies Completed and Pending Completed Studies During Hospitalization Category Date Time Status CT head wo con* [id number] Stat Cat Scan 05/01/24 09:03 Completed CTA PE [CT angio chest PE protcl [id number]] Routine Cat Scan 05/03/24 14:13 Completed XR chest 1V portable [id number] Stat Exams 05/01/24 08:52 Completed XR ribs RT 2V* [id number] Routine Exams 05/02/24 08:13 Completed Pending at discharge Category Date Time Status COVID OZH [Coronavirus PCR] Routine Lab 05/04/24 13:49 Received Radiology Impressions Chest X-Ray 05/01/24 08:52 IMPRESSION: No acute findings. Head CT 05/01/24 09:03 IMPRESSION: Again noted are multiple metastatic lesions in the brain which were identified on previous scans. They have mildly decreased in size in the adjacent edema has diminished. No new abnormalities are seen in the brain. ASSESSMENT: ASPECTS ([place] Stroke Program Early CT Score) is 10. ADDENDUM: 05/01/24 0945 THIS REPORT CONTAINS FINDINGS THAT MAY BE CRITICAL TO PATIENT CARE. JESSE Melendrez was notified that the results were available at 9:43 AM SOFTWARE INTEGRATOR on 05/01/2024. She said that she received report, had no questions and did not need a conference call with the radiologist. Ribs X-Ray 05/02/24 08:13 IMPRESSION: No acute findings. COMMENTS: Consider follow-up noncontrast chest CT if there is further concern for occult injury. Chest CTA 05/03/24 14:13 IMPRESSION: 1. No pulmonary embolism. 2. New multifocal focal areas of groundglass attenuation in the upper and lower lung andres with increasing consolidations at the lung bases. Consider hypersensitivity pneumonia, pneumonitis and pulmonary emboli as possible etiologies. Consolidations at the lung bases are more likely atelectasis. 3. Mild LEFT heart enlargement. 4. Very tiny bilateral pleural effusions. Laboratory Results WBC 7.91 10^3/uL (3.29-11.43) 05/04/24 02:28 RBC 3.46 10^6/uL (3.85-5.65) L 05/04/24 02:28 Hgb 10.70 g/dL (11.27-16.99) L 05/04/24 02:28 Hct 32.3 % (37-53) L 05/04/24 02:28 MCV 93.4 fl (82-101) 05/04/24 02:28 MCH 30.9 pg (27-33) 05/04/24 02:28 MCHC 33.1 g/dL (30-55) 05/04/24 02:28 RDW 13.2 % (12.1-15.1) 05/04/24 02:28 Plt Count 102 10^3/cmm (157-399) L D 05/04/24 02:28 MPV 10.2 fL (7.4-10.4) 05/04/24 02:28 Neut % (Auto) 89.1 % 05/04/24 02:28 Lymph % (Auto) 5.3 % 05/04/24 02:28 [place] % (Auto) 4.2 % 05/04/24 02:28 Eos % (Auto) 0.8 % 05/04/24 02:28 Baso % (Auto) 0.1 % 05/04/24 02:28 Neut # (Auto) 7.05 10^3/uL (1.8-7.7) 05/04/24 02:28 Lymph # (Auto) 0.4 10^3/uL (0.8-4.8) L 05/04/24 02:28 [place] # (Auto) 0.3 10^3/uL (0.2-0.9) 05/04/24 02:28 Eos # (Auto) 0.1 10^3/uL (0.0-0.8) 05/04/24 02:28 Baso # (Auto) 0.0 10^3/uL (0.0-0.1) 05/04/24 02:28 Nucleated RBC % (auto) 0 % 05/04/24 02:28 Nucleated RBCs # 0.0 /100WBC 05/04/24 02:28 Sodium 136 mmol/L (136-145) 05/04/24 02:28 Potassium 4.9 mmol/L (3.5-5.1) 05/04/24 02:28 Chloride 100 mmol/L (98-107) 05/04/24 02:28 Carbon Dioxide 29 mmol/L (22-29) 05/04/24 02:28 Anion Gap 11.9 (5-19) 05/04/24 02:28 BUN 25 mg/dL (8-23) H 05/04/24 02:28 Creatinine 1.0 mg/dL (0.7-1.2) 05/04/24 02:28 GFR Calculation Not Reportable 05/04/24 02:28 Glucose 183 mg/dL (65-115) H 05/04/24 02:28 POC Glucose 70 mg/dL (70-110) 05/01/24 09:14 Calculated Osmolality 291 mOsm/kg (285-295) 05/04/24 02:28 Calcium 8.1 mg/dL (8.5-10.5) L 05/04/24 02:28 Phosphorus 2.8 mg/dL (2.5-4.5) 05/03/24 02:05 Magnesium 1.4 mg/dL (1.7-2.3) L 05/04/24 02:28 Total Bilirubin 0.9 mg/dL (0.15-1.2) 05/02/24 05:15 AST 24 U/L (0-40) 05/02/24 05:15 ALT 22 U/L (0-41) 05/02/24 05:15 Alkaline Phosphatase 37 U/L (40-130) L 05/02/24 05:15 Total Protein 4.3 g/dL (6.6-8.7) L D 05/02/24 05:15 Albumin 2.7 g/dL (3.5-5.2) L 05/03/24 02:05 Globulin 1.7 g/dL (1.3-4.6) 05/02/24 05:15 TSH 3.92 uIU/mL (0.27-4.20) 05/01/24 09:05 Urine Color Dark yellow (Yellow) A 05/01/24 10:23 Urine Appearance Clear (CLEAR) 05/01/24 10:23 Urine pH 5.5 (5-7) 05/01/24 10:23 Ur Specific [place] 1.019 (1.005-1.030) 05/01/24 10:23 Urine Protein 1+ (Negative) A 05/01/24 10:23 Urine Glucose (UA) Negative (Normal) 05/01/24 10:23 Urine Ketones 1+ (Negative) H 05/01/24 10:23 Urine Blood Negative (Negative) 05/01/24 10:23 Urine Nitrate Negative (Negative) 05/01/24 10:23 Urine Bilirubin Negative (Negative) 05/01/24 10:23 Urine Urobilinogen 1.0 mg/dL (Negative) 05/01/24 10:23 Ur Leukocyte Esterase Trace (Negative) A 05/01/24 10:23 Urine RBC 0-2 /hpf (0-2) 05/01/24 10:23 Urine WBC 0-5 /hpf (0-5) 05/01/24 10:23 Ur Squamous Epith Cells 0-5 /hpf (0-5) 05/01/24 10:23 Amorphous Sediment Not Reportable 05/01/24 10:23 Urine Bacteria None seen /hpf (NONE) 05/01/24 10:23 Hyaline Casts 8.26 /lpf 05/01/24 10:23 Urine Mucus 2+ /hpf 05/01/24 10:23 Levetiracetam 13.6 mcg/mL (6.0-46.0) 05/01/24 09:05 Coronavirus (PCR) Negative (Negative) 05/01/24 09:16 Influenza A (PCR) Negative (Negative) 05/01/24 09:16 Influenza Type B (PCR) Negative (Negative) 05/01/24 09:16 RSV (PCR) Negative (Negative) 05/01/24 09:16 Vitals Last Vital Signs Temp 98.6 F 05/04/24 13:23 Pulse 95 05/04/24 13:23 Resp 23 H 05/04/24 13:23 BP 108/67 05/04/24 13:23 Pulse Ox 96 05/04/24 13:23 O2 Del Method Nasal Cannula 05/04/24 12:00 O2 Flow Rate 2 05/04/24 12:00 Discharge Plan Discharge Patient Disposition: Xfer SNF Condition: Stable Prescriptions: New nystatin 100,000 unit/mL Suspension 500,000 unit PO QID 30 Days Qty: 600 0RF metoprolol tartrate 25 mg Tablet 25 mg PO BID@0900,2100 30 Days Qty: 60 0RF prednisone 10 mg tablet See Taper PO BID Qty: 42 0RF Taper: predniSONE 60-10 60 mg Daily for 2 Days and 0 Hour 50 mg Daily for 2 Days and 0 Hour 40 mg Daily for 2 Days and 0 Hour 30 mg Daily for 2 Days and 0 Hour 20 mg Daily for 2 Days and 0 Hour 10 mg Daily for 2 Days and 0 Hour pantoprazole [Protonix] 40 mg tablet,delayed release (DR/EC) 40 mg PO DAILY 28 Days Qty: 30 0RF sulfamethoxazole-trimethoprim [Bactrim DS] 800-160 mg tablet 1 tab PO .mowefri 30 Days Qty: 10 0RF Rx Instructions: 1 tab orally on mon, wed, fri, dicontinue once off steroids Continued albuterol sulfate 90 mcg/actuation HFA aerosol inhaler 2 puff inhalation Q6H levetiracetam [Keppra] 500 mg tablet 500 mg PO BID Qty: 60 2RF levothyroxine [Levoxyl] 100 mcg Tablet 100 mcg PO 0600 Qty: 30 0RF allopurinol 100 mg tablet 100 mg PO BID Discontinued carvedilol 25 mg tablet 25 mg PO DAILY Qty: 30 0RF Mekinist 2 mg tablet 2 mg PO DAILY Qty: 30 11RF Rx Instructions: must be taken on empty stomach, at least 1 hr before or 2-3 hrs after meal/food Tafinlar 75 mg capsule 150 mg PO BID Qty: 120 11RF Rx Instructions: 2 capsules (total 150 Mg dose) by mouth twice a day 12 hours apart spironolactone [Aldactone] 50 mg tablet 50 mg PO QAM Qty: 90 0RF dexamethasone 4 mg tablet 2 mg PO DAILY Discharge Orders: Discharge Order (Routine); Ordered 05/04/24 Ordered By: Carley Elliott [facility]] Elayne Sims DO [Primary Care Provider] - 05/07/24 11:00 am Discharge Diet: Usual diet Discharge Activity: Resume usual activity Patient Instructions: Heart Failure (DC), Narcotic Safety (DC), Thrombocytopenia (DC) Discharge Attestations Time Spent in Discharge Care*: greater than 30 min Quality Metrics Clinical Quality Measures [ No reported AMI, CVA or VTE this stay] Coding Level of Care Code Acute Code for Chg Fwd Diagnoses Metastatic melanoma C43.9 Acute kidney injury N17.9 Heart failure with reduced ejection fraction I50.20 Hypomagnesemia E83.42 Weakness R53.1 Acquired hypothyroidism E03.9 Hypothyroidism type: acquired Hyperkalemia E87.5 Thrombocytopenia D69.6
[2024-05-04 16:21] LABS: Adenovirus Not Detected (NOT DETECT); Chlamydia Pneumoniae Not Detected (NOT DETECT); Coronavirus 229E,HKU1,NL63,OC4 Not Detected (NOT DETECT); Human Metapneumovirus Not Detected (NOT DETECT); Human Rhinovirus/Enterovirus Not Detected (NOT DETECT); Influenza A Not Detected (NOT DETECT); Influenza A H1 Not Detected (NOT DETECT); Influenza A H1-2009 Not Detected (NOT DETECT); Influenza A H3 Not Detected (NOT DETECT); Influenza B Not Detected (NOT DETECT); Mycoplasma Pneumoniae Not Detected (NOT DETECT); Parainfluenza Virus Type 1 Not Detected (NOT DETECT); Parainfluenza Virus Type 2 Not Detected (NOT DETECT); Parainfluenza Virus Type 3 Not Detected (NOT DETECT); Parainfluenza Virus Type 4 Not Detected (NOT DETECT); Respiratory Syncytial Virus A Not Detected (NOT DETECT); Respiratory Syncytial Virus B Not Detected (NOT DETECT); SARS-COV-2 Not Detected (NOT DETECT)
== END 2024-05-04 16:41 | disposition skilled nursing facility (03) | DRG 197 ==
LOC: ER 12:22 → CSU 13:29
PROVIDERS: Internal Medicine; Admitting Provider Internal Medicine; Emergency Provider Emergency Medicine; PCP Family Medicine; Visit Provider Student in an Organized Health Care Education/Training Program
DX: J67.9 Hypersensitivity pneumonitis due to unspecified organic dust (principal); C79.31 Secondary malignant neoplasm of brain; C79.51 Secondary malignant neoplasm of bone; N17.9 Acute kidney failure, unspecified; I50.22 Chronic systolic (congestive) heart failure; C43.9 Malignant melanoma of skin, unspecified; E83.42 Hypomagnesemia; E03.9 Hypothyroidism, unspecified; E87.5 Hyperkalemia; D69.6 Thrombocytopenia, unspecified; Z92.21 Personal history of antineoplastic chemotherapy; M25.50 Pain in unspecified joint; Z92.3 Personal history of irradiation; E87.6 Hypokalemia; E80.6 Other disorders of bilirubin metabolism; Z85.51 Personal history of malignant neoplasm of bladder
CPT/HCPCS: 36415; 36416; 70450; 71045; 71100; 71275; 80048; 80053; 80069; 80177; 81001; 82962; 83735; 84100; 84443; 85025; 87635; 87637; 94760; 96365; 97110; 97116; 97161; 97165; 97530; 99285; G0378; J3475; J7030; J7040; J7512; J8540

== ENCOUNTER 2024-05-29 18:23 | Inpatient (IN) | payer MEDICARE, OTHER, SELFPAY ==
[2024-05-29] VITALS (16 sets, daily range): BP systolic 75–97; BP diastolic 56–62; PULSE 93–108; RESP 14–24; TEMP 36.6–37.8; O2SAT 90–95
--- NOTE | 2024-05-29 18:48 | XRR_ITS ---
PROCEDURE INFORMATION: Exam: XR Chest Exam date and time: 05/29/2024 6:50 PM Age: 78 years old Clinical indication: Hypotension; AMS; Cough; Metastatic brain CA TECHNIQUE: Imaging protocol: Radiologic exam of the chest. Views: 1 view. COMPARISON: CT angio chest PE protcl [id number] 05/03/2024 2:36 PM FINDINGS: Lungs: Unremarkable. No consolidation. Pleural spaces: Unremarkable. No pleural effusion. No pneumothorax. Heart/Mediastinum: Unremarkable. No cardiomegaly. Bones/joints: Unremarkable. XR/XR chest 1V portable [id number] IMPRESSION: No acute findings.
--- NOTE | 2024-05-29 18:48 | CTR_ITS ---
PROCEDURE INFORMATION: Exam: CT Head Without Contrast Exam date and time: 05/29/2024 6:59 PM Age: 78 years old Clinical indication: Altered mental status/memory loss; [facility] decline. history of metastatic cancer with brain mets. ; Additional info: AMS TECHNIQUE: Imaging protocol: Computed tomography of the head without contrast. Radiation optimization: All CT scans at this facility use at least one of these dose optimization techniques: automated exposure control; mA and/or kV adjustment per patient size (includes targeted exams where dose is matched to clinical indication); or iterative reconstruction. COMPARISON: CT head wo con* [id number] 05/01/2024 9:23 AM RADIATION DOSE METRICS: Total DLP (mGy-cm): 1051.54 FINDINGS: Brain: Redemonstrated multiple hyperdense metastatic lesions, previously identified on prior CT and MRI studies; not significantly changed in comparison to prior. Mild adjacent vasogenic edema is again noted. No acute intracranial hemorrhage or new line impression: New line midline shift. Cerebral ventricles: No ventriculomegaly. Paranasal sinuses: Visualized sinuses are unremarkable. No fluid levels. Mastoid air cells: Visualized mastoid air cells are well aerated. Bones: Unremarkable. No acute fracture. Soft tissues: Unremarkable. CT/CT head wo con* [id number] IMPRESSION: 1. Redemonstrated hyperdense metastatic lesions, characterized in more detail on prior imaging. These appear not significantly changed in comparison to prior study. 2. No acute intracranial hemorrhage, large territorial infarction or midline shift.
--- NOTE | 2024-05-29 18:58 | ED_ITS ---
HPI - Weakness 2 General: Chief complaint: Weakness Stated complaint: ams Time Seen by Provider: 05/29/24 18:27 History of Present Illness: 78-year-old long-term patient. He wa s admitted 3 weeks or so ago there. He presents with mental decline evidently today. He was found to be hypotensive by EMS. He remains so. He is awake. He states he is cold. He believes it is May. He says he has been coughing. He denies fevers. He denies significant shortness of breath. PFSH ED 2 PFSH: Medical History Skin cancer, basal cell Bladder cancer COPD (chronic obstructive pulmonary disease) Hypertension Malignant melanoma of back Surgical History History of right knee surgery History of hernia repair Family History Father Melanoma Mother Heart disease Sister Diabetes Social History Smoking and tobacco/nicotine status: former use of tobacco/nicotine Additional social history: He quit smoking 40 to 50 years ago. Physical Exam 2 Const: GENERAL APPEARANCE: cooperative, ill appearing and frail appearing O RIENTATION/CONSCIOUSNESS: Yes awake, Yes oriented to person and Yes oriented to place HENMT: COMMON NORMALS: normocephalic, atraumatic and Normal external nose present HEAD & SCALP: normocephalic and atraumatic FACE & SINUS: normal facial exam and face symmetric NOSE: Normal external nose present Eye: COMMON NORMALS: Equal, round and reactive pupils present and EOMs intact bilaterally PUPIL: Yes Equal, round and reactive pupils present Neck/C-Spine: GENERAL: Yes trachea midline Chest: CHEST: Yes Symmetrical chest wall rise Resp: COMMON NORMALS: normal respiratory effort, No retractions, No use of accessory muscles and clear to auscultation bilaterally AUSCULTATION: clear to auscultation bilaterally Cardio: COMMON NORMALS: regular rate and regular rhythm RATE: regular rate RHYTHM: regular rhythm GI: COMMON NORMALS: Normal to inspection, nondistended, normoactive bowel sounds present PALPATION: No Tenderness to palpation present (GI) Extremity: COMMON NORMALS: no pedal edema Neuro: HIRAM COMA SCALE: document GCS findings [place] coma scale eye opening: Spontaneous [place] coma scale verbal response: Orientated Hiram coma scale motor response: Obey commands Hiram coma scale total score: 15 S ENSORIUM/ORIENTATION: Yes oriented to person and Yes oriented to place S ENSORY EXAM: Yes extremities (intact) Psych: COMMON NORMALS: speech normal SPEECH: Yes normal speech Skin: COMMON NORMALS: no rashes or lesions noted GENERAL SKIN EXAM: no rashes or lesions noted Course 2 Vital Signs: Vital signs: Vital Signs Temperature 98.3 F 05/29/24 21:40 Pulse Rate 101 H 05/29/24 21:40 Respiratory Rate 19 H 05/29/24 21:40 Blood Pressure 90/60 05/29/24 21:40 Pulse Oximetry 93 05/29/24 21:40 Oxygen Delivery Me thod Nasal Cannula 05/29/24 21:58 Oxygen Flow Rate 3 05/29/24 20:43 MDM - Weakness Medical Decision Making Patient is hypotensive on arrival. Sepsis bolus ordered. He is afebrile. Patient's had 2.7 L, still mildly hypotensive but improved. MAP is above 65. He is on oxygen. He is afebrile. His creatinine is 4.5. His last one at the beginning of the month was 1. His BUN is 58. However, electrolytes are normal. Head CT is negative for acute change, and redemonstrates metastatic lesions. Pelvis CT shows a severely thickened bladder with some fat stranding in both kidneys suggestive of urinary tract infection. He will be admitted he has had only 250 cc of dark urine output despite the 2.7 L. He is placed on maintenance fluid. Hospitalist will see the patient. Lab Data 05/29/24 18:56 05/29/24 18:56 Radiology Impressions Chest X-Ray 05/29/24 18:48 IMPRESSION: No acute findings. Head CT 05/29/24 18:48 IMPRESSION: 1. Redemonstrated hyperdense metastatic lesions, characterized in more detail on prior imaging. These appear not significantly changed in comparison to prior study. 2. No acute intracranial hemorrhage, large territorial infarction or midline shift. Abdomen/Pelvis CT 05/29/24 20:55 IMPRESSION: 1. Severely thickened bladder decompressed status post catheterization. Bilateral perinephric fat stranding, greater on the right. Constellation of findings is nonspecific but concerning for ascending urinary tract infection. 2. Colonic diverticulosis. 3. Small bilateral pleural effusions and minimal consolidation within bilateral lung bases, likely represents atelectasis although developing infiltrate can not be excluded. Laboratory Results WBC 5.84 10^3/uL (3.29-11.43) 05/29/24 18:56 RBC 3.69 10^6/uL (3.85-5.65) L 05/29/24 18:56 Hgb 11.50 g/dL (11.27-16.99) 05/29/24 18:56 Hct 35.9 % (37-53) L 05/29/24 18:56 MCV 97.3 fl (82-101) 05/29/24 18:56 MCH 31.2 pg (27-33) 05/29/24 18:56 MCHC 32.0 g/dL (30-55) 05/29/24 18:56 RDW 15.8 % (12.1-15.1) H 05/29/24 18:56 Plt Count 220 10^3/cmm (157-399) 05/29/24 18:56 MPV 10.6 fL (7.4-10.4) H 05/29/24 18:56 Neut % (Auto) 69.4 % 05/29/24 18:56 Lymph % (Auto) 24.3 % 05/29/24 18:56 [place] % (Auto) 3.9 % 05/29/24 18:56 Eos % (Auto) 0.9 % 05/29/24 18:56 Baso % (Auto) 0.5 % 05/29/24 18:56 Neut # (Auto) 4.05 10^3/uL (1.8-7.7) 05/29/24 18:56 Lymph # (Auto) 1.4 10^3/uL (0.8-4.8) 05/29/24 18:56 [place] # (Auto) 0.2 10^3/uL (0.2-0.9) 05/29/24 18:56 Eos # (Auto) 0.1 10^3/uL (0.0-0.8) 05/29/24 18:56 Baso # (Auto) 0.0 10^3/uL (0.0-0.1) 05/29/24 18:56 Nucleated RBC % (auto) 0 % 05/29/24 18:56 Nucleated RBCs # 0.0 /100WBC 05/29/24 18:56 Sodium 140 mmol/L (136-145) 05/29/24 18:56 Potassium 4.4 mmol/L (3.5-5.1) 05/29/24 18:56 Chloride 101 mmol/L (98-107) 05/29/24 18:56 Carbon Dioxide 28 mmol/L (22-29) 05/29/24 18:56 Anion Gap 15.4 (5-19) 05/29/24 18:56 BUN 58 mg/dL (8-23) H 05/29/24 18:56 Creatinine 4.5 mg/dL (0.7-1.2) H 05/29/24 18:56 GFR Calculation Not Reportable 05/29/24 18:56 Glucose 118 mg/dL (65-115) H 05/29/24 18:56 Calculated Osmolality 307 mOsm/kg (285-295) H 05/29/24 18:56 Lactic Acid 1.7 mmol/L (0.5-2.2) 05/29/24 18:56 Calcium 7.7 mg/dL (8.5-10.5) L 05/29/24 18:56 Total Bilirubin 1.1 mg/dL (0.15-1.2) 05/29/24 18:56 AST 28 U/L (0-40) 05/29/24 18:56 ALT 9 U/L (0-41) 05/29/24 18:56 Alkaline Phosphatase 61 U/L (40-130) 05/29/24 18:56 C-Reactive Protein 125.2 mg/L (0.0-4.9) H 05/29/24 18:56 Total Protein 5.0 g/dL (6.6-8.7) L 05/29/24 18:56 Albumin 2.4 g/dL (3.5-5.2) L 05/29/24 18:56 Globulin 2.6 g/dL (1.3-4.6) 05/29/24 18:56 Urine Color [place] (Yellow) A 05/29/24 19:54 Urine Appearance Cloudy (CLEAR) A 05/29/24 19:54 Urine pH 5.0 (5-7) 05/29/24 19:54 Ur Specific Tony 1.020 (1.005-1.030) 05/29/24 19:54 Urine Protein 1+ (Negative) A 05/29/24 19:54 Urine Glucose (UA) Negative (Normal) 05/29/24 19:54 Urine Ketones Trace (Negative) 05/29/24 19:54 Urine Blood Negative (Negative) 05/29/24 19:54 Urine Nitrate Negative (Negative) 05/29/24 19:54 Urine Bilirubin 2+ (Negative) H 05/29/24 19:54 Urine Urobilinogen 1.0 mg/dL (Negative) 05/29/24 19:54 Ur Leukocyte Esterase Trace (Negative) A 05/29/24 19:54 Urine RBC 0-4 /hpf (0-2) H 05/29/24 19:54 Urine WBC 5-10 /hpf (0-5) H 05/29/24 19:54 Ur Squamous Epith Cells 0-4 /hpf (0-5) H 05/29/24 19:54 Amorphous Sediment Not Reportable 05/29/24 19:54 Urine Bacteria Trace /hpf (NONE) 05/29/24 19:54 Hyaline Casts 15-25 /lpf H 05/29/24 19:54 All radiology interpretation(s) finalized by discharge Discharge Plan Discharge Patient Disposition: Admitted As Inpatient Admit Provider: Cat Vila Clinical Impression: Acute kidney injury, Acute hypotension Condition: Serious Coding Level of Care Code ED Individual Pension Consultant for [facility] Fwd Related Data Home Medications ?Medication ?Instructions ?Recorded ?Confirmed albuterol sulfate 90 mcg/actuation 2 puff inhalation Q 6H 10/13/23 05/01/24 aerosol inhaler allopurinol 100 mg tablet 100 mg PO BID 05/01/2405/01 Previous Rx's ?Medication ?Instructions ?Recorded levothyroxine 100 mcg tablet 100 mcg PO 0600 #30 tabs 04/07/24 (Levoxyl) levetiracetam 500 mg tablet 500 mg PO BID #60 tabs (Keppra) metoprolol tartrate 25 mg tablet 25 mg PO BID@0900,210 0 30 days #60 05/04/24 tabs nystatin 100,000 unit/mL oral 500,000 unit (5 mL) PO Q ID 30 days 05/04/24 suspension #600 mL pantoprazole 40 mg tablet,delayed 40 mg PO DAILY 4 wee ks #30 tabs 05/04/24 release (Protonix) prednisone 10 mg tablet See Taper PO BID #42 tabs sulfamethoxazole 800 1 tab PO .mowefri PJP prophy laxis 05/04/24 mg-trimethoprim 160 mg tablet 30 days #10 tabs (Bactrim DS) Allergies Allergy/AdvReac Type Severity Reaction Status Date / Time No Known Allergies Allergy Verified 04/29/24 08:12
[2024-05-29 19:09] LABS: Basophils % 0.5 %; Eosinophils # 0.1 10^3/uL (0.0-0.8); Eosinophils % 0.9 %; Hematocrit 35.9 % (37-53); Lymphocytes # 1.4 10^3/uL (0.8-4.8); Lymphocytes % 24.3 %; Mean Corpuscular Hemoglobin 31.2 pg (27-33); Mean Corpuscular Volume 97.3 fl (82-101); Mean Platelet Volume 10.6 fL (7.4-10.4); Monocytes # 0.2 10^3/uL (0.2-0.9); Monocytes % 3.9 %; Neutrophils # 4.05 10^3/uL (1.8-7.7); Neutrophils % 69.4 %; Nucleated Red Blood Cells % 0 %; Platelet Count 220 10^3/cmm (157-399); Red Blood Count 3.69 10^6/uL (3.85-5.65); Red Cell Distribution Width 15.8 % (12.1-15.1); White Blood Count 5.84 10^3/uL (3.29-11.43)
[2024-05-29 19:27] LABS: Lactic Sepsis W/Reflex 1.7 mmol/L (0.5-2.2)
[2024-05-29 19:28] LABS: Alanine Aminotransferase 9 U/L (0-41); Albumin Level 2.4 g/dL (3.5-5.2); Alkaline Phosphatase 61 U/L (40-130); Anion Gap 15.4 (5-19); Aspartate Amino Transferase 28 U/L (0-40); Blood Urea Nitrogen 58 mg/dL (8-23); C Reactive Protein 125.2 mg/L (0.0-4.9); Calcium 7.7 mg/dL (8.5-10.5); Carbon Dioxide 28 mmol/L (22-29); Chloride 101 mmol/L (98-107); Creatinine Clr Calc Pharmacy 15.1465; Globulin 2.6 g/dL (1.3-4.6); Glucose 118 mg/dL (65-115); Osmolality Calculated 307 mOsm/kg (285-295); Potassium 4.4 mmol/L (3.5-5.1); Sodium 140 mmol/L (136-145); Total Bilirubin 1.1 mg/dL (0.15-1.2)
[2024-05-29 19:35] LABS: Slide Review Slide Review Perform
[2024-05-29 20:04] LABS: Bilirubin Urine 2+ (Negative); Blood Urine Negative (Negative); Glucose Urine UA Negative (Normal); Ketones Urine Trace (Negative); Leukocyte Esterase Urine Trace (Negative); Nitrate Urine Negative (Negative); Protein Urine 1+ (Negative); Urine Appearance Cloudy (CLEAR)
[2024-05-29 20:11] LABS: Add Urine Microscopic? YES; Bacteria Urine TRACE /hpf; Hyaline Casts Urine 15-25 /lpf; RBC Urine 0-4 /hpf (0-2); Squamous Epithelial Cell Urine 0-4 /hpf (0-5); Urine Color Orange (Yellow)
[2024-05-29 20:12] LABS: Add Urine Culture? No
--- NOTE | 2024-05-29 20:55 | P.HP_ITS ---
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 He has recently been admitted for acute diverticulitis.. Nivolumab has been stopped as of early March 2024 due to progressive disease in spite of treatment. Patient was planned to be started on Dabrafenib and Trametinib but once reports that patient is no longer interested in continuing chemotherapy presented from the shelter with chief complaint generalized weakness and fatigue. Patient is extremely weak and lethargic complaining of rigors, chills, blood pressure was low on presentation which improved with IV fluid hydration, workup in the ER consistent with PRESTON I have requested CT scan of abdomen pelvis without contrast, Lin catheter was placed 200 mL urine extremely concentrated dark- colored urine obtained. Patient is stating that he is not experiencing pain anywhere, no active focal deficits noted most of the history provided by and the [id number] at the bedside. As per the patient has been bedbound for last 48 hours, he was put on 2 L of oxygen as well at the shelter, he has developed stage I pressure ulcer around buttocks and last 2 to 3 days as well at the shelter. At baseline patient is eating mechanical soft diet most of the time he drinks soup. Review of Systems 2 Const: Reports: chills Eyes: Denies: change in vision ENMT: Denies: throat pain Card: Denies: chest pain Resp: Denies: dyspnea GI: Reports: nausea : Denies: flank pain Musc: Denies: neck pain Skin/Breast: Reports: rash and erythema Medications/Allergies Home Medications ?Medication ?Instructions ?Recorded ?Confirmed ?Last Taken ?Type albuterol sulfate 90 mcg/actuation 2 puff inhalation Q 6H 10/13/23 05/01/24 Unknown History aerosol inhaler levothyroxine 100 mcg tablet 100 mcg PO 0600 #30 tabs 04/07/24 05/01/24 04/30/24 Rx (Levoxyl) levetiracetam 500 mg tablet 500 mg PO BID #60 tabs 01/ 30/25 02/01/25 01/31/25 Rx (Keppra) allopurinol 100 mg tablet 100 mg PO BID 05/01/2405/0104/30/24 History metoprolol tartrate 25 mg tablet 25 mg PO BID@0900,210 0 30 days #60 05/04/24 Unknown Rx tabs nystatin 100,000 unit/mL oral 500,000 unit (5 mL) PO Q ID 30 days 05/04/24 Unknown Rx suspension #600 mL pantoprazole 40 mg tablet,delayed 40 mg PO DAILY 4 wee ks #30 tabs 05/04/24 Unknown Rx release (Protonix) prednisone 10 mg tablet See Taper PO BID #42 tabs Unknown Rx sulfamethoxazole 800 1 tab PO .mowefri PJP prophy laxis 05/04/24 Unknown Rx mg-trimethoprim 160 mg tablet 30 days #10 tabs (Bactrim DS) Allergies Allergy/AdvReac Type Severity Reaction Status Date / Time No Known Allergies Allergy Verified 04/29/24 08:12 PFSH Acute 2 PFSH: Medical History Skin cancer, basal cell Bladder cancer COPD (chronic obstructive pulmonary disease) Hypertension Malignant melanoma of back Surgical History History of right knee surgery History of hernia repair Family History Father Melanoma Mother Heart disease Sister Diabetes Social History Smoking and tobacco/nicotine status: former use of tobacco/nicotine Additional social history: He quit smoking 40 to 50 years ago. Vitals/I&O/Wt Last Vital Signs Temp 97.9 F 05/29/24 18:24 Pulse 99 05/29/24 20:43 Resp 18 05/29/24 20:43 BP 86/56 05/29/24 20:43 Pulse Ox 95 05/29/24 20:43 O2 Del Method Nasal Cannula 05/29/24 20:43 O2 Flow Rate 3 05/29/24 20:43 05/29/24 05/29/24 05/29/24 06:59 14:59 22:59 Intake Total 3148.78 / 3148.78 Balance 3148.78 / 3148.78 Weight last 48 hrs Weight 91.626 kg Physical Exam 2 Narrative: Extreme lethargic and fatigue Clinical signs of dehydration Dry mucous membrane Currently on 2 L nasal cannula No audible stridor or wheezing No active sign of focal deficit Able to follow commands Pupils symmetrical S1, S2 Abdomen soft Lower extremity trace edema with some redness no active sign of cellulitis Stage I sacral area ulcer/pressure ulcer Urinary Catheter Management: Lin: Cath Placed During This Visit: yes Urinary Catheter Date of Insertion: 05/29/24 Urinary Catheter Time of Insertion: 20:02 Data 05/29/24 18:56 05/29/24 18:56 Micro: Microbiology 05/29/24 19:00 Blood Culture - Preliminary Blood SPECIMEN COLLECTED 05/29/24 18:56 Blood Culture - Preliminary Blood SPECIMEN COLLECTED A&P Assessment and plan (1) Heart failure with reduced ejection fraction: (2) Acute kidney injury: (3) Metastasis to brain: (4) Malignant melanoma of back: (5) Generalized weakness: (6) Weakness: Plan Generalized weakness and fatigue Underlying skin cancer with mets to brain CT head showing chronic changes Patient not showing sign of focal deficit Dry mucous membrane no clinical signs of dehydration Continue IV fluids with close monitoring for development of any signs of fluid overload considering history of CHF PRESTON Rule out hydronephrosis requested CT abdomen pelvis without contrast Patient has recently finished Bactrim course for possible PCP pneumonia Avoid nephrotoxic agents on previous admission Aldactone was discontinued Hypotension: Related to hypovolemia, please note on previous admission Aldactone and beta-aaliyah were discontinued secondary to PRESTON and hypotension Patient has very poor p.o. intake Patient has history of congestive heart failure with reduced EF: Judicious IV fluid hydration Metastatic melanoma status post brain radiation secondary to brain metastatic lesion Patient and family not interested in continuation of therapy Failure to thrive Recent B12 was normal however low normal range, TSH normal Patient has been bedbound for last 2 days, developed sacral area ulcer Decreased p.o. intake I discussed with the in case patient gets worse over the course of time in next few days to weeks such as he is not able to walk, not able to talk and not able to eat properly, what would they prefer to do in those scenarios, might lean towards palliative care Hypocalcemia however corrected calcium with respect albumin will be towards normal Goals of care discussed with the : Patient is DNR/DNI Will choose mechanical soft diet DVT prophylaxis: Heparin PDMP PDMP Reviewed: Not Reviewed Attestations 2 Medical Necessity Statement*: Anticipating more than 2 midnights Diagnoses Heart failure with reduced ejection fraction I50.20 Acute kidney injury N17.9 Metastasis to brain C79.31 Malignant melanoma of back C43.59 Generalized weakness R53.1 Weakness R53.1
--- NOTE | 2024-05-29 20:55 | CTR_ITS ---
PROCEDURE INFORMATION: Exam: CT Abdomen And Pelvis Without Contrast Exam date and time: 05/29/2024 9:32 PM Age: 78 years old Clinical indication: Abnormal findings; Abnormal lab test; Abnormal kidney function lab tests; Acute renal failure by chemistry findings. History of melanoma and bladder cancer with brain mets. TECHNIQUE: Imaging protocol: Computed tomography of the abdomen and pelvis without contrast. Radiation optimization: All CT scans at this facility use at least one of these dose optimization techniques: automated exposure control; mA and/or kV adjustment per patient size (includes targeted exams where dose is matched to clinical indication); or iterative reconstruction. COMPARISON: [place] [id number] 04/04/2024 9:00 PM RADIATION DOSE METRICS: Total DLP (mGy-cm): 1636.6 FINDINGS: Lungs: Unremarkable. Pleural spaces: Small bilateral pleural effusions and minimal consolidation within bilateral lung bases. Liver: Normal. No mass. Gallbladder and biliary ducts: Normal. No calcified stones. No ductal dilation. Pancreas: Normal. No ductal dilation. Spleen: Normal. No splenomegaly. Adrenal glands: Normal. No mass. Kidneys and ureters: Subcentimeter hypodensities within bilateral kidneys, too small to characterized but may represent hemorrhagic cysts; stable from prior study. Bilateral perinephric fat stranding, greater on the right. No obstructing calculi. Stomach and bowel: Colonic diverticulosis. Appendix: No evidence of appendicitis. Intraperitoneal space: Unremarkable. No free air. No significant fluid collection. Vasculature: Diffuse atherosclerosis of abdominal aorta. Lymph nodes: Unremarkable. No enlarged lymph nodes. Urinary bladder: Urinary bladder is collapsed status post catheterization. Reproductive: Enlarged prostate. Bones/joints: Diffuse osteopenia and severe degenerative change within visualized spine. Soft tissues: Unremarkable. CT/CT kidney stone [id number] IMPRESSION: 1. Severely thickened bladder decompressed status post catheterization. Bilateral perinephric fat stranding, greater on the right. Constellation of findings is nonspecific but concerning for ascending urinary tract infection. 2. Colonic diverticulosis. 3. Small bilateral pleural effusions and minimal consolidation within bilateral lung bases, likely represents atelectasis although developing infiltrate can not be excluded.
[2024-05-29] MEDS: sodium chloride 0.9% 1,000 ML 200 ML IV (20:56)
--- NOTE | 2024-05-29 22:16 | PC.NURSE ---
states patient has to have soft food because he has no teeth and no dentures.
[2024-05-29] MEDS: heparin 5,000 unit/mL INJ 1 mL 5000 UNIT SUBCUT (22:29)
--- NOTE | 2024-05-29 23:37 | PC.NURSE ---
states she has DPOA. Informed her to please bring us a copy of this.
[2024-05-29] MEDS: cefTRIAXone 2,000 mg SDV 2000 MG IVP (23:46)
[2024-05-30] VITALS (56 sets, daily range): BP systolic 80–130; BP diastolic 45–85; PULSE 56–140; RESP 4–33; TEMP 36.4–37.2; O2SAT 85–99
[2024-05-30] MEDS: sodium chloride 0.9% 1,000 ML 75 ML IV ×2 (01:42→07:39)
--- NOTE | 2024-05-30 03:29 | ECG_ITS ---
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 Measurements Intervals [place] Rate: 113 P: 95 MN: 193 QRS: -8 QRSD: 105 T: 82 QT: 330 QTc: 453 Interpretive Statements SINUS TACHYCARDIA WITH FREQUENT VENTRICULAR PREMATURE COMPLEXES LOW QRS VOLTAGE IN EXTREMITY LEADS POSSIBLE ANTERIOR MYOCARDIAL INFARCTION , OF INDETERMINATE AGE Compared to ECG 04/04/2024 19:07:41 Ventricular premature complex(es) now present Electronically Signed On 05-30-2024 12:06:11 CORPORATE DEVELOPMENT OFFICER by Lenard Cristina M.D. [email or web address]
--- NOTE | 2024-05-30 03:42 | PC.NURSE ---
Dr. Vila notified that patient had 30 second run of SVT on telemetry.
[2024-05-30 04:00] LABS: Basophils % 0.2 %; Eosinophils # 0.1 10^3/uL (0.0-0.8); Hematocrit 29.7 % (37-53); Lymphocytes # 1.5 10^3/uL (0.8-4.8); Lymphocytes % 29.5 %; Mean Corpuscular Hemoglobin 31.9 pg (27-33); Mean Corpuscular Volume 99.7 fl (82-101); Mean Platelet Volume 10.4 fL (7.4-10.4); Monocytes # 0.2 10^3/uL (0.2-0.9); Monocytes % 3.8 %; Neutrophils # 3.38 10^3/uL (1.8-7.7); Neutrophils % 64.7 %; Nucleated Red Blood Cells % 0 %; Platelet Count 208 10^3/cmm (157-399); Red Blood Count 2.98 10^6/uL (3.85-5.65); Red Cell Distribution Width 15.7 % (12.1-15.1); White Blood Count 5.22 10^3/uL (3.29-11.43)
[2024-05-30 04:11] LABS: Slide Review Slide Review Perform
[2024-05-30 04:27] LABS: Anion Gap 11.2 (5-19); Blood Urea Nitrogen 53 mg/dL (8-23); C Reactive Protein 105.7 mg/L (0.0-4.9); Calcium 6.8 mg/dL (8.5-10.5); Carbon Dioxide 29 mmol/L (22-29); Chloride 107 mmol/L (98-107); Creatinine Clr Calc Pharmacy 21.8232; Glucose 87 mg/dL (65-115); Magnesium 1.4 mg/dL (1.7-2.3); Osmolality Calculated 310 mOsm/kg (285-295); Phosphorus 3.2 mg/dL (2.5-4.5); Potassium 4.2 mmol/L (3.5-5.1); Sodium 143 mmol/L (136-145)
[2024-05-30] MEDS: levothyroxine 100 mcg Tablet PO (05:23)
--- NOTE | 2024-05-30 06:06 | ECG_ITS ---
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 Measurements Intervals [place] Rate: 142 P: -21 VT: 142 QRS: -18 QRSD: 106 T: 63 QT: 296 QTc: 456 Interpretive Statements SINUS TACHYCARDIA WITH Frequent VENTRICULAR PREMATURE COMPLEXES, LOW QRS VOLTAGE IN EXTREMITY LEADS ANTEROSEPTAL MYOCARDIAL INFARCTION , OF INDETERMINATE AGE Compared to ECG 05/30/2024 03:34:06 No significant changes Electronically Signed On 05-30-2024 12:04:42 RIDING COACH by Lenard Cristina M.D. [id number]
[2024-05-30] MEDS: amiodarone 150 MG/100 ML PREMIX 400 MG IV (06:07)
--- NOTE | 2024-05-30 06:09 | PC.NURSE ---
Addendum entered by Lisa Stringer RN 05/30/24 06:26: Also notified that it is sinus tachycardia. Addendum entered by Lisa Stringer RN 05/30/24 06:14: Dr. Vila also notified that patient takes Metoprolol BID at the halfway. Original Note: Patient's heart rate now maintaining 140s. Blood pressure 91/60. Dr. Vila notified. Amio bolus ordered.
--- NOTE | 2024-05-30 06:33 | PC.NURSE ---
Dr. Vila notified of Amio bolus being finished and blood pressure being 80/51 and heart rate 133. Ordered to give 500 ml bolus and transfer to ICU.
--- NOTE | 2024-05-30 06:39 | PC.NURSE ---
Dr. Vila updated with vital signs. Heart rate 117 and blood pressure of 94/46. Ordered to wait on ICU transfer until fluid bolus is complete and call with updated vital signs when bolus is complete.
--- NOTE | 2024-05-30 07:02 | PC.NURSE ---
Dr. Vila notified of updated vital signs after IV fluid bolus. Blood pressure 94/46 and heart rate 117. Ordered to go ahead and transfer patient to ICU.
--- NOTE | 2024-05-30 07:13 | PC.NURSE ---
Attempt to contact and daughter, Rina, however it went to voicemail. Daughter, Alyssa, answered the phone. Notified her that patient is being transferred to ICU. I verified patient's code status. She said he is a do not resuscitate because they don't want his lungs crushed. She stated she is okay with him received medications to help increase his blood pressure and lower his heart rate. Patient is currently oriented to person only. Report given to BJ in ICU.
--- NOTE | 2024-05-30 07:49 | PC.NURSE ---
recieved to icu [address] with pacs, monitor blood pressure at this time cunningham dark donny urine noted
[2024-05-30] MEDS: hydrocortisone 100 mg/2 mL SDV IVP (07:55)
[2024-05-30] MEDS: levETIRAcetam 500 mg Tablet PO ×2 (08:23→17:46)
[2024-05-30] MEDS: allopurinol 100 mg Tablet PO ×2 (08:23→17:46)
[2024-05-30] MEDS: pantoprazole DR 40 mg Tablet PO (08:23)
--- NOTE | 2024-05-30 08:53 | ECG_ITS ---
[employer] [facility] 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 Measurements Intervals [place] Rate: 140 P: 247 SC: 118 QRS: -27 QRSD: 109 T: 68 QT: 308 QTc: 470 Interpretive Statements SUPRAVENTRICULAR TACHYCARDIA LOW QRS VOLTAGE IN EXTREMITY LEADS [QRS DEFLECTION < 0.5 mV IN LIMB LEADS] ANTEROSEPTAL MYOCARDIAL INFARCTION , OF INDETERMINATE AGE [40+ ms Q WAVE IN V1-V4] Compared to ECG 05/30/2024 06:06:13 No significant changes Electronically Signed On 06-05-2024 19:25:59 RN ACUTE DIALYSIS by Al Melton M.D. [id number]
[2024-05-30] MEDS: magnesium sulfate premix 1 GM/100 ML PIGGYBACK IV (09:13)
[2024-05-30] MEDS: heparin 5,000 unit/mL INJ 1 mL 5000 UNIT SUBCUT ×2 (09:16→20:52)
[2024-05-30] MEDS: lactated ringers 1,000 ML 30 ML IV (09:16)
[2024-05-30] MEDS: albumin 25 G/100 ML BAG 60 G IV ×2 (09:17→16:47)
[2024-05-30 10:00] LABS: Troponin(5th) Baseline 86 ng/L (0-15)
[2024-05-30 10:07] LABS: NT Pro B Type Natriuretic Pept 2531 pg/mL (0-450)
--- NOTE | 2024-05-30 10:26 | ECG_ITS ---
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 Measurements Intervals [place] Rate: 106 P: 0 NV: 0 QRS: -22 QRSD: 109 T: 94 QT: 362 QTc: 482 Interpretive Statements Sinus rhythm with first-degree AV block with frequent PVCs LOW QRS VOLTAGE IN EXTREMITY LEADS [QRS DEFLECTION < 0.5 mV IN LIMB LEADS] POSSIBLE ANTERIOR MYOCARDIAL INFARCTION , PROBABLY OLD INFERIOR MYOCARDIAL INFARCTION , OF INDETERMINATE AGE Compared to ECG 05/30/2024 09:03:13 No significant changes Electronically Signed On 05-30-2024 12:41:19 ADVERTISING DESIGNER by Lenard Cristina M.D. [id number]
[2024-05-30] MEDS: vancomycin 1,500 MG/300 ML PIGGYBACK 200 MG IV (10:40)
[2024-05-30] MEDS: piperacillin-tazobactam 3.375 GM in sodium chloride 0.9% (plus) 50 ML IV ×2 (11:01→17:46)
[2024-05-30 11:59] LABS: Troponin 5 2HR 77.21 ng/L (0-15)
[2024-05-30 12:01] LABS: Troponin 5 2HR Delta -8.79 ABS# (0-10)
--- NOTE | 2024-05-30 12:50 | P.PN_ITS ---
Subjective 2 Subjective: Patient was seen this morning he is alert to person, place, not to time he can follow commands, he does not remember how he ended up in the hospital, he tells me that he lives at home with his , does report a recent fall, denies any pain, no shortness of breath no lightheadedness, dizziness no headache, no blurry vision Vitals/I&O/Wt Last Vital Signs Temp 98.9 F 05/30/24 04:00 Pulse 139 H 05/30/24 08:24 Resp 16 05/30/24 08:24 BP 94/46 05/30/24 06:58 Pulse Ox 92 05/30/24 08:24 O2 Del Method Nasal Cannula 05/30/24 06:20 O2 Flow Rate 2 05/30/24 08:24 05/29/24 05/30/24 05/30/24 22:59 06:59 14:59 Intake Total 3628.78 / 3628.78 1466.25 / 5095.03 1333.75 / 1333.75 Output Total 550 / 550 Balance 3628.78 / 3628.78 916.25 / 4545.03 1333.75 / 1333.75 Weight last 48 hrs Weight 87.634 kg Weight 87.543 kg Weight 90.129 kg Weight 91.626 kg Physical Exam 2 Const: COMMON NORMALS: no acute distress ORIENTATION/CONSCIOUSNESS: Yes awake, Yes oriented to person and Yes oriented to place; not oriented to time and not confused Resp: COMMON NORMALS: normal respiratory effort, No retractions, No use of accessory muscles and clear to auscultation bilaterally AUSCULTATION: clear to auscultation bilaterally Cardio: COMMON NORMALS: regular rate, regular rhythm, S1 normal heart sound present and S2 normal heart sound present RATE: regular rate RHYTHM: r egular rhythm HEART SOUNDS: S1 normal heart sound present and S2 normal heart sound present GI: COMMON NORMALS: Normal to inspection, nondistended, normoactive bowel sounds present, Soft to palpation and non-tender PALPATION: Yes Soft to palpation Extremity: COMMON NORMALS: no pedal edema Neuro: SENSORIUM/ORIENTATION: Yes oriented to person, Yes oriented to place and No oriented to time Psych: COMMON NORMALS: mental status grossly normal Urinary Catheter Management: Lin: Cath Placed During This Visit: yes Reason for Continuing Indwelling Catheter: Other Urinary Catheter Date of Insertion: 05/29/24 Urinary Catheter Time of Insertion: 20:02 Sepsis: Is patient septic: Yes Focused sepsis exam performed: Yes F ocused sepsis exam: DP PT pulses palpable, cap refill greater than 2 seconds, no mottling lower extremity Date exam was performed: 05/30/24 Time exam was performed: 09:00 Data 05/30/24 02:39 05/30/24 02:39 Micro: Microbiology 05/29/24 19:00 Blood Culture - Preliminary Blood SPECIMEN COLLECTED 05/29/24 18:56 Blood Culture - Preliminary Blood SPECIMEN COLLECTED A&P Assessment and plan (1) Heart failure with reduced ejection fraction: (2) Acute kidney injury: (3) Metastasis to brain: (4) Malignant melanoma of back: (5) Generalized weakness: (6) Weakness: (7) UTI (urinary tract infection): (8) Sepsis: (9) Septic shock: (10) NSTEMI (non-ST elevated myocardial infarction): (11) Pyelonephritis: Plan Generalized weakness and fatigue With underlying history of melanoma with mets to brain CT head CT/CT head wo con* [id number] IMPRESSION: 1. Redemonstrated hyperdense metastatic lesions, characterized in more detail on prior imaging. These appear not significantly changed in comparison to prior study. 2. No acute intracranial hemorrhage, large territorial infarction or midline shift. No headache, blurry vision, no focal weakness -With evidence of UTI, pyelonephritis Plan -Monitor Pyelonephritis, UTI CT scan abdomen pelvis - CT/CT kidney stone [id number] IMPRESSION: 1. Severely thickened bladder decompressed status post catheterization. Bilateral perinephric fat stranding, greater on the right. Constellation of findings is nonspecific but concerning for ascending urinary tract infection. 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 Failure to thrive Recent B12 was normal however low normal range, TSH normal Patient has been bedbound for last 2 days, developed sacral area ulcer Will await goals of care discussion Hypocalcemia however corrected calcium with respect albumin will be towards normal Hypoalbuminemia Sinus tachycardia, monitor for risk of atrial flutter Goals of care discussed with the : Patient is DNR/DNI Will choose mechanical soft diet DVT prophylaxis: Heparin PDMP PDMP Reviewed: Not Reviewed Attestations 2 Medical Necessity Statement*: Patient requires hospitalization for septic shock secondary to pyelonephritis, UTI, PRESTON Diagnoses Heart failure with reduced ejection fraction I50.20 Acute kidney injury N17.9 Metastasis to brain C79.31 Malignant melanoma of back C43.59 Generalized weakness R53.1 Weakness R53.1 UTI (urinary tract infection) N39.0 Sepsis A41.9 Septic shock A41.9; R65.21 NSTEMI (non-ST elevated myocardial infarction) I21.4 Pyelonephritis N12
[2024-05-30 14:21] LABS: Anion Gap 12.5 (5-19); Blood Urea Nitrogen 44 mg/dL (8-23); Carbon Dioxide 24 mmol/L (22-29); Chloride 108 mmol/L (98-107); Creatinine Clr Calc Pharmacy 27.8361; Glucose 174 mg/dL (65-115); Osmolality Calculated 305 mOsm/kg (285-295); Potassium 4.5 mmol/L (3.5-5.1); Sodium 140 mmol/L (136-145)
--- NOTE | 2024-05-30 15:26 | PHA.VACGOAL ---
Vancomycin Goal - Goal Vancomycin Goal:: 15-20 mg/L - Therapy Day of therpy:: Day []of [] . Actual body weight (kg): 193 lb 3.2 oz - Data Labs: WBC 5.22 10^3/uL (3.29-11.43) 05/30/24 02:39 RBC 2.98 10^6/uL (3.85-5.65) L 05/30/24 02:39 Hgb 9.50 g/dL (11.27-16.99) L 05/30/24 02:39 Hct 29.7 % (37-53) L 05/30/24 02:39 MCV 99.7 fl (82-101) 05/30/24 02:39 MCH 31.9 pg (27-33) 05/30/24 02:39 MCHC 32.0 g/dL (30-55) 05/30/24 02:39 RDW 15.7 % (12.1-15.1) H 05/30/24 02:39 Sodium 140 mmol/L (136-145) 05/30/24 13:54 Potassium 4.5 mmol/L (3.5-5.1) 05/30/24 13:54 Chloride 108 mmol/L (98-107) H 05/30/24 13:54 Carbon Dioxide 24 mmol/L (22-29) 05/30/24 13:54 Anion Gap 12.5 (5-19) 05/30/24 13:54 BUN 44 mg/dL (8-23) H 05/30/24 13:54 Creatinine 2.4 mg/dL (0.7-1.2) H 05/30/24 13:54 GFR Calculation Not Reportable 05/30/24 13:54 Treatment plan:: new consult Regimen:: PULSE DOSE VANC LEVEL / @ 0900 TO DETERMINE NEXT DOSE
[2024-05-30 15:51] LABS: Troponin 5 6HR 64.67 ng/L (0-15)
--- NOTE | 2024-05-30 15:51 | ECG_ITS ---
[employer] [employer] Test Date: 2024-05-30 Pat Name: Kush Dodd Department: Room: [facility] Gender: Male [employer] Job Tit[employer]: : 1945 Requested By: Jone Xiong Order Number: [id number] Wendie MD: Lenard Cristina M.D. Measurements Intervals [place] Rate: 77 P: 71 UT: 189 QRS: -21 QRSD: 108 T: 34 QT: 428 QTc: 487 Interpretive Statements SINUS RHYTHM WITH FREQUENT VENTRICULAR PREMATURE COMPLEXES LOW QRS VOLTAGE IN EXTREMITY LEADS POSSIBLE ANTERIOR MYOCARDIAL INFARCTION , PROBABLY OLD ABNORMAL RHYTHM ECG Compared to ECG 05/30/2024 10:26:34 No significant changes Electronically Signed On 05-30-2024 17:22:23 PROJECT CONTROL MANAGER by Lenard Cristina M.D. [email or web address]
[2024-05-30 15:52] LABS: Troponin 5 6HR Delta -21.33 ng/L (0-12)
[2024-05-30] MEDS: midodrine 5 mg TABLET 10 MG PO ×2 (16:18→20:52)
[2024-05-31] VITALS (51 sets, daily range): BP systolic 91–123; BP diastolic 42–82; PULSE 45–77; RESP 0–24; TEMP 36.3–37.2; O2SAT 90–100
[2024-05-31] MEDS: albumin 25 G/100 ML BAG 60 G IV ×3 (01:24→17:25)
[2024-05-31] MEDS: piperacillin-tazobactam 3.375 GM in sodium chloride 0.9% (plus) 50 ML IV ×3 (02:53→17:26)
[2024-05-31] MEDS: midodrine 5 mg TABLET 10 MG PO ×4 (03:40→20:50)
[2024-05-31] MEDS: levothyroxine 100 mcg Tablet PO (05:17)
[2024-05-31 05:33] LABS: Basophils % 0.2 %; Hematocrit 28.2 % (37-53); Lymphocytes # 0.6 10^3/uL (0.8-4.8); Lymphocytes % 14.3 %; Mean Corpuscular HGB Conc 32.3 g/dL (30-55); Mean Corpuscular Hemoglobin 31.5 pg (27-33); Mean Corpuscular Volume 97.6 fl (82-101); Mean Platelet Volume 10.3 fL (7.4-10.4); Monocytes # 0.1 10^3/uL (0.2-0.9); Monocytes % 1.6 %; Neutrophils # 3.69 10^3/uL (1.8-7.7); Neutrophils % 83.4 %; Nucleated Red Blood Cells % 0 %; Platelet Count 209 10^3/cmm (157-399); Red Blood Count 2.89 10^6/uL (3.85-5.65); Red Cell Distribution Width 15.8 % (12.1-15.1); White Blood Count 4.42 10^3/uL (3.29-11.43)
[2024-05-31 06:05] LABS: NT Pro B Type Natriuretic Pept 12347 pg/mL (0-450); Procalcitonin 0.66 ng/mL (0-0.5)
[2024-05-31 06:10] LABS: Add RBC Morph Yes; Anisocytosis 3+; Hypochromasia 2+; Ovalocytes 1+; Poikilocytosis Trace; RBC Morph Comp No; Slide Review Slide Review Perform
[2024-05-31 06:16] LABS: Alanine Aminotransferase 10 U/L (0-41); Alkaline Phosphatase 40 U/L (40-130); Anion Gap 12.1 (5-19); Aspartate Amino Transferase 25 U/L (0-40); Blood Urea Nitrogen 41 mg/dL (8-23); C Reactive Protein 63.9 mg/L (0.0-4.9); Calcium 7.6 mg/dL (8.5-10.5); Carbon Dioxide 26 mmol/L (22-29); Chloride 108 mmol/L (98-107); Creatinine Clr Calc Pharmacy 37.2087; Globulin 2.1 g/dL (1.3-4.6); Glucose 163 mg/dL (65-115); Magnesium 1.6 mg/dL (1.7-2.3); Osmolality Calculated 308 mOsm/kg (285-295); Phosphorus 3.1 mg/dL (2.5-4.5); Potassium 4.1 mmol/L (3.5-5.1); Sodium 142 mmol/L (136-145); Total Bilirubin 0.7 mg/dL (0.15-1.2); Total Protein 5.1 g/dL (6.6-8.7)
[2024-05-31] MEDS: DOPamine drip 400 MG/250 ML PREMIX 16.53 MG IV (06:53)
[2024-05-31] MEDS: ondansetron 2 mg/ML SDV 2 mL 4 MG IVP (07:17)
--- NOTE | 2024-05-31 07:30 | PC.NURSE ---
Patient became more bradycardic and heart rate more irregular throughout the night. Heart rate sustained in 50's and would go into 40's for short periods. While turning patient had 17 beats of v tach followed by two shorter runs. BP remained WNL, patient asymptomatic, denied any chest discomfort. Dr. Vila made aware new order for dopamine, to start if patient asymptomatic. Patient remained asymptomatic until 0645, heart rate sustained in 40's, patient oxygen saturation lower. Dopamine started, patient quickly started having more v tach, more PVC's, heart rate over 100, and complaining of nausea. Dopamine then stopped.
[2024-05-31] MEDS: levETIRAcetam 500 mg Tablet PO ×2 (08:45→17:25)
[2024-05-31] MEDS: allopurinol 100 mg Tablet PO ×2 (08:45→17:25)
[2024-05-31] MEDS: pantoprazole DR 40 mg Tablet PO (08:45)
[2024-05-31] MEDS: heparin 5,000 unit/mL INJ 1 mL 5000 UNIT SUBCUT ×2 (08:46→20:49)
--- NOTE | 2024-05-31 09:56 | PC.NURSE ---
LR on hold, unable to update in MAY.
[2024-05-31 10:11] LABS: Vancomycin Trough 9.5 ug/mL (10-15)
[2024-05-31] MEDS: vancomycin 1,250 MG/250 ML PIGGYBACK 166.67 MG IV (12:39)
--- NOTE | 2024-05-31 14:10 | PC.SOCIAL ---
IMM Update pg 2 of IMM updated and reviewed w/ patient. Copy provided and copy dated, initialed and placed in chart.
--- NOTE | 2024-05-31 14:55 | PM.PN ---
Subjective Subjective: Patient was seen this morning, he is alert to person, somewhat to place, not to time, he recognizes his at bedside -He did require dopamine this morning due to hypotension and bradycardia currently blood pressures are improved to remain to have bradycardia -He denies any pain complaints -He is able to follow commands, but remains at times confused - tells me that they have taken him off chemo and radiation since February -They do not want to pursue any more treatment for his melanoma -He was at the [place] [facility] receiving rehab, but in the last 2 weeks he has not walked -He has had intermittent episodes of confusion, which have persisted, he tends to come in and out of it she tells me -She is considering hospice, but would like to talk to case management, she is not ready to make decision she is also debating whether to take him home versus [facility] would like to talk to case management Vitals/I&O/Wt Last Vital Signs Temp 99.0 F 05/31/24 11:38 Pulse 58 L 05/31/24 14:06 Resp 16 05/31/24 13:05 BP 106/68 05/31/24 13:05 Pulse Ox 99 05/31/24 13:05 O2 Del Method Nasal Cannula 05/31/24 13:05 O2 Flow Rate 2 05/31/24 09:00 05/30/24 05/31/24 05/31/24 22:59 06:59 14:59 Intake Total 760 / 2193.75 680 / 2873.75 647.439 / 647.439 Output Total 1000 / 1000 650 / 1650 Balance -240 / 1193.75 30 / 1223.75 647.439 / 647.439 Weight last 48 hrs Weight 88.133 kg Weight 87.634 kg Weight 87.543 kg Weight 90.129 kg Weight 91.626 kg Physical Exam Const: COMMON NORMALS: no acute distress ORIENTATION/CONSCIOUSNESS: Yes awake, Yes oriented to person and Yes confused; not oriented to place and not oriented to time Resp: COMMON NORMALS: normal respiratory effort, No retractions and No use of accessory muscles AUSCULTATION: wheezes Cardio: COMMON NORMALS: regular rhythm, S1 normal heart sound present and S2 normal heart sound present RATE: bradycardic RHYTHM: regular rhythm HEART SOUNDS: S1 normal heart sound present and S2 normal heart sound present GI: COMMON NORMALS: Normal to inspection, nondistended, normoactive bowel sounds present and non-tender Extremity: COMMON NORMALS: no pedal edema Neuro: SENSORIUM/ORIENTATION: Yes oriented to person, No oriented to place and No oriented to time Psych: COMMON NORMALS: mental status grossly normal Urinary Catheter Management: Lin: Cath Placed During This Visit: yes Reason for Continuing Indwelling Catheter: Accurate Measurement of Urinary Output in Critically Ill Patients Urinary Catheter Date of Insertion: 05/29/24 Urinary Catheter Time of Insertion: 20:02 Sepsis: Is patient septic: Yes Focused sepsis exam performed: Yes Focused sepsis exam: DP PT pulses palpable, cap refill greater than 2 seconds, no mottling Date exam was performed: 05/31/24 Time exam was performed: 09:00 Data 05/31/24 05:21 05/31/24 05:21 Micro: Microbiology 05/29/24 19:00 Blood Culture - Preliminary Blood NEGATIVE TO DATE 05/29/24 18:56 Blood Culture - Preliminary Blood NEGATIVE TO DATE A&P Assessment and plan (1) Heart failure with reduced ejection fraction: (2) Acute kidney injury: (3) Metastasis to brain: (4) Malignant melanoma of back: (5) Generalized weakness: (6) Weakness: (7) UTI (urinary tract infection): (8) Sepsis: (9) Septic shock: (10) NSTEMI (non-ST elevated myocardial infarction): (11) Pyelonephritis: Plan Generalized weakness and fatigue With underlying history of melanoma with metastasis to brain CT head CT/CT head wo con* [id number] IMPRESSION: 1. Redemonstrated hyperdense metastatic lesions, characterized in more detail on prior imaging. These appear not significantly changed in comparison to prior study. 2. No acute intracranial hemorrhage, large territorial infarction or midline shift. No headache, blurry vision, no focal weakness -With evidence of UTI, pyelonephritis Plan -Monitor -Goals of care discussion with family Acute encephalopathy -Likely multifactorial from melanoma with metastasis to brain -Sepsis, UTI, pyonephritis Pyelonephritis, UTI CT scan abdomen pelvis - CT/CT kidney stone [id number] IMPRESSION: 1. Severely thickened bladder decompressed status post catheterization. Bilateral perinephric fat stranding, greater on the right. Constellation of findings is nonspecific but concerning for ascending urinary tract infection. Plan -Blood cultures -Urine culture -Vancomycin -Zosyn Sepsis, with septic shock -Associate with pyelonephritis, UTI, with tachycardia, hypotension -Status post sepsis bolus -Status post hydrocortisone -Levophed to maintain MAP greater than 65 -Requiring dopamine, due to hypotension, bradycardia PRESTON Patient has recently finished Bactrim, could be playing a role -Sepsis playing a role -Monitor creatinine, monitor urine output Systolic CHF, monitor for risk of fluid overload Metastatic melanoma status post brain radiation secondary to brain metastatic lesion Failure to thrive Recent B12 was normal however low normal range, TSH normal Patient has been bedbound for last 2 days, developed sacral area ulcer Await goals of care decision with family Stage II sacral decubitus ulcer, monitor Hypocalcemia however corrected calcium with respect albumin will be towards normal Hypoalbuminemia Sinus tachycardia, monitor for risk of atrial flutter Goals of care discussed with the : Patient is DNR/DNI Dysphagia level 4 diet DVT prophylaxis: Heparin PDMP PDMP Reviewed: Not Reviewed Attestations Medical Necessity Statement*: Patient requires hospitalization due to septic shock, sepsis, hypotension, bradycardia, PRESTON, encephalopathy Diagnoses Heart failure with reduced ejection fraction I50.20 Acute kidney injury N17.9 Metastasis to brain C79.31 Malignant melanoma of back C43.59 Generalized weakness R53.1 Weakness R53.1 UTI (urinary tract infection) N39.0 Sepsis A41.9 Septic shock A41.9; R65.21 NSTEMI (non-ST elevated myocardial infarction) I21.4 Pyelonephritis N12
--- NOTE | 2024-05-31 16:30 | PC.NURSE ---
Patient coughing and nursing staff to assess patient, found to be giving patient thin liquids. Patient and patients educated on diet order and recommendations on thickness of liquids. Patient and patients educated on aspiration risks. Both have verbalized understanding.
[2024-06-01] VITALS (35 sets, daily range): BP systolic 80–118; BP diastolic 41–74; PULSE 52–96; RESP 11–27; TEMP 36.6–36.8; O2SAT 92–97
[2024-06-01] MEDS: piperacillin-tazobactam 3.375 GM in sodium chloride 0.9% (plus) 50 ML IV ×3 (01:30→17:38)
[2024-06-01] MEDS: albumin 25 G/100 ML BAG 60 G IV ×3 (01:30→17:39)
[2024-06-01 04:05] LABS: Basophils % 0.5 %; Eosinophils % 0.3 %; Lymphocytes # 0.6 10^3/uL (0.8-4.8); Lymphocytes % 13.9 %; Mean Corpuscular HGB Conc 31.4 g/dL (30-55); Mean Corpuscular Hemoglobin 31.2 pg (27-33); Mean Corpuscular Volume 99.3 fl (82-101); Mean Platelet Volume 10.3 fL (7.4-10.4); Monocytes # 0.1 10^3/uL (0.2-0.9); Monocytes % 1.8 %; Neutrophils # 3.29 10^3/uL (1.8-7.7); Nucleated Red Blood Cells % 0 %; Platelet Count 229 10^3/cmm (157-399); Red Blood Count 2.92 10^6/uL (3.85-5.65); White Blood Count 3.96 10^3/uL (3.29-11.43)
[2024-06-01 04:31] LABS: Alanine Aminotransferase 9 U/L (0-41); Albumin Level 3.3 g/dL (3.5-5.2); Alkaline Phosphatase 47 U/L (40-130); Anion Gap 12.5 (5-19); Aspartate Amino Transferase 22 U/L (0-40); Blood Urea Nitrogen 34 mg/dL (8-23); C Reactive Protein 30.8 mg/L (0.0-4.9); Calcium 7.7 mg/dL (8.5-10.5); Carbon Dioxide 28 mmol/L (22-29); Chloride 109 mmol/L (98-107); Creatinine Clr Calc Pharmacy 41.8598; Globulin 1.9 g/dL (1.3-4.6); Glucose 88 mg/dL (65-115); Magnesium 1.6 mg/dL (1.7-2.3); Osmolality Calculated 309 mOsm/kg (285-295); Phosphorus 1.4 mg/dL (2.5-4.5); Potassium 3.5 mmol/L (3.5-5.1); Sodium 146 mmol/L (136-145); Total Bilirubin 0.7 mg/dL (0.15-1.2); Total Protein 5.2 g/dL (6.6-8.7)
[2024-06-01 04:40] LABS: NT Pro B Type Natriuretic Pept 23523 pg/mL (0-450); Procalcitonin 0.46 ng/mL (0-0.5)
[2024-06-01] MEDS: midodrine 5 mg TABLET 10 MG PO ×4 (04:52→20:16)
[2024-06-01] MEDS: levothyroxine 100 mcg Tablet PO (05:04)
[2024-06-01] MEDS: pantoprazole DR 40 mg Tablet PO (08:52)
[2024-06-01] MEDS: allopurinol 100 mg Tablet PO ×2 (08:52→17:38)
[2024-06-01] MEDS: levETIRAcetam 500 mg Tablet PO ×2 (08:52→17:38)
[2024-06-01] MEDS: heparin 5,000 unit/mL INJ 1 mL 5000 UNIT SUBCUT ×2 (10:16→21:29)
[2024-06-01] MEDS: vancomycin 1,250 MG/250 ML PIGGYBACK 166.67 MG IV (12:18)
--- NOTE | 2024-06-01 16:34 | P.PN_ITS ---
Subjective 2 Subjective: Patient was seen this morning, denies any fevers, chills, no cough, no nausea, no vomiting, he is alert to person, not to place, not to time, he can follow commands, remains off dopamine Vitals/I&O/Wt Last Vital Signs Temp 98.2 F 06/01/24 12:00 Pulse 69 06/01/24 15:14 Resp 21 H 06/01/24 15:14 BP 115/60 06/01/24 15:14 Pulse Ox 97 06/01/24 15:14 O2 Del Method Nasal Cannula 06/01/24 14:54 O2 Flow Rate 2 06/01/24 14:54 06/01/24 06/01/24 06/01/24 06:59 14:59 22:59 Intake Total 580 / 1667.439 450 / 450 Output Total 650 / 1150 Balance -70 / 517.439 450 / 450 Weight last 48 hrs Weight 89.222 kg Weight 88.133 kg Physical Exam 2 Const: COMMON NORMALS: no acute distress ORIENTATION/CONSCIOUSNESS: Yes awake, Yes oriented to person and Yes confused; not oriented to place and not oriented to time Eye: COMMON NORMALS: Equal, round and reactive pupils present PUPIL: Yes Equal, round and reactive pupils present Resp: COMMON NORMALS: normal respiratory effort AUSCULTATION: crackles and wheezes Cardio: COMMON NORMALS: regular rate, regular rhythm, S1 normal heart sound present and S2 normal heart sound present RATE: regular rate RHYTHM: r egular rhythm HEART SOUNDS: S1 normal heart sound present and S2 normal heart sound present GI: COMMON NORMALS: Normal to inspection, nondistended, normoactive bowel sounds present and non-tender Extremity: COMMON NORMALS: no pedal edema Neuro: SENSORIUM/ORIENTATION: Yes oriented to person, No oriented to place and No oriented to time Urinary Catheter Management: Lin: Cath Placed During This Visit: yes Reason for Continuing Indwelling Catheter: Accurate Measurement of Urinary Output in Critically Ill Patients Urinary Catheter Date of Insertion: 05/29/24 Urinary Catheter Time of Insertion: 20:02 Data 06/01/24 03:33 06/01/24 03:33 A&P Assessment and plan (1) Heart failure with reduced ejection fraction: (2) Acute kidney injury: (3) Metastasis to brain: (4) Malignant melanoma of back: (5) Generalized weakness: (6) Weakness: (7) UTI (urinary tract infection): (8) Sepsis: (9) Septic shock: (10) NSTEMI (non-ST elevated myocardial infarction): (11) Pyelonephritis: Plan Generalized weakness and fatigue With underlying history of melanoma with metastasis to brain CT head CT/CT head wo con* [id number] IMPRESSION: 1. Redemonstrated hyperdense metastatic lesions, characterized in more detail on prior imaging. These appear not significantly changed in comparison to prior study. 2. No acute intracranial hemorrhage, large territorial infarction or midline shift. No headache, blurry vision, no focal weakness -With evidence of UTI, pyelonephritis Plan -Monitor -Goals of care decision with family, pending Acute encephalopathy -Likely multifactorial from melanoma with metastasis to brain -Sepsis, UTI, pyonephritis Pyelonephritis, UTI CT scan abdomen pelvis - CT/CT kidney stone [id number] IMPRESSION: 1. Severely thickened bladder decompressed status post catheterization. Bilateral perinephric fat stranding, greater on the right. Constellation of findings is nonspecific but concerning for ascending urinary tract infection. Plan -Blood cultures -Urine culture -Vancomycin -Zosyn Sepsis, with septic shock, resolving -Associate with pyelonephritis, UTI, with tachycardia, hypotension -Status post sepsis bolus -Status post hydrocortisone -Levophed to maintain MAP greater than 65 -off dopamine PRESTON Patient has recently finished Bactrim, could be playing a role -Sepsis playing a role -Monitor creatinine, monitor urine output Systolic CHF, monitor for risk of fluid overload Metastatic melanoma status post brain radiation secondary to brain metastatic lesion Failure to thrive Recent B12 was normal however low normal range, TSH normal Patient has been bedbound for last 2 days, developed sacral area ulcer Await goals of care decision with family Stage II sacral decubitus ulcer, monitor, wound care Hypocalcemia however corrected calcium with respect albumin will be towards normal Hypoalbuminemia Sinus tachycardia, monitor for risk of atrial flutter Goals of care discussed with the : Patient is DNR/DNI Dysphagia level 4 diet DVT prophylaxis: Heparin PDMP PDMP Reviewed: Not Reviewed Attestations 2 Medical Necessity Statement*: Patient requires hospitalization for septic shock secondary to UTI, pyelonephritis Diagnoses Heart failure with reduced ejection fraction I50.20 Acute kidney injury N17.9 Metastasis to brain C79.31 Malignant melanoma of back C43.59 Generalized weakness R53.1 Weakness R53.1 UTI (urinary tract infection) N39.0 Sepsis A41.9 Septic shock A41.9; R65.21 NSTEMI (non-ST elevated myocardial infarction) I21.4 Pyelonephritis N12
--- NOTE | 2024-06-01 18:44 | PC.NURSE ---
Patient transferred to [place] called Vanessa the and updated her at 1845
[2024-06-02] VITALS (9 sets, daily range): BP systolic 96–133; BP diastolic 62–78; PULSE 84–96; RESP 16–20; TEMP 36.4–37.4; O2SAT 90–96; BMI 28.1
[2024-06-02] MEDS: albumin 25 G/100 ML BAG 60 G IV ×3 (00:31→20:54)
[2024-06-02] MEDS: piperacillin-tazobactam 3.375 GM in sodium chloride 0.9% (plus) 50 ML IV ×3 (03:04→22:18)
[2024-06-02] MEDS: midodrine 5 mg TABLET 10 MG PO ×3 (03:04→22:17)
[2024-06-02 05:35] LABS: Basophils % 0.8 %; Eosinophils # 0.1 10^3/uL (0.0-0.8); Hematocrit 33.1 % (37-53); Lymphocytes # 1.4 10^3/uL (0.8-4.8); Lymphocytes % 28.3 %; Mean Corpuscular HGB Conc 30.2 g/dL (30-55); Mean Corpuscular Hemoglobin 30.6 pg (27-33); Mean Corpuscular Volume 101.2 fl (82-101); Mean Platelet Volume 9.9 fL (7.4-10.4); Monocytes # 0.3 10^3/uL (0.2-0.9); Monocytes % 5.3 %; Neutrophils # 3.11 10^3/uL (1.8-7.7); Nucleated Red Blood Cells % 0 %; Platelet Count 267 10^3/cmm (157-399); Red Blood Count 3.27 10^6/uL (3.85-5.65); Red Cell Distribution Width 16.3 % (12.1-15.1); White Blood Count 4.87 10^3/uL (3.29-11.43)
[2024-06-02 06:06] LABS: NT Pro B Type Natriuretic Pept 29325 pg/mL (0-450); Procalcitonin 0.27 ng/mL (0-0.5)
[2024-06-02 06:11] LABS: Alanine Aminotransferase 7 U/L (0-41); Albumin Level 3.8 g/dL (3.5-5.2); Alkaline Phosphatase 45 U/L (40-130); Anion Gap 13.9 (5-19); Aspartate Amino Transferase 22 U/L (0-40); Blood Urea Nitrogen 24 mg/dL (8-23); C Reactive Protein 28.7 mg/L (0.0-4.9); Calcium 8.1 mg/dL (8.5-10.5); Carbon Dioxide 28 mmol/L (22-29); Chloride 111 mmol/L (98-107); Creatinine Clr Calc Pharmacy 44.8246; Glucose 74 mg/dL (65-115); Magnesium 1.5 mg/dL (1.7-2.3); Osmolality Calculated 311 mOsm/kg (285-295); Phosphorus 1.9 mg/dL (2.5-4.5); Potassium 3.9 mmol/L (3.5-5.1); Sodium 149 mmol/L (136-145); Total Protein 5.8 g/dL (6.6-8.7)
[2024-06-02] MEDS: heparin 5,000 unit/mL INJ 1 mL 5000 UNIT SUBCUT ×2 (09:40→22:17)
[2024-06-02 11:40] LABS: Vancomycin Trough 13.8 ug/mL (10-15)
--- NOTE | 2024-06-02 14:21 | P.PN_ITS ---
Subjective 2 Subjective: Patient was seen this morning, he is alert to person, not to place, time he frequently falls asleep during our conversation, patient easily falls back asleep, patient's [id number] is at bedside, spoke to [id number], called patient's , discussed clinical status, discussed goals of care with patient's , options discussed was [facility] hosp[facility] versus hospice at home unfortunately there is no one to take care of him at home, the other option was nursing home facility placement for rehab Vitals/I&O/Wt Last Vital Signs Temp 98.4 F 06/02/24 11:00 Pulse 89 06/02/24 11:00 Resp 17 06/02/24 11:00 BP 117/62 06/02/24 11:00 Pulse Ox 96 06/02/24 11:00 O2 Del Method Nasal Cannula 06/02/24 11:00 O2 Flow Rate 2 06/02/24 10:42 06/01/24 06/02/24 06/02/24 22:59 06:59 14:59 Intake Total 1150 / 1600 100 / 1700 50 / 50 Output Total 950 / 950 250 / 1200 Balance 200 / 650 -150 / 500 50 / 50 Weight last 48 hrs Weight 88.904 kg Weight 89.222 kg Physical Exam 2 Const: COMMON NORMALS: no acute distress ORIENTATION/CONSCIOUSNESS: Yes awake and Yes confused; not oriented to person, not oriented to place and not oriented to time Resp: COMMON NORMALS: normal respiratory effort, No retractions, No use of accessory muscles and clear to auscultation bilaterally AUSCULTATION: clear to auscultation bilaterally Cardio: COMMON NORMALS: regular rate, regular rhythm, S1 normal heart sound present and S2 normal heart sound present RATE: regular rate RHYTHM: r egular rhythm HEART SOUNDS: S1 normal heart sound present and S2 normal heart sound present GI: OTHER: Abdomen soft, distended, good bowel sounds, no guarding, rebound, rigidity Extremity: COMMON NORMALS: no pedal edema Neuro: SENSORIUM/ORIENTATION: No oriented to person, No oriented to place and No oriented to time Psych: COMMON NORMALS: mental status grossly normal Urinary Catheter Management: Lin: Cath Placed During This Visit: yes Reason for Continuing Indwelling Catheter: Accurate Measurement of Urinary Output in Critically Ill Patients Urinary Catheter Date of Insertion: 05/29/24 Urinary Catheter Time of Insertion: 20:02 Data 06/02/24 04:50 06/02/24 04:50 A&P Assessment and plan (1) Heart failure with reduced ejection fraction: (2) Acute kidney injury: (3) Metastasis to brain: (4) Malignant melanoma of back: (5) Generalized weakness: (6) Weakness: (7) UTI (urinary tract infection): (8) Sepsis: (9) Septic shock: (10) NSTEMI (non-ST elevated myocardial infarction): (11) Pyelonephritis: Plan Generalized weakness and fatigue With underlying history of melanoma with metastasis to brain CT head CT/CT head wo con* [id number] IMPRESSION: 1. Redemonstrated hyperdense metastatic lesions, characterized in more detail on prior imaging. These appear not significantly changed in comparison to prior study. 2. No acute intracranial hemorrhage, large territorial infarction or midline shift. No headache, blurry vision, no focal weakness -With evidence of UTI, pyelonephritis Plan -Monitor -Goals of care decision with family, pending Acute encephalopathy, persistent encephalopathy -Likely multifactorial from melanoma with metastasis to brain -Sepsis, UTI, pyonephritis Pyelonephritis, UTI CT scan abdomen pelvis - CT/CT kidney stone [id number] IMPRESSION: 1. Severely thickened bladder decompressed status post catheterization. Bilateral perinephric fat stranding, greater on the right. Constellation of findings is nonspecific but concerning for ascending urinary tract infection. Plan -Blood cultures -Urine culture -Vancomycin -Zosyn Sepsis, with septic shock, resolving -Associate with pyelonephritis, UTI, with tachycardia, hypotension -Status post sepsis bolus -Status post hydrocortisone -Levophed to maintain MAP greater than 65 -off dopamine PRESTON Patient has recently finished Bactrim, could be playing a role -Sepsis playing a role -Monitor creatinine, monitor urine output Systolic CHF, monitor for risk of fluid overload Metastatic melanoma status post brain radiation secondary to brain metastatic lesion Failure to thrive Recent B12 was normal however low normal range, TSH normal Patient has been bedbound for last 2 days, developed sacral area ulcer Await goals of care decision with family Stage II sacral decubitus ulcer, monitor, wound care Hypocalcemia however corrected calcium with respect albumin will be towards normal Hypoalbuminemia Sinus tachycardia, monitor for risk of atrial flutter Goals of care discussed with the : Patient is DNR/DNI Dysphagia level 4 diet DVT prophylaxis: Heparin PDMP PDMP Reviewed: Not Reviewed Attestations 2 Medical Necessity Statement*: Patient requires hospitalization for acute encephalopathy, UTI, pyelonephritis, sepsis Diagnoses Heart failure with reduced ejection fraction I50.20 Acute kidney injury N17.9 Metastasis to brain C79.31 Malignant melanoma of back C43.59 Generalized weakness R53.1 Weakness R53.1 UTI (urinary tract infection) N39.0 Sepsis A41.9 Septic shock A41.9; R65.21 NSTEMI (non-ST elevated myocardial infarction) I21.4 Pyelonephritis N12
--- NOTE | 2024-06-02 14:40 | PC.SOCIAL ---
IMM UPDATED IMM dated and initialed, copy placed in chart and copy given to patient
[2024-06-02] MEDS: levETIRAcetam 500 mg Tablet PO (17:19)
[2024-06-02] MEDS: allopurinol 100 mg Tablet PO (17:19)
[2024-06-02] MEDS: vancomycin 1,250 MG/250 ML PIGGYBACK 166.67 MG IV (17:20)
[2024-06-03] VITALS (8 sets, daily range): BP systolic 103–147; BP diastolic 62–83; PULSE 91–121; RESP 16–26; TEMP 36.4–37.9; O2SAT 90–96
[2024-06-03] MEDS: albumin 25 G/100 ML BAG 60 G IV ×3 (04:00→20:14)
[2024-06-03 05:20] LABS: Basophils % 0.7 %; Eosinophils % 0.7 %; Hematocrit 33.5 % (37-53); Lymphocytes # 1.7 10^3/uL (0.8-4.8); Lymphocytes % 30.3 %; Mean Corpuscular HGB Conc 30.4 g/dL (30-55); Mean Corpuscular Hemoglobin 31.8 pg (27-33); Mean Corpuscular Volume 104.4 fl (82-101); Mean Platelet Volume 9.9 fL (7.4-10.4); Monocytes # 0.3 10^3/uL (0.2-0.9); Monocytes % 5.9 %; Neutrophils # 3.35 10^3/uL (1.8-7.7); Neutrophils % 61.5 %; Nucleated Red Blood Cells % 0 %; Platelet Count 251 10^3/cmm (157-399); Red Blood Count 3.21 10^6/uL (3.85-5.65); Red Cell Distribution Width 16.2 % (12.1-15.1); White Blood Count 5.45 10^3/uL (3.29-11.43)
[2024-06-03] MEDS: levothyroxine 100 mcg Tablet PO (05:39)
[2024-06-03] MEDS: piperacillin-tazobactam 3.375 GM in sodium chloride 0.9% (plus) 50 ML IV ×3 (05:39→22:16)
[2024-06-03] MEDS: midodrine 5 mg TABLET 10 MG PO ×2 (05:39→22:15)
[2024-06-03 05:42] LABS: Blood Urea Nitrogen 15 mg/dL (8-23); Calcium 8.3 mg/dL (8.5-10.5); Carbon Dioxide 29 mmol/L (22-29); Chloride 110 mmol/L (98-107); Creatinine Clr Calc Pharmacy 56.1748; Glucose 84 mg/dL (65-115); Osmolality Calculated 310 mOsm/kg (285-295); Sodium 150 mmol/L (136-145)
--- NOTE | 2024-06-03 07:55 | ECG_ITS ---
[facility] Pat Name: Kush Dodd Department: Room: 270 Gender: Male Pricing Clerk: : 1945 Requested By: Jone Xiong Order Number: [id number] Wendie MD: Al Melton M.D. Measurements Intervals [place] Rate: 116 P: 113 GA: 179 QRS: 5 QRSD: 105 T: 71 QT: 325 QTc: 453 Interpretive Statements SINUS TACHYCARDIA LOW QRS VOLTAGE IN EXTREMITY LEADS [QRS DEFLECTION < 0.5 mV IN LIMB LEADS] ANTEROSEPTAL MYOCARDIAL INFARCTION , OF INDETERMINATE AGE [40+ ms Q WAVE IN V1-V4] Compared to ECG 05/30/2024 15:51:48 Sinus rhythm no longer present Ventricular premature complex(es) no longer present Myocardial infarct finding still present Electronically Signed On 06-05-2024 18:06:23 GAS LEAK TESTER by Al Melton M.D. [id number]
[2024-06-03] MEDS: heparin 5,000 unit/mL INJ 1 mL 5000 UNIT SUBCUT ×2 (10:57→22:15)
--- NOTE | 2024-06-03 14:27 | ECG_ITS ---
[employer] Test Date: 2024-06-03 Pat Name: Kush Dodd Department: Room: 270 Gender: Male Student Education Specialist: : 1945 Requested By: Jone Xiong Order Number: [id number] Pressley MD: Al Melton M.D. Measurements Intervals [place] Rate: 111 P: 0 HI: 0 QRS: 0 QRSD: 116 T: 69 QT: 340 QTc: 464 Interpretive Statements ATRIAL FIBRILLATION WITH RAPID VENTRICULAR RESPONSE WITH ABERRANT CONDUCTION OR VENTRICULAR PREMATURE COMPLEXES LOW QRS VOLTAGE IN EXTREMITY LEADS [QRS DEFLECTION < 0.5 mV IN LIMB LEADS] ANTEROSEPTAL MYOCARDIAL INFARCTION , OF INDETERMINATE AGE [40+ ms Q WAVE IN V1-V4] Compared to ECG 06/03/2024 07:55:12 Ventricular premature complex(es) now present Aberrant conduction of supraventricular beat(s) now present Sinus tachycardia no longer present Myocardial infarct finding still present Electronically Signed On 06-05-2024 19:37:24 AIR TRAFFIC COORDINATOR by Al Melton M.D. [id number]
--- NOTE | 2024-06-03 15:40 | P.PN_ITS ---
Subjective 2 Subjective: Patient was seen this morning, he does awaken, but falls back asleep, normotensive overnight, on 1 L nasal cannula, family members at bedside, discussed his hypernatremia we will start him on IV fluids, at about 3 PM, patient developed episodes of A-fib with RVR, will continue to monitor consider amiodarone drip based on clinical progress Vitals/I&O/Wt Last Vital Signs Temp 98.0 F 06/03/24 15:26 Pulse 112 H 06/03/24 15:26 Resp 16 06/03/24 15:26 BP 118/69 06/03/24 15:26 Pulse Ox 90 06/03/24 15:26 O2 Del Method Nasal Cannula 06/03/24 15:26 O2 Flow Rate 2 06/03/24 09:23 06/03/24 06/03/24 06/03/24 06:59 14:59 22:59 Intake Total 210 / 1030 150 / 150 Output Total 500 / 1100 Balance -290 / -70 150 / 150 Weight last 48 hrs Weight 89.414 kg Weight 88.904 kg Physical Exam 2 Const: COMMON NORMALS: no acute distress ORIENTATION/CONSCIOUSNESS: Yes awake and Yes confused; not oriented to person, not oriented to place and not oriented to time Resp: COMMON NORMALS: normal respiratory effort, No retractions, No use of accessory muscles and clear to auscultation bilaterally AUSCULTATION: clear to auscultation bilaterally Cardio: COMMON NORMALS: regular rate, regular rhythm, S1 normal heart sound present and S2 normal heart sound present RATE: regular rate RHYTHM: r egular rhythm HEART SOUNDS: S1 normal heart sound present and S2 normal heart sound present GI: COMMON NORMALS: Normal to inspection, nondistended, normoactive bowel sounds present and non-tender Extremity: COMMON NORMALS: no pedal edema Neuro: SENSORIUM/ORIENTATION: No oriented to person, No oriented to place and No oriented to time Urinary Catheter Management: Lin: Cath Placed During This Visit: yes Reason for Continuing Indwelling Catheter: Acute Urinary Retention or Obstruction Urinary Catheter Date of Insertion: 05/29/24 Urinary Catheter Time of Insertion: 20:02 Data 06/03/24 04:56 06/03/24 04:56 A&P Assessment and plan (1) Heart failure with reduced ejection fraction: (2) Acute kidney injury: (3) Metastasis to brain: (4) Malignant melanoma of back: (5) Generalized weakness: (6) Weakness: (7) UTI (urinary tract infection): (8) Sepsis: (9) Septic shock: (10) NSTEMI (non-ST elevated myocardial infarction): (11) Pyelonephritis: (12) Hypernatremia: (13) Atrial fibrillation with RVR: Plan Generalized weakness and fatigue With underlying history of melanoma with metastasis to brain CT head CT/CT head wo con* [id number] IMPRESSION: 1. Redemonstrated hyperdense metastatic lesions, characterized in more detail on prior imaging. These appear not significantly changed in comparison to prior study. 2. No acute intracranial hemorrhage, large territorial infarction or midline shift. No headache, blurry vision, no focal weakness -With evidence of UTI, pyelonephritis Plan -Monitor -Goals of care decision with family, pending Acute encephalopathy, persistent encephalopathy -Likely multifactorial from melanoma with metastasis to brain -Sepsis, UTI, pyonephritis Pyelonephritis, UTI CT scan abdomen pelvis - CT/CT kidney stone [id number] IMPRESSION: 1. Severely thickened bladder decompressed status post catheterization. Bilateral perinephric fat stranding, greater on the right. Constellation of findings is nonspecific but concerning for ascending urinary tract infection. Plan -Blood cultures -Urine culture -Vancomycin -Zosyn Sepsis, with septic shock, resolving -Associate with pyelonephritis, UTI, with tachycardia, hypotension -Status post sepsis bolus -Status post hydrocortisone -Levophed to maintain MAP greater than 65 -off dopamine PRESTON Patient has recently finished Bactrim, could be playing a role -Sepsis playing a role -Monitor creatinine, monitor urine output Systolic CHF, monitor for risk of fluid overload Metastatic melanoma status post brain radiation secondary to brain metastatic lesion Failure to thrive Recent B12 was normal however low normal range, TSH normal Patient has been bedbound for last 2 days, developed sacral area ulcer Await goals of care decision with family Stage II sacral decubitus ulcer, monitor, wound care Hypocalcemia however corrected calcium with respect albumin will be towards normal Hypoalbuminemia Sinus tachycardia, monitor for risk of atrial flutter Goals of care discussed with the : Patient is DNR/DNI Dysphagia level 4 diet DVT prophylaxis: Heparin Plan for today, IV fluids for hypernatremia, will consider amiodarone drip for A-fib with RVR PDMP PDMP Reviewed: Not Reviewed Attestations 2 Medical Necessity Statement*: Patient requires hospitalization for hyponatremia, atrial fibrillation, sepsis, UTI Diagnoses Heart failure with reduced ejection fraction I50.20 Acute kidney injury N17.9 Metastasis to brain C79.31 Malignant melanoma of back C43.59 Generalized weakness R53.1 Weakness R53.1 UTI (urinary tract infection) N39.0 Sepsis A41.9 Septic shock A41.9; R65.21 NSTEMI (non-ST elevated myocardial infarction) I21.4 Pyelonephritis N12 Hypernatremia E87.0 Atrial fibrillation with RVR I48.91
[2024-06-03] MEDS: amiodarone 200 mg Tablet 400 MG PO (17:34)
[2024-06-03] MEDS: allopurinol 100 mg Tablet PO (17:34)
[2024-06-03] MEDS: levETIRAcetam 500 mg Tablet PO (17:34)
[2024-06-03] MEDS: sodium chloride 0.9% 1,000 ML 125 ML IV (17:40)
[2024-06-03 17:49] LABS: Vancomycin Trough 6.4 ug/mL (10-15)
[2024-06-04] VITALS: BP 127/80; PULSE 111; RESP 18; TEMP 36.9; O2SAT 99
[2024-06-04] MEDS: amiodarone 200 mg Tablet 400 MG PO (03:06)
[2024-06-04] MEDS: dilTIAZem 5 mg/mL SDV 5 mL IVP (03:06)
[2024-06-04] MEDS: acetaminophen 500 mg Tablet PO (03:17)
[2024-06-04 04:00] VITALS: BP 121/61; PULSE 144; TEMP 37.8; O2SAT 90
[2024-06-04] MEDS: amiodarone 150 MG/100 ML PREMIX 400 MG IV (04:14)
--- NOTE | 2024-06-04 04:33 | PC.NURSE ---
Recieved report from Russ. Patient arrived to floor from [facility], amiodarone started. Patient lethargic and confused, follows some commands.
[2024-06-04 04:39] VITALS: BP 122/58; PULSE 131; RESP 20; TEMP 37.4; O2SAT 96
[2024-06-04] MEDS: albumin 25 G/100 ML BAG 60 G IV (04:44)
--- NOTE | 2024-06-04 04:47 | PC.NURSE ---
pt transferred to [facility] rm 111-2
[2024-06-04] MEDS: piperacillin-tazobactam 3.375 GM in sodium chloride 0.9% (plus) 50 ML IV (05:44)
[2024-06-04 06:58] LABS: Basophils # 0.1 10^3/uL (0.0-0.1); Basophils % 0.9 %; Eosinophils # 0.1 10^3/uL (0.0-0.8); Eosinophils % 1.8 %; Hematocrit 31.5 % (37-53); Lymphocytes # 1.4 10^3/uL (0.8-4.8); Lymphocytes % 25.8 %; Mean Corpuscular HGB Conc 30.2 g/dL (30-55); Mean Corpuscular Hemoglobin 31.5 pg (27-33); Mean Corpuscular Volume 104.3 fl (82-101); Mean Platelet Volume 9.9 fL (7.4-10.4); Monocytes # 0.4 10^3/uL (0.2-0.9); Monocytes % 7.5 %; Neutrophils # 3.51 10^3/uL (1.8-7.7); Neutrophils % 62.9 %; Nucleated Red Blood Cells % 0.5 %; Platelet Count 251 10^3/cmm (157-399); Red Blood Count 3.02 10^6/uL (3.85-5.65); Red Cell Distribution Width 16.2 % (12.1-15.1); White Blood Count 5.58 10^3/uL (3.29-11.43)
[2024-06-04 07:16] LABS: Anion Gap 15.9 (5-19); Blood Urea Nitrogen 15 mg/dL (8-23); Calcium 8.3 mg/dL (8.5-10.5); Carbon Dioxide 27 mmol/L (22-29); Chloride 111 mmol/L (98-107); Creatinine Clr Calc Pharmacy 52.2647; Glucose 99 mg/dL (65-115); Osmolality Calculated 311 mOsm/kg (285-295); Potassium 3.9 mmol/L (3.5-5.1); Sodium 150 mmol/L (136-145)
[2024-06-04 07:29] VITALS: PULSE 117; RESP 18; O2SAT 92
[2024-06-04 13:22] VITALS: RESP 16; O2SAT 97
[2024-06-04] MEDS: morphine 4 mg/mL SDV 1 mL IVP ×2 (13:22→19:45)
--- NOTE | 2024-06-04 14:29 | P.PN_ITS ---
Subjective 2 Subjective: Patient was seen this morning, currently in A-fib heart rates in the 120s, he is alert to person, not to place, not to time, he does not follow commands, appears in mild to moderate respiratory distress, family members are at bedside, patient is is at bedside, she does not want Kush to suffer, remains bedbound, above all Kush's wants us to treat Kush's pain and suffering she does not want him to suffer. We discussed the risks and benefits of comfort care/hospice, she voiced understanding, all questions answered, agreed to proceed. All medical interventions to proceed with comfort care, hospice. Vitals/I&O/Wt Last Vital Signs Temp 99.4 F 06/04/24 04:39 Pulse 117 H 06/04/24 07:29 Resp 16 06/04/24 13:22 BP 122/58 06/04/24 04:39 Pulse Ox 97 06/04/24 13:22 O2 Del Method Room Air 06/04/24 07:29 O2 Flow Rate 2 06/04/24 04:39 06/03/24 06/04/24 06/04/24 22:59 06:59 14:59 Intake Total 150 / 300 250 / 550 855 / 855 Output Total 200 / 200 200 / 400 Balance -50 / 100 50 / 150 855 / 855 Weight last 48 hrs Weight 90.991 kg Weight 89.414 kg Physical Exam 2 Const: GENERAL APPEARANCE: lethargic ORIENTATION/CONSCIOUSNESS: Yes awake, Yes oriented to person, Yes confused and Yes lethargic; not oriented to place and not oriented to time Resp: COMMON NORMALS: normal respiratory effort, No retractions and No use of accessory muscles AUSCULTATION: crackles and wheezes Cardio: COMMON NORMALS: S1 normal heart sound present and S2 normal heart sound present RATE: tachycardic RHYTHM: abnormal rhythm HEART SOUNDS: S 1 normal heart sound present and S2 normal heart sound present GI: COMMON NORMALS: Normal to inspection, nondistended, normoactive bowel sounds present and non-tender Extremity: NARRATIVE EXTREMITY EXAM: 1+ edema Neuro: SENSORIUM/ORIENTATION: Yes oriented to person, No oriented to place, No oriented to time and Yes lethargic Urinary Catheter Management: Lin: Cath Placed During This Visit: yes Reason for Continuing Indwelling Catheter: Required Immobilization for Trauma or Surgery or Anesthesia Urinary Catheter Date of Insertion: 05/29/24 Urinary Catheter Time of Insertion: 20:02 Data 06/04/24 06:48 06/04/24 06:48 Micro: Microbiology 05/29/24 19:00 Blood Culture - Final Blood NO GROWTH AFTER 5 DAYS 05/29/24 18:56 Blood Culture - Final Blood NO GROWTH AFTER 5 DAYS A&P Assessment and plan (1) Heart failure with reduced ejection fraction: (2) Acute kidney injury: (3) Metastasis to brain: (4) Malignant melanoma of back: (5) Generalized weakness: (6) Weakness: (7) UTI (urinary tract infection): (8) Sepsis: (9) Septic shock: (10) NSTEMI (non-ST elevated myocardial infarction): (11) Pyelonephritis: (12) Hypernatremia: (13) Atrial fibrillation with RVR: (14) Admission for hospice care: (15) Need for comfort care: Plan Proceeding to comfort care, for metastatic melanoma to the brain, with A-fib, pyelonephritis, systolic CHF, generalized weakness, stage II decubitus ulcer, Generalized weakness and fatigue With underlying history of melanoma with metastasis to brain CT head CT/CT head wo con* [id number] IMPRESSION: 1. Redemonstrated hyperdense metastatic lesions, characterized in more detail on prior imaging. These appear not significantly changed in comparison to prior study. 2. No acute intracranial hemorrhage, large territorial infarction or midline shift. No headache, blurry vision, no focal weakness -With evidence of UTI, pyelonephritis Plan -Monitor -Goals of care decision with family, pending Acute encephalopathy, persistent encephalopathy -Likely multifactorial from melanoma with metastasis to brain -Sepsis, UTI, pyonephritis Pyelonephritis, UTI CT scan abdomen pelvis - CT/CT kidney stone [id number] IMPRESSION: 1. Severely thickened bladder decompressed status post catheterization. Bilateral perinephric fat stranding, greater on the right. Constellation of findings is nonspecific but concerning for ascending urinary tract infection. Plan -Blood cultures -Urine culture -Vancomycin -Zosyn Sepsis, with septic shock, resolving -Associate with pyelonephritis, UTI, with tachycardia, hypotension -Status post sepsis bolus -Status post hydrocortisone -Levophed to maintain MAP greater than 65 -off dopamine PRESTON Patient has recently finished Bactrim, could be playing a role -Sepsis playing a role -Monitor creatinine, monitor urine output Systolic CHF, monitor for risk of fluid overload Metastatic melanoma status post brain radiation secondary to brain metastatic lesion Failure to thrive Recent B12 was normal however low normal range, TSH normal Patient has been bedbound for last 2 days, developed sacral area ulcer Await goals of care decision with family Stage II sacral decubitus ulcer, monitor, wound care Hypocalcemia however corrected calcium with respect albumin will be towards normal Hypoalbuminemia Sinus tachycardia, monitor for risk of atrial flutter A-fib with RVR Goals of care discussed with the : Patient is DNR/DNI Dysphagia level 4 diet DVT prophylaxis: Heparin Plan for today, proceeding with comfort care PDMP PDMP Reviewed: Not Reviewed Attestations 2 Medical Necessity Statement*: Patient requires hospitalization for comfort care Diagnoses Heart failure with reduced ejection fraction I50.20 Acute kidney injury N17.9 Metastasis to brain C79.31 Malignant melanoma of back C43.59 Generalized weakness R53.1 Weakness R53.1 UTI (urinary tract infection) N39.0 Sepsis A41.9 Septic shock A41.9; R65.21 NSTEMI (non-ST elevated myocardial infarction) I21.4 Pyelonephritis N12 Hypernatremia E87.0 Atrial fibrillation with RVR I48.91 Admission for hospice care Z51.5 Need for comfort care
--- NOTE | 2024-06-04 17:54 | PC.NURSE ---
report called to [facility] pt is transferring to [facility]-comfort care to hospice, [facility] came in and visit the pt and pt's .
--- NOTE | 2024-06-04 17:57 | PC.NURSE ---
family notified of pt's transfer to [facility] room 258 all pt's belongings are sent with family.
[2024-06-04 19:45] VITALS: RESP 16; O2SAT 93
[2024-06-04] MEDS: acetaminophen 650 mg Supp PR (20:32)
[2024-06-04] MEDS: LORazepam 2 mg/mL INJ 1 mL IVP (23:36)
--- NOTE | 2024-06-05 00:21 | PC.NURSE ---
Floor nurse checked on patient at 1215. Patient has and family states it was at 1213. Charge nurse and floor nurse auscultated patient chest for a heart beat and TOD was 1217.
--- NOTE | 2024-06-05 00:40 | PC.NURSE ---
Floor nurse went to check up on the patient at 1215. Upon entering the room, the family was all at bedside and stated that he passed at 1213. Floor nurse went a got the charge nurse and both charge nurse and floor nurse assessed patient for a heart beat. TOD was announced at 1217. Dr. Vila the night hospitalist was notifed at 1220. network control operators supervisor was called at 1225 to be notified. MTS was called at 0034 and patient is not a candidate for donation and can be released. Dr. Xiong will be the doctor signing the certificate. Family is still with the patient. Floor nurse will give the family time and will be asking them about arrangements as needed and to allow nursing staff to provide postmortem care.
--- NOTE | 2024-06-05 02:01 | PC.NURSE ---
Suzanne nurse called [facility] to update them about the patient expiring at 1217.
--- NOTE | 2024-06-05 02:29 | PC.NURSE ---
Floor nurse received a call from [facility] giving us authorization to release the body to the home at 0220. [facility] was contacted at 0225 and informed them about the patient. home stated that they will be by in the morning to receive the patient.
--- NOTE | 2024-06-05 03:04 | PC.NURSE ---
[facility] supervisor component assembler nurse came to the facility. Floor nurse told them about the patient and the familys request to keep the wedding band on the left hand and no not cut the mustache at the home. [facility] nurse called [facility] to tell them about the information I told her. [place] [facility] [place] and maintenance worker house trailer at 0300.
[2024-06-05 03:08] VITALS: BP 0/0; PULSE 0; RESP 0; TEMP -17.7; TEMP 0; O2SAT 0
--- NOTE | 2024-06-09 11:39 | PM.DDS ---
Discharge Providers DDS Date of Admission: 05/29/24 21:05 Date Summary Completed: 06/09/24 Attending Provider at Admission: Cat Vila MD Time of : 00:14 Attending Provider at Discharge: Jone Xiong MD Primary Care Provider: Elayne Sims DO DS Diagnoses Hospital Diagnoses (1) Heart failure with reduced ejection fraction: (2) Acute kidney injury: (3) Metastasis to brain: (4) Malignant melanoma of back: (5) Generalized weakness: (6) Weakness: (7) UTI (urinary tract infection): (8) Sepsis: (9) Septic shock: (10) NSTEMI (non-ST elevated myocardial infarction): (11) Pyelonephritis: (12) Hypernatremia: (13) Atrial fibrillation with RVR: (14) Admission for hospice care: (15) Need for comfort care: Reason for Visit Reason for Visit ams Summary Date and Time of Date of : 06/05/24 Time of : 00:14 Summary Summary: This is a 78-year-old male with a past medical history of metastatic cutaneous melanoma with bony metastasis, brain metastasis, diverticulitis, COPD who presents to [facility] for generalized weakness and fatigue Patient was admitted to [facility] for sepsis, septic shock secondary to pyelonephritis, UTI, sacral decubitus ulcer, with failure to thrive, with PRESTON, with acute encephalopathy requiring ICU admission ICU admission. He received broad-spectrum antibiotic therapy, fluid therapy, and inpatient monitoring. Patient's hospitalization was complicated by A-fib with RVR requiring amiodarone drip, recurrent encephalopathy and generalized weakness and fatigue. After prolonged hospitalization, optimized medical therapy, and after extensive goals of care discussion with patient's family, decision was made by family to pursue hospice/comfort care with history of metastatic melanoma. Patient was admitted to inpatient hospice, hospice orders placed, time of 06/05/2024 at 12:14 AM. Additional Data Confirmation of as documented by pronouncing clinician: no pulse, no respirations and no heart sounds Family: at bedside Additional persons at bedside: nursing staff Attending/PCP notified?: I am attending Was code activated?: No Autopsy requested?: No Advance directives?: No Hospice patient?: Yes Discharge Plan Discharge Patient Disposition: Hospice - Medical Facility Condition: Serious Prescriptions: No Action albuterol sulfate 90 mcg/actuation HFA aerosol inhaler 2 puff inhalation Q6H levetiracetam [Keppra] 500 mg tablet 500 mg PO BID Qty: 60 2RF levothyroxine [Levoxyl] 100 mcg Tablet 100 mcg PO 0600 Qty: 30 0RF allopurinol 100 mg tablet 100 mg PO BID acetaminophen [Tylenol] 325 mg Tablet 325 mg PO Q4H PRN (Reason: Pain) magnesium hydroxide [Milk of Magnesia] 400 mg/5 mL Suspension 30 ml PO DAILY PRN (Reason: Constipation) bisacodyl [Dulcolax (bisacodyl)] 10 mg Suppository 10 mg MT DAILY PRN (Reason: Constipation) Fleet Enema 19-7 gram/118 mL Enema 118 ml MT DAILY PRN (Reason: Constipation) Discharge Orders: Discharge Order (Routine); Ordered 06/09/24 Ordered By: Jone Xiong Referrals: Elayne Sims DO [Primary Care Provider] - Patient Instructions: Opioid Safety DS Attestations Time Spent in /Discharge Care*: greater than 30 min Quality - AMI: AMI present?: No Quality - Stroke: CVA present?: No Quality - VTE: VTE present?: No Coding Level of Care Code 03496 Total time (in minutes) for Discharge: 45 Diagnoses Heart failure with reduced ejection fraction I50.20 Acute kidney injury N17.9 Metastasis to brain C79.31 Malignant melanoma of back C43.59 Generalized weakness R53.1 Weakness R53.1 UTI (urinary tract infection) N39.0 Sepsis A41.9 Septic shock A41.9; R65.21 NSTEMI (non-ST elevated myocardial infarction) I21.4 Pyelonephritis N12 Hypernatremia E87.0 Atrial fibrillation with RVR I48.91 Admission for hospice care Z51.5 Need for comfort care
== END 2024-06-05 03:00 | disposition expired | DRG 871 ==
LOC: ER 21:27 → MEDSURG 21:27 → ICU 05-30 07:32 → MEDSURG 06-01 18:48 → CSU 06-04 04:09 → MEDSURG 06-04 18:34
PROVIDERS: Admitting Provider Internal Medicine; Emergency Provider Emergency Medicine; PCP Family Medicine; Visit Provider Family Medicine
DX: A41.9 Sepsis, unspecified organism (principal); I21.4 Non-ST elevation (NSTEMI) myocardial infarction; R65.21 Severe sepsis with septic shock; N17.9 Acute kidney failure, unspecified; E87.0 Hyperosmolality and hypernatremia; N39.0 Urinary tract infection, site not specified; C79.31 Secondary malignant neoplasm of brain; C79.51 Secondary malignant neoplasm of bone; I50.22 Chronic systolic (congestive) heart failure; N12 Tubulo-interstitial nephritis, not specified as acute or chronic; G93.40 Encephalopathy, unspecified; I11.0 Hypertensive heart disease with heart failure; C43.59 Malignant melanoma of other part of trunk; J44.9 Chronic obstructive pulmonary disease, unspecified; E86.0 Dehydration; I48.91 Unspecified atrial fibrillation; L89.152 Pressure ulcer of sacral region, stage 2; L89.151 Pressure ulcer of sacral region, stage 1; I95.9 Hypotension, unspecified; R62.7 Adult failure to thrive; Z66 Do not resuscitate; E83.51 Hypocalcemia; E88.09 Other disorders of plasma-protein metabolism, not elsewhere classified; R00.0 Tachycardia, unspecified; Z91.81 History of falling; Z85.828 Personal history of other malignant neoplasm of skin; Z87.891 Personal history of nicotine dependence; Z85.51 Personal history of malignant neoplasm of bladder; Z79.899 Other long term (current) drug therapy; Z79.890 Hormone replacement therapy; Z68.28 Body mass index [BMI] 28.0-28.9, adult; Z51.5 Encounter for palliative care
CPT/HCPCS: 36415; 51702; 70450; 71045; 74176; 80048; 80053; 80202; 81001; 83605; 83735; 83880; 84100; 84145; 84484; 85025; 86140; 87040; 93005; 94664; 96360; 96372; 96374; 96376; 97110; 97116; 97161; 97530; 99285; A4222; J0283; J0696; J1265; J1644; J1720; J2060; J2270; J2405; J2543; J3370; J3475; J3490; J7030; J7050; J7120; J9999; P9046